=== PATIENT | female | born 1960 | race African-American/Black ===

== ENCOUNTER 2016-11-09 03:21 | Emergency (ER) | payer OTHER ==
--- NOTE | 2016-11-09 03:59 | ED ---
Anahi Monroe Matthew, scribed for Angel James MD on 11/09/16 at 0350 . Lower Extremity - HPI Summary HPI Summary: A 56 y/o female presents to the ED with a swollen right foot since 3 days ago. The patient was diagnosed with peripheral vascular disease on 11/06/16 and has not been able to sleep well, because she does not have to appropriate physician referral. Associated symptoms include mild right foot pain she noticed just [employer]. The pain is rated 2/10 in severity. She has dialysis at 05:00 today. - History of Current Complaint Chief Complaint: EDGeneral Stated Complaint: RIGHT FOOT SWOLLEN Time Seen by Provider: 11/09/16 03:33 Hx Obtained From: Patient Onset of Pain: Hours Onset/Duration: Still Present Severity Initially: Mild Severity Currently: Mild Pain Intensity: 2 Pain Scale Used: 0-10 Numeric Timing: Constant Location: Is Discrete @ - right foot Associated Signs And Symptoms: Positive: Swelling Able to Bear Weight: Yes - Allergies/Home Medications Allergies/Adverse Reactions: Allergies Allergy/AdvReac Type Severity Reaction Status Date / Time Chlorpromazine Allergy Unknown Verified 07/05/16 09:32 [From Thorazine] Reaction Details Codeine Allergy Unknown Verified 07/05/16 09:32 [From Tylenol with Codeine Reaction #3] Details Lorazepam [From Ativan] Allergy Unknown Verified 07/05/16 09:32 Reaction Details Warfarin [From Coumadin] Allergy Unknown Verified 07/05/16 09:32 Reaction Details PMH/Surg Hx/FS Hx/Imm Hx Endocrine/Hematology History: Reports: Hx Diabetes - type 2 Cardiovascular History: Reports: Hx Congestive Heart Failure, Hx Coronary Artery Disease, Hx Hypertension, Hx Myocardial Infarction - 12 years ago, Other Cardiovascular Problems/Disorders - HEART FAILURE Denies: Hx Pacemaker/ICD Respiratory History: Reports: Hx Chronic Obstructive Pulmonary Disease (COPD) History: Reports: Hx Chronic Renal Failure, Hx Dialysis - has been on dialysis for "over a year" per patient, Hx Renal Disease - Cancer History Hx Chemotherapy: No Hx Radiation Therapy: No - Surgical History Surgery Procedure, Year, and Place: TOE AMPUTATION, OVARIAN CYST REMOVED - Immunization History Date of Tetanus Vaccine: Unk Date of Influenza Vaccine: Fall 2014 Infectious Disease History: No Infectious Disease History: Denies: Traveled Outside the [place] in Last 30 Days - Family History Family History: No FHx of breast CA - Social History Alcohol Use: None Hx Substance Use: No Substance Use Type: Reports: None Hx Tobacco Use: Yes Smoking Status (MU): Former Smoker Review of Systems Constitutional: Negative Eyes: Negative ENT: Negative Cardiovascular: Negative Respiratory: Negative Gastrointestinal: Negative Genitourinary: Negative Positive: Myalgia - right foot pain, Edema - right foot Skin: Negative Neurological: Negative Psychological: Normal All Other Systems Reviewed And Are Negative: Yes Physical Exam Triage Information Reviewed: Yes Vital Signs On Initial Exam: Initial Vitals Temp Pulse Resp BP Pulse Ox 98.4 F 84 16 178/56 97 11/09/16 03:28 11/09/16 03:28 11/09/16 03:28 11/09/16 03:28 11/09/16 03:28 Vital Signs Reviewed: Yes Appearance: Positive: Well-Appearing, No Pain Distress Skin: Positive: Warm Eyes: Positive: PAULA ENT: Positive: Hearing grossly normal Neck: Positive: Supple Respiratory/Lung Sounds: Positive: Breath Sounds Present Cardiovascular: Positive: RRR Abdomen Description: Positive: Nontender, Soft Musculoskeletal: Positive: Other - lt foot s/p transmetatarsal amp, rt foot mild swelluing, ARM, GOOD CAP REFILL AND SENSATION, 1+ PULSE Neurological: Positive: Sensory/Motor Intact Diagnostics - Vital Signs Vital Signs Temp Pulse Resp BP Pulse Ox 11/09/16 03:28 98.4 F 84 16 178/56 97 - Laboratory Lab Statement: Any lab studies that have been ordered have been reviewed, and results considered in the medical decision making process. Lower Extremity Course/Dx - Course Assessment/Plan: A 56 y/o female presents to the ED with right foot pain and swelling. The patient was just diagnosed with peripheral vascular disease and was worried about the swelling. She will be discharged home and follow-up with her PCP. - Diagnoses Provider Diagnoses: Foot swelling Discharge - Discharge Plan Condition: Stable Disposition: HOME Patient Education Materials: Leg Edema (ED) Referrals: Fe Atkins MD [Primary Care Provider] - 2 Days Additional Instructions: Please follow-up with your primary care physician in two days. The documentation as recorded by the Anahi echavarria Matthew accurately reflects the service I personally performed and the decisions made by , Angel James MD.
[2016-11-09 05:09] VITALS: BP 174/62
== END 2016-11-09 05:08 | disposition home or self-care (01) ==
LOC: ED 03:21
DX: M79.671 Pain in right foot (principal); R60.0 Localized edema
CPT/HCPCS: 99282

== ENCOUNTER 2016-11-19 10:26 | Emergency (ER) | payer OTHER ==
[2016-11-19 11:17] LABS: Add Diff/Slide Review? Slide Review Added; Comments Flag Yes; Hematocrit 38 % (35-47); Hemoglobin 12.4 g/dl (12.0-16.0); Mean Corpuscular HGB Conc 33 g/dl (31-36); Mean Corpuscular Hemoglobin 32 pg (27-31); Mean Corpuscular Volume 97 fL (80-97); Mean Platelet Volume 7 um3 (7.4-10.4); Red Blood Count 3.88 10^6/ul (4.0-5.4); Red Cell Distribution Width 16 % (10.5-15); White Blood Count 8.4 10^3/ul (3.5-10.8)
[2016-11-19] MEDS ORDERED: Aspirin TAB* 325 MG PO ONE ×2 (11:25→11:42)
[2016-11-19 11:28] LABS: Albumin 3.7 g/dL (3.2-5.2); BUN/Creatinine Ratio 7.9 (8-20); EGFR Non-African American 19.4 (>60); Potassium 3.2 mmol/L (3.5-5.0); Total Bilirubin 0.2 mg/dL (0.2-1.0); Total Protein 7.7 g/dL (6.4-8.9)
--- NOTE | 2016-11-19 12:08 | RAD ---
Indication: Chest pain. Single frontal view of the chest performed at 1140 hours was reviewed. Comparison is made with previous exam dated April 20, 2016. No mediastinal shift is noted. Heart is of normal size and configuration. Lung cedillo appear clear. IMPRESSION: NO ACTIVE CARDIOPULMONARY DISEASE IS NOTED.
--- NOTE | 2016-11-19 15:11 | ED ---
Anahi Monroe Matthew, scribed for Ayaan Richard MD on 11/19/16 at 1125 . HPI Chest Pain - HPI Summary HPI Summary: A 56 y/o female presents to the ED with mid sternal, constant chest pressure since 10:00 this morning. The pain is describe as dull and achy, and currently rated 1/10 in severity. The patient was at dialysis when she began to have the chest pressure. She was given NTG at that time, which partially alleviated the pain. Associated symptoms include generalized weakness and lightheadedness. The patient denies nausea and diaphoresis. Her chest pain is unaffected by palpation of the chest. She has chronic SOB. The patient's had similar pain at dialysis in the past, and was sent to [facility]. - History of Current Complaint Chief Complaint: EDChestPainROMI Time Seen by Provider: 11/19/16 10:59 Hx Obtained From: Patient Onset/Duration: Started Hours Ago, Atraumatic, Still Present Time of Onset: 10:00 Timing: Constant Initial Severity: Moderate Current Severity: Mild Pain Intensity: 1 Pain Scale Used: 0-10 Numeric Chest Pain Location: Mid Sternal Chest Pain Radiates: No Character: Dull/Aching, Pressure/Squeezing Alleviating Factor(s): NTG 123 Associated Signs and Symptoms: Positive: Chest Pain, Shortness of Breath, Lightheadedness. Negative: Diaphoresis, Nausea, Vomiting - Allergy/Home Medications Allergies/Adverse Reactions: Allergies Allergy/AdvReac Type Severity Reaction Status Date / Time Chlorpromazine Allergy Unknown Verified 07/05/16 09:32 [From Thorazine] Reaction Details Codeine Allergy Unknown Verified 07/05/16 09:32 [From Tylenol with Codeine Reaction #3] Details Lorazepam [From Ativan] Allergy Unknown Verified 07/05/16 09:32 Reaction Details Warfarin [From Coumadin] Allergy Unknown Verified 07/05/16 09:32 Reaction Details PMH/Surg Hx/FS Hx/Imm Hx Endocrine/Hematology History: Reports: Hx Diabetes - type 2 Cardiovascular History: Reports: Hx Congestive Heart Failure, Hx Coronary Artery Disease, Hx Hypertension, Hx Myocardial Infarction - 12 years ago, Other Cardiovascular Problems/Disorders - HEART FAILURE Denies: Hx Pacemaker/ICD Respiratory History: Reports: Hx Chronic Obstructive Pulmonary Disease (COPD) History: Reports: Hx Chronic Renal Failure, Hx Dialysis - has been on dialysis for "over a year" per patient, Hx Renal Disease - Cancer History Hx Chemotherapy: No Hx Radiation Therapy: No - Surgical History Surgery Procedure, Year, and Place: TOE AMPUTATION, OVARIAN CYST REMOVED - Immunization History Date of Tetanus Vaccine: Unk Date of Influenza Vaccine: Fall 2014 Infectious Disease History: Yes Infectious Disease History: Denies: Traveled Outside the [place] in Last 30 Days - Family History Known Family History: Positive: None Family History: No FHx of breast CA - Social History Alcohol Use: None Hx Substance Use: No Substance Use Type: Reports: None Hx Tobacco Use: Yes Smoking Status (MU): Former Smoker Review of Systems Constitutional: Negative Negative: Skin Diaphoresis Eyes: Negative ENT: Negative Positive: Chest Pain - mid sternal Respiratory: Negative Gastrointestinal: Negative Negative: Vomiting, Nausea Genitourinary: Negative Musculoskeletal: Negative Skin: Negative Neurological: Other - lightheadedness Positive: Weakness - generalized Psychological: Normal All Other Systems Reviewed And Are Negative: Yes Physical Exam Triage Information Reviewed: Yes Vital Signs On Initial Exam: Initial Vitals Temp Pulse Resp BP Pulse Ox 98.0 F 86 20 122/65 100 11/19/16 10:29 11/19/16 10:29 11/19/16 10:29 11/19/16 10:29 11/19/16 10:29 Vital Signs Reviewed: Yes Appearance: Positive: Well-Appearing, No Pain Distress Skin: Positive: Warm, Skin Color Reflects Adequate Perfusion, Dry Head/Face: Positive: Normal Head/Face Inspection Eyes: Positive: Normal ENT: Positive: Normal ENT inspection Neck: Positive: Supple, Nontender Respiratory/Lung Sounds: Positive: Clear to Auscultation, Breath Sounds Present Cardiovascular: Positive: RRR Abdomen Description: Positive: Nontender, Soft Bowel Sounds: Positive: Present Musculoskeletal: Positive: Normal Neurological: Positive: Normal, Sensory/Motor Intact, Alert, Oriented to Person Place, Time Psychiatric: Positive: Normal, Affect/Mood Appropriate Diagnostics - Vital Signs Vital Signs Temp Pulse Resp BP Pulse Ox 11/19/16 10:29 98.0 F 86 20 122/65 100 - Laboratory Lab Results: Lab Results 11/19/16 11/19/16 11/19/16 Range/Units 10:44 10:51 11:18 WBC 8.4 (3.5-10.8) 10^3/ul RBC 3.88 L (4.0-5.4) 10^6/ul Hgb 12.4 (12.0-16.0) g/dl Hct 38 (35-47) % MCV 97 (80-97) fL MCH 32 H (27-31) pg MCHC 33 (31-36) g/dl RDW 16 H (10.5-15) % Plt Count 304 (150-450) 10^3/ul MPV 7 L (7.4-10.4) um3 Neut % (Auto) 68.7 (38-83) % Lymph % (Auto) 18.8 L (25-47) % [place] % (Auto) 9.9 H (1-9) % Eos % (Auto) 1.2 (0-6) % Baso % (Auto) 1.4 (0-2) % Absolute Neuts (auto) 5.8 (1.5-7.7) 10^3/ul Absolute Lymphs (auto) 1.6 (1.0-4.8) 10^3/ul Absolute Monos (auto) 0.8 (0-0.8) 10^3/ul Absolute Eos (auto) 0.1 (0-0.6) 10^3/ul Absolute Basos (auto) 0.1 (0-0.2) 10^3/ul Absolute Nucleated RBC 0.02 10^3/ul Nucleated RBC % 0.3 Sodium 130 L (133-145) mmol/L Potassium 3.2 L (3.5-5.0) mmol/L Chloride 92 L (101-111) mmol/L Carbon Dioxide 34 H (22-32) mmol/L Anion Gap 4 (2-11) mmol/L BUN 20 (6-24) mg/dL Creatinine 2.54 H (0.51-0.95) mg/dL Est GFR ( Amer) 25.0 (>60) Est GFR (Non-Af Amer) 19.4 (>60) BUN/Creatinine Ratio 7.9 L (8-20) Glucose 101 H (70-100) mg/dL Lactic Acid 0.9 (0.5-2.0) mmol/L Calcium 9.0 (8.6-10.3) mg/dL Total Bilirubin 0.20 (0.2-1.0) mg/dL AST 17 (13-39) U/L ALT 8 (7-52) U/L Alkaline Phosphatase 94 (34-104) U/L Troponin I 0.00 (<0.04) ng/mL Total Protein 7.7 (6.4-8.9) g/dL Albumin 3.7 (3.2-5.2) g/dL Globulin 4.0 (2-4) g/dL Albumin/Globulin Ratio 0.9 L (1-3) 11/19/16 Range/Units 14:00 WBC (3.5-10.8) 10^3/ul RBC (4.0-5.4) 10^6/ul Hgb (12.0-16.0) g/dl Hct (35-47) % MCV (80-97) fL MCH (27-31) pg MCHC (31-36) g/dl RDW (10.5-15) % Plt Count (150-450) 10^3/ul MPV (7.4-10.4) um3 Neut % (Auto) (38-83) % Lymph % (Auto) (25-47) % [place] % (Auto) (1-9) % Eos % (Auto) (0-6) % Baso % (Auto) (0-2) % Absolute Neuts (auto) (1.5-7.7) 10^3/ul Absolute Lymphs (auto) (1.0-4.8) 10^3/ul Absolute Monos (auto) (0-0.8) 10^3/ul Absolute Eos (auto) (0-0.6) 10^3/ul Absolute Basos (auto) (0-0.2) 10^3/ul Absolute Nucleated RBC 10^3/ul Nucleated RBC % Sodium (133-145) mmol/L Potassium (3.5-5.0) mmol/L Chloride (101-111) mmol/L Carbon Dioxide (22-32) mmol/L Anion Gap (2-11) mmol/L BUN (6-24) mg/dL Creatinine (0.51-0.95) mg/dL Est GFR ( Amer) (>60) Est GFR (Non-Af Amer) (>60) BUN/Creatinine Ratio (8-20) Glucose (70-100) mg/dL Lactic Acid (0.5-2.0) mmol/L Calcium (8.6-10.3) mg/dL Total Bilirubin (0.2-1.0) mg/dL AST (13-39) U/L ALT (7-52) U/L Alkaline Phosphatase (34-104) U/L Troponin I 0.01 (<0.04) ng/mL Total Protein (6.4-8.9) g/dL Albumin (3.2-5.2) g/dL Globulin (2-4) g/dL Albumin/Globulin Ratio (1-3) Result Diagrams: 11/19/16 10:51 11/19/16 10:44 Lab Statement: Any lab studies that have been ordered have been reviewed, and results considered in the medical decision making process. - Radiology CXR Xray Interpretation: No Acute Changes - No Active Cardiopulmonary Disease is noted Radiology Interpretation Completed By: Radiologist - EKG 10:27 Cardiac Rate: NL - 78 bpm EKG Rhythm: Sinus Rhythm Ectopy: PVCs Chest Pain Course/Dx - Course Course Of Treatment: Rosa Tomas had an episode of CP after dialysis today. This has happened many times before. It was almost completely resoved by the time she got here and did continue to resolve. She had a normal W/U here including two troponins and went home in stable condition. - Diagnoses Provider Diagnoses: Chest pain Discharge - Discharge Plan Condition: Stable Disposition: HOME Patient Education Materials: Chest Pain (ED) Referrals: Fe Atkins MD [Primary Care Provider] - 2 Days Additional Instructions: Please follow-up with your primary care physician. The documentation as recorded by the Anahi echavarria Matthew accurately reflects the service I personally performed and the decisions made by me, Ayaan Richard MD.
[2016-11-19 15:46] VITALS: BP 115/66
== END 2016-11-19 15:44 | disposition home or self-care (01) ==
LOC: ED 10:26
DX: R07.9 Chest pain, unspecified (principal); R06.2 Wheezing; R42 Dizziness and giddiness; Z99.2 Dependence on renal dialysis; Z87.891 Personal history of nicotine dependence
CPT/HCPCS: 36415; 71010; 80053; 83605; 84484; 85025; 93005; 99283

== ENCOUNTER → 2017-02-26 17:54 | Emergency (ER) | payer OTHER ==
[2017-02-26 19:52] LABS: Hematocrit 33 % (35-47); Hemoglobin 11.1 g/dl (12.0-16.0); Mean Corpuscular HGB Conc 33 g/dl (31-36); Mean Corpuscular Hemoglobin 32 pg (27-31); Mean Corpuscular Volume 97 fL (80-97); Mean Platelet Volume 6 um3 (7.4-10.4); Red Blood Count 3.45 10^6/ul (4.0-5.4); Red Cell Distribution Width 18 % (10.5-15); White Blood Count 7.9 10^3/ul (3.5-10.8)
[2017-02-26 20:01] LABS: Urine Bacteria Absent (Absent); Urine Bilirubin Negative (Negative); Urine Glucose Negative (Negative); Urine Nitrite Negative (Negative)
[2017-02-26 20:06] LABS: ALT 7 U/L (7-52); AST 13 U/L (13-39); Albumin 3.5 g/dL (3.2-5.2); Alkaline Phosphatase 102 U/L (34-104); Anion Gap 6 mmol/L (2-11); BUN/Creatinine Ratio 6.1 (8-20); Blood Urea Nitrogen 18 mg/dL (6-24); CO2 Carbon Dioxide 31 mmol/L (22-32); Calcium 8.4 mg/dL (8.6-10.3); Chloride 92 mmol/L (101-111); EGFR African American 20.9 (>60); EGFR Non-African American 16.2 (>60); Globulin 3.6 g/dL (2-4); Glucose 145 mg/dL (70-100); Potassium 3.3 mmol/L (3.5-5.0); Sodium 129 mmol/L (133-145); Total Protein 7.1 g/dL (6.4-8.9)
[2017-02-26 20:07] LABS: Benzodiazepine Urine Screen None Detected (None Detect)
[2017-02-26 20:34] LABS: Acetaminophen < 15 mcg/mL; Alcohol < 10 mg/dL (<10); Salicylate < 2.50 mg/dL (<30)
[2017-02-26 20:44] LABS: TSH (Thyroid Stimulating Horm) 2.65 mcIU/mL (0.34-5.60)
--- NOTE | 2017-02-26 23:03 | ED ---
Prince Monroe Erika, scribed for Ayaan Richard MD on 02/26/17 at 2051 . Psychiatric Complaint - HPI Summary HPI Summary: Patient is a 56-year-old female presenting to the ED for a MHU evaluation. Patient reports she called her therapist today and told her she was upset and angry, and her therapist called the police. Pt reports she takes depakote and risperidol - therapist states pt has missed 11 doses of medications. Pt denies thoughts of harming herself or others. - History Of Current Complaint Chief Complaint: EDMentalHealth Time Seen by Provider: 02/26/17 18:22 Hx Obtained From: Patient, Other: - Therapist Onset/Duration: Gradual Onset, Lasting Weeks, Still Present Timing: Constant Severity Currently: Moderate Character: Angry Aggravating Factor(s): Medication Non-compliance Alleviating Factor(s): Nothing Has Suicidal: Denies: Thoughts Has Homicidal: Denies: Thoughts - Allergies/Home Medications Allergies/Adverse Reactions: Allergies Allergy/AdvReac Type Severity Reaction Status Date / Time Chlorpromazine Allergy Unknown Verified 07/05/16 09:32 [From Thorazine] Reaction Details Codeine Allergy Unknown Verified 07/05/16 09:32 [From Tylenol with Codeine Reaction #3] Details Lorazepam [From Ativan] Allergy Unknown Verified 07/05/16 09:32 Reaction Details Warfarin [From Coumadin] Allergy Unknown Verified 07/05/16 09:32 Reaction Details Home Medications: Home Medications B-Complex W/ C & Folic Acid [Suad-Fletcher] 1 tab PO DAILY 02/26/17 [History Confirmed 02/26/17] Divalproex DR TAB(*) [Depakote DR(*)] 500 mg PO TID 02/26/17 [History Confirmed 02/26/17] PMH/Surg Hx/FS Hx/Imm Hx Endocrine/Hematology History: Reports: Hx Diabetes - type 2 Cardiovascular History: Reports: Hx Congestive Heart Failure, Hx Coronary Artery Disease, Hx Hypertension, Hx Myocardial Infarction - 12 years ago, Other Cardiovascular Problems/Disorders - HEART FAILURE Denies: Hx Pacemaker/ICD Respiratory History: Reports: Hx Chronic Obstructive Pulmonary Disease (COPD) History: Reports: Hx Chronic Renal Failure, Hx Dialysis - has been on dialysis for "over a year" per patient, Hx Renal Disease - Cancer History Hx Chemotherapy: No Hx Radiation Therapy: No - Surgical History Surgery Procedure, Year, and Place: TOE AMPUTATION, OVARIAN CYST REMOVED - Immunization History Date of Tetanus Vaccine: Unk Date of Influenza Vaccine: Fall 2014 Infectious Disease History: Yes Infectious Disease History: Denies: Traveled Outside the [place] in Last 30 Days - Family History Family History: No FHx of breast CA - Social History Alcohol Use: None Hx Substance Use: No Substance Use Type: Reports: None Hx Tobacco Use: Yes Smoking Status (MU): Former Smoker Review of Systems Negative: Fever Psychological: Other - upset and angry All Other Systems Reviewed And Are Negative: Yes Physical Exam Triage Information Reviewed: Yes Vital Signs On Initial Exam: Initial Vitals Temp Pulse Resp BP Pulse Ox 99.9 F 100 20 181/97 94 02/26/17 18:11 02/26/17 18:11 02/26/17 18:11 02/26/17 18:11 02/26/17 18:11 Vital Signs Reviewed: Yes Appearance: Positive: Well-Appearing, No Pain Distress, Obese Skin: Positive: Warm, Skin Color Reflects Adequate Perfusion, Dry Head/Face: Positive: Normal Head/Face Inspection Eyes: Positive: Normal ENT: Positive: Normal ENT inspection Neck: Positive: Supple, Nontender Respiratory/Lung Sounds: Positive: Clear to Auscultation, Breath Sounds Present Cardiovascular: Positive: Tachycardia - at 100 bpm Abdomen Description: Positive: Nontender, Soft Bowel Sounds: Positive: Present Musculoskeletal: Positive: Normal Neurological: Positive: Normal Psychiatric: Positive: Affect/Mood Appropriate - Manny Coma Scale Coma Scale Total: 15 Diagnostics - Vital Signs Vital Signs Temp Pulse Resp BP Pulse Ox 02/26/17 18:13 99.9 F 100 20 181/97 94 02/26/17 18:11 99.9 F 100 20 181/97 94 - Laboratory Lab Results: Lab Results 02/26/17 02/26/17 02/26/17 Range/Units 19:45 19:45 19:45 WBC 7.9 (3.5-10.8) 10^3/ul RBC 3.45 L (4.0-5.4) 10^6/ul Hgb 11.1 L (12.0-16.0) g/dl Hct 33 L (35-47) % MCV 97 (80-97) fL MCH 32 H (27-31) pg MCHC 33 (31-36) g/dl RDW 18 H (10.5-15) % Plt Count 218 (150-450) 10^3/ul MPV 6 L (7.4-10.4) um3 Neut % (Auto) 68.8 (38-83) % Lymph % (Auto) 17.7 L (25-47) % [place] % (Auto) 11.6 H (1-9) % Eos % (Auto) 0.9 (0-6) % Baso % (Auto) 1.0 (0-2) % Absolute Neuts (auto) 5.4 (1.5-7.7) 10^3/ul Absolute Lymphs (auto) 1.4 (1.0-4.8) 10^3/ul Absolute Monos (auto) 0.9 H (0-0.8) 10^3/ul Absolute Eos (auto) 0.1 (0-0.6) 10^3/ul Absolute Basos (auto) 0.1 (0-0.2) 10^3/ul Absolute Nucleated RBC 0.01 10^3/ul Nucleated RBC % 0.2 Sodium 129 L (133-145) mmol/L Potassium 3.3 L (3.5-5.0) mmol/L Chloride 92 L (101-111) mmol/L Carbon Dioxide 31 (22-32) mmol/L Anion Gap 6 (2-11) mmol/L BUN 18 (6-24) mg/dL Creatinine 2.97 H (0.51-0.95) mg/dL Est GFR ( Amer) 20.9 (>60) Est GFR (Non-Af Amer) 16.2 (>60) BUN/Creatinine Ratio 6.1 L (8-20) Glucose 145 H (70-100) mg/dL Calcium 8.4 L (8.6-10.3) mg/dL Total Bilirubin 0.20 (0.2-1.0) mg/dL AST 13 (13-39) U/L ALT 7 (7-52) U/L Alkaline Phosphatase 102 (34-104) U/L Total Protein 7.1 (6.4-8.9) g/dL Albumin 3.5 (3.2-5.2) g/dL Globulin 3.6 (2-4) g/dL Albumin/Globulin Ratio 1.0 (1-3) TSH 2.65 (0.34-5.60) mcIU/mL Urine Color Yellow Urine Appearance Cloudy Urine pH 6.0 (5-9) Ur Specific [place] 1.014 (1.010-1.030) Urine Protein 3+(>=500 mg/dl) H (Negative) Urine Ketones Negative (Negative) Urine Blood 1+ H (Negative) Urine Nitrate Negative (Negative) Urine Bilirubin Negative (Negative) Urine Urobilinogen Negative (Negative) Ur Leukocyte Esterase 3+ H (Negative) Urine WBC (Auto) 3+(>20/hpf) H (Absent) Urine RBC (Auto) 2+(6-10/hpf) H (Absent) Ur Squamous Epith Cells Present H (Absent) Urine Bacteria Absent (Absent) Hyaline Casts Present H (Absent) Urine Glucose Negative (Negative) Salicylates < 2.50 (<30) mg/dL Urine Opiates Screen (None Detect) Acetaminophen < 15 mcg/mL Ur Barbiturates Screen (None Detect) Ur Phencyclidine Scrn (None Detect) Ur Amphetamines Screen (None Detect) U Benzodiazepines Scrn (None Detect) Urine Cocaine Screen (None Detect) U Cannabinoids Screen (None Detect) Serum Alcohol < 10 (<10) mg/dL 02/26/17 Range/Units 19:45 WBC (3.5-10.8) 10^3/ul RBC (4.0-5.4) 10^6/ul Hgb (12.0-16.0) g/dl Hct (35-47) % MCV (80-97) fL MCH (27-31) pg MCHC (31-36) g/dl RDW (10.5-15) % Plt Count (150-450) 10^3/ul MPV (7.4-10.4) um3 Neut % (Auto) (38-83) % Lymph % (Auto) (25-47) % [place] % (Auto) (1-9) % Eos % (Auto) (0-6) % Baso % (Auto) (0-2) % Absolute Neuts (auto) (1.5-7.7) 10^3/ul Absolute Lymphs (auto) (1.0-4.8) 10^3/ul Absolute Monos (auto) (0-0.8) 10^3/ul Absolute Eos (auto) (0-0.6) 10^3/ul Absolute Basos (auto) (0-0.2) 10^3/ul Absolute Nucleated RBC 10^3/ul Nucleated RBC % Sodium (133-145) mmol/L Potassium (3.5-5.0) mmol/L Chloride (101-111) mmol/L Carbon Dioxide (22-32) mmol/L Anion Gap (2-11) mmol/L BUN (6-24) mg/dL Creatinine (0.51-0.95) mg/dL Est GFR ( Amer) (>60) Est GFR (Non-Af Amer) (>60) BUN/Creatinine Ratio (8-20) Glucose (70-100) mg/dL Calcium (8.6-10.3) mg/dL Total Bilirubin (0.2-1.0) mg/dL AST (13-39) U/L ALT (7-52) U/L Alkaline Phosphatase (34-104) U/L Total Protein (6.4-8.9) g/dL Albumin (3.2-5.2) g/dL Globulin (2-4) g/dL Albumin/Globulin Ratio (1-3) TSH (0.34-5.60) mcIU/mL Urine Color Urine Appearance Urine pH (5-9) Ur Specific [place] (1.010-1.030) Urine Protein (Negative) Urine Ketones (Negative) Urine Blood (Negative) Urine Nitrate (Negative) Urine Bilirubin (Negative) Urine Urobilinogen (Negative) Ur Leukocyte Esterase (Negative) Urine WBC (Auto) (Absent) Urine RBC (Auto) (Absent) Ur Squamous Epith Cells (Absent) Urine Bacteria (Absent) Hyaline Casts (Absent) Urine Glucose (Negative) Salicylates (<30) mg/dL Urine Opiates Screen None detected (None Detect) Acetaminophen mcg/mL Ur Barbiturates Screen None detected (None Detect) Ur Phencyclidine Scrn None detected (None Detect) Ur Amphetamines Screen None detected (None Detect) U Benzodiazepines Scrn None detected (None Detect) Urine Cocaine Screen None detected (None Detect) U Cannabinoids Screen Presumptive positive H (None Detect) Serum Alcohol (<10) mg/dL Result Diagrams: 02/26/17 19:45 02/26/17 19:45 Lab Statement: Any lab studies that have been ordered have been reviewed, and results considered in the medical decision making process. Course/Dx - Course Course Of Treatment: Patient is medically cleared for MHU evaluation at 20:43 - Differential Dx/Clinical Impression Provider Diagnosis: Psychosis Discharge - Discharge Plan Condition: Stable Disposition: OTHER Discharge Disposition Comment: Change of Shift The documentation as recorded by the Prince echavarria Erika accurately reflects the service I personally performed and the decisions made by me, Ayaan Richard MD.
[2017-02-26 23:04] VITALS: BP 188/90
== END ==
LOC: ED 17:54
DX: F29 Unspecified psychosis not due to a substance or known physiological condition (principal); Z87.891 Personal history of nicotine dependence
CPT/HCPCS: 36415; 80053; 80307; 80320; 80329; 81003; 81015; 84443; 85025; 87086; 99282; G0480

== ENCOUNTER 2017-03-03 00:48 | Inpatient (IN) | payer OTHER ==
[2017-03-03] MEDS ORDERED: Levalbuterol 0.63MG/3ML NEB INH ONE (00:53)
[2017-03-03] MEDS ORDERED: methylPREDNISolone 125 MG* 2 ML VIAL IV ONE (00:56)
[2017-03-03 01:09] LABS: Hematocrit 34 % (35-47); Hemoglobin 11.1 g/dl (12.0-16.0); Mean Corpuscular HGB Conc 33 g/dl (31-36); Mean Corpuscular Hemoglobin 32 pg (27-31); Mean Corpuscular Volume 97 fL (80-97); Mean Platelet Volume 7 um3 (7.4-10.4); Red Blood Count 3.49 10^6/ul (4.0-5.4); Red Cell Distribution Width 17 % (10.5-15); White Blood Count 11.2 10^3/ul (3.5-10.8)
[2017-03-03 01:12] LABS: BIPAP 14/6; FIO2 100
[2017-03-03 01:22] LABS: PCO2 Arterial 70 mmHg (35-45)
[2017-03-03 01:25] LABS: Albumin 3.6 g/dL (3.2-5.2); BUN/Creatinine Ratio 8.7 (8-20); Calcium 8.5 mg/dL (8.6-10.3); EGFR African American 14.6 (>60); EGFR Non-African American 11.4 (>60); Globulin 3.7 g/dL (2-4); Potassium 3.2 mmol/L (3.5-5.0); Total Bilirubin 0.3 mg/dL (0.2-1.0); Total Protein 7.3 g/dL (6.4-8.9)
[2017-03-03] MEDS ORDERED: Nitroglycerin 2% OINT* 1 GM PAK TOPICAL ONE (01:29)
[2017-03-03] MEDS ORDERED: Benzonatate CAP* 100 MG PO PRN (02:09)
[2017-03-03] MEDS ORDERED: Ipratropium 0.5MG/2.5ML NEB* 0.5 MG/2.5 ML NEB.SOLN INH PRN (02:09)
[2017-03-03] MEDS ORDERED: Polyethylene Glycol 3350* 17 GM PACKET PO PRN (02:09)
[2017-03-03] MEDS ORDERED: hydrOXYzine HCL TAB* 10 MG PO PRN (02:09)
[2017-03-03] MEDS: Albuterol 2.5 MG/3 ML NEB.SOL* (0.083%) INH SCH ×2 (02:21→07:19)
[2017-03-03 02:22] LABS: BIPAP 14/6; FIO2 50
[2017-03-03 02:24] LABS: PCO2 Arterial 70 mmHg (35-45)
[2017-03-03] MEDS ORDERED: Azithromycin IV(*) 500 MG in NS 0.9% 250 ML* 250 ML IVPB SCH (03:00)
[2017-03-03] MEDS ORDERED: Dextrose 50% Syringe 50 ML* 25 GM/50 ML SYRINGE IV PUSH PRN (04:04)
[2017-03-03 04:49] LABS: Troponin I 0.03 ng/mL (<0.04)
[2017-03-03] MEDS: Heparin VIAL(*) 5000 UNITS/ML VIAL (FIVE THOUSAND) SUBCUT SCH ×3 (05:41→21:08)
[2017-03-03] MEDS: methylPREDNISolone SOD 40 MG* 1 ML VIAL IV SCH ×2 (05:41→18:11)
--- NOTE | 2017-03-03 05:45 | ED ---
I, Oh,Mariaelena, scribed for Perez Mora MD on 03/03/17 at 0058 . Shortness of Breath - HPI Summary HPI Summary: This 56 y/o female is BIBA for acute onset of SOB since 30 minutes ago. Pt was able to speak full sentences at time of initial encounter. The respiratory distress continued to deteriorate in spite of atropine and albuterol, and pt was noted with 70 % at a point en route. She is brought into ED with BiPAP mask on. Pt is a F dialysis pt and had last one 2 days ago. She is due for another one upcoming morning. PMHx does include COPD, HTN, HLD, DM with ERD and hemodialysis, CAD s/p stent, NM, and bipolar. - History of Current Complaint Chief Complaint: EDRespiratoryDistress Hx Obtained From: Patient, EMS Onset/Duration: Sudden Onset Timing: Constant Dyspnea At: Rest Aggrevating Factors: Nothing Alleviating Factors: Nothing Associated Signs & Symptoms: Wheezing, Chest Pain Unrelated to Cough - Allergy/Home Medications Allergies/Adverse Reactions: Allergies Allergy/AdvReac Type Severity Reaction Status Date / Time Chlorpromazine Allergy Unknown Verified 03/03/17 01:00 [From Thorazine] Reaction Details Codeine Allergy Unknown Verified 03/03/17 01:00 [From Tylenol with Codeine Reaction #3] Details Lorazepam [From Ativan] Allergy Unknown Verified 03/03/17 01:00 Reaction Details Warfarin [From Coumadin] Allergy Unknown Verified 03/03/17 01:00 Reaction Details Home Medications: Home Medications Benzonatate CAP* [Tessalon 100 MG CAP*] 100 mg PO TID PRN 03/03/17 [History Confirmed 03/03/17] Clopidogrel TAB* [Plavix TAB*] 75 mg PO DAILY 03/03/17 [History Confirmed ] Ipratropium 0.5MG/2.5ML NEB* [Atrovent 0.5 MG NEB.LUZ*] 0.5 mg INH Q6H PRN 03/03 [History Confirmed 03/03/17] Nitroglycerin TAB 0.4 MG* 0.4 mg SL Q5M PRN 03/03/17 [History Confirmed 03/03/17 ] Polyethylene Glycol 3350 BTL* [Miralax] 1 pow PO DAILY PRN 03/03/17 [History Confirmed 03/03/17] Sodium Polystyrene Sulfonate [Sodium Polystyrene Sulfon] 15 gm PO DAILY PRN [History Confirmed 03/03/17] hydrOXYzine HCL TAB* [Atarax 10 MG TAB*] 10 mg PO TID PRN 03/03/17 [History Confirmed 03/03/17] PMH/Surg Hx/FS Hx/Imm Hx Endocrine/Hematology History: Reports: Hx Diabetes - type 2 Cardiovascular History: Reports: Hx Congestive Heart Failure, Hx Coronary Artery Disease, Hx Hypertension, Hx Myocardial Infarction - 12 years ago, Other Cardiovascular Problems/Disorders - HEART FAILURE Denies: Hx Pacemaker/ICD Respiratory History: Reports: Hx Chronic Obstructive Pulmonary Disease (COPD) History: Reports: Hx Chronic Renal Failure, Hx Dialysis - has been on dialysis for "over a year" per patient, Hx Renal Disease Psychiatric History: Denies: Hx Eating Disorder - Cancer History Hx Chemotherapy: No Hx Radiation Therapy: No - Surgical History Surgery Procedure, Year, and Place: TOE AMPUTATION, OVARIAN CYST REMOVED - Immunization History Date of Tetanus Vaccine: Unk Date of Influenza Vaccine: Fall 2014 Infectious Disease History: Denies: Traveled Outside the [place] in Last 30 Days - Family History Known Family History: Negative: Other Family History: No FHx of breast CA - Social History Alcohol Use: None Hx Substance Use: No Substance Use Type: Reports: None Hx Tobacco Use: Yes Smoking Status (MU): Former Smoker Review of Systems Negative: Fever Negative: Photophobia, Erythema Negative: Sore Throat, Nasal Discharge Positive: Chest Pain Positive: Shortness Of Breath Negative: Abdominal Pain, Vomiting, Nausea Negative: dysuria, hematuria Negative: Myalgia Negative: Rash Neurological: Other - Negative for dizziness Negative: Headache Negative: Anxious, Depressed All Other Systems Reviewed And Are Negative: Yes Physical Exam - Summary Physical Exam Summary: Constitutional: Well-developed, Well-nourished, Alert. (-) Distressed Skin: Warm, Dry HENT: Normocephalic; Atraumatic Eyes: Conjunctiva normal Neck: Musculoskeletal ROM normal neck. (-) JVD, (-) Stridor, (-) Tracheal deviation Cardio: Rhythm regular, rate normal, Heart sounds normal; Intact distal pulses; The pedal pulses are 2+ and symmetric. Radial pulses are 2+ and symmetric. (-) Murmur Pulmonary/Chest wall: Diminished breath sound. BiPAP mask on. Abd: Soft, (-) Tenderness, (-) Distension, (-) Guarding, (-) Rebound Musculoskeletal: (-) Edema Lymph: (-) Cervical adenopathy Neuro: Alert, Oriented x3 Psych: Mood and affect Normal Triage Information Reviewed: Yes Vital Signs Reviewed: Yes Diagnostics - Laboratory Result Diagrams: 03/03/17 00:50 03/03/17 00:50 Lab Statement: Any lab studies that have been ordered have been reviewed, and results considered in the medical decision making process. - Radiology CXR Xray Interpretation: Positive (See Comments) - Cephalization of the vessels. No infiltrates. Radiology Interpretation Completed By: ED Physician - See EMR - EKG 0051 Cardiac Rate: Other Rate - a-flutter with rapid afib EKG Rhythm: Atrial Flutter ST Segment: Normal EKG Interpretation: a-flutter with rapid afib Re-Evaluation - Re-Evaluation First Eval Re-Evaluation Time: 01:27 Change: Improved Comment: Pt confirms that she is full code Course/Dx - Course Assessment/Plan: This 56 y/o female is BIBA to ED with BiPAP machine on for acute respiratory distress. Pt was able to speak full sentences at time of initial encounter, but her breathing worsens in spite of - Diagnoses Provider Diagnoses: CO2 narcosis, Respiratory failure, COPD exacerbation - Physician Notifications Discussed Care of Patient With: Dr. Gandara (Hospitalist) at 0143 AM Time Discussed With Above Provider: 01:43 - Critical Care Time Critical Care Time: 30-74 min - 45 minutes Discharge - Discharge Plan Condition: Stable Disposition: ADMITTED TO [facility] Referrals: Fe Atkins MD [Primary Care Provider] - The documentation as recorded by the Bravo echavarria Soohyun accurately reflects the service I personally performed and the decisions made by me, Perez Mora MD.
[2017-03-03 06:03] LABS: Hematocrit 29 % (35-47); Mean Corpuscular HGB Conc 34 g/dl (31-36); Mean Corpuscular Hemoglobin 33 pg (27-31); Mean Corpuscular Volume 96 fL (80-97); Mean Platelet Volume 6 um3 (7.4-10.4); Red Blood Count 3.06 10^6/ul (4.0-5.4); Red Cell Distribution Width 17 % (10.5-15); White Blood Count 10.4 10^3/ul (3.5-10.8)
[2017-03-03 06:21] LABS: BUN/Creatinine Ratio 9.5 (8-20); Calcium 7.9 mg/dL (8.6-10.3); EGFR African American 15.3 (>60); EGFR Non-African American 11.9 (>60); Potassium 4.3 mmol/L (3.5-5.0)
[2017-03-03] MEDS: Insulin LISPRO* 1 UNITS UNIT SUBCUT SCH ×4 (06:22→21:12)
--- NOTE | 2017-03-03 07:48 | RAD ---
INDICATION: Short of breath COMPARISON: November 19, 2016 TECHNIQUE: An AP portable view obtained at 0117 hours is submitted. FINDINGS: Bones/Soft Tissues: There are no acute bony findings. Cardiomediastinal: The heart is normal in size. The central pulmonary vessels and interstitium are prominent compatible with interstitial congestion. Given these diffuse changes coexistent infiltrate cannot be excluded.. Lungs: No focal consolidative findings. Pleura: There are no pleural effusions. Other: None IMPRESSION: VASCULAR CONGESTIVE FINDINGS.
[2017-03-03] MEDS ORDERED: Perflutren Lipid Microsphere* 3 ML VIAL ONE (07:50)
--- NOTE | 2017-03-03 08:41 | HP ---
HISTORY AND PHYSICAL: DATE OF ADMISSION: 03/03/17 PRIMARY CARE PROVIDER: Dr. Atkins. MAINTENANCE SHOP TECHNICIAN: Dr. Henning. CASE PREPARER AND LINER: Dr. Hodgson. CHIEF COMPLAINT: Shortness of breath. HISTORY OF PRESENT ILLNESS: Ms. Tomas is a 56-year-old female with a history of coronary artery disease, peripheral arterial disease, end-stage renal disease , hypertension, hyperlipidemia, type 2 diabetes, as well as COPD, who presented to the emergency room with complaints of shortness of breath. The patient is currently on BiPAP and somewhat sleepy; therefore, her nephew provides bulk of the history. The patient's nephew states that on the evening of 03/02/17, the patient came to visit her nephew. She was noted to be very jovial and in a good mood. She was not using her oxygen at that period of time. The patient's family drove her home and they noted that her house was in more disarray than usual. The patient, however, was felt to be stable for being home alone at that time. Around midnight, on 02/10/17, the patient called her nephew and stated that she could not breathe. He asked if she wanted an ambulance and she said no, that she just needed him to come over and take her to the ER. When the patient's nephew arrived, he tried using the intercom/buzzer system to get buzzed into her apartment; however, this was nonfunctioning. The patient then had to walk all the way to the door to let her nephew in. Her nephew notes that once she arrived to the door she was incredibly short of breath and asked for an ambulance to be called. The patient states now, after being treated with BiPAP, that her breathing is much improved. The patient is able to tell me that she has been going to her dialysis appointments as usual and taking her medications as prescribed. The patient denies anything out of the ordinary. She denies any recent cough or sputum production. PAST MEDICAL HISTORY: 1. ESRD. 2. CAD. 3. PAD, status post left groin stent. 4. Hypertension. 5. Hyperlipidemia. 6. Type 2 diabetes. 7. Gout. 8. Schizoaffective disorder, bipolar type. 9. COPD. PAST SURGICAL HISTORY: Unobtainable from the patient currently as she falls asleep during my exam. MEDICATIONS: 1. MiraLAX 17 g p.o. daily p.r.n. constipation. 2. Kayexalate 15 g p.o. daily p.r.n. high potassium as directed by Dialysis. 3. Albuterol 2 puffs inhaled q.4 hours p.r.n. shortness of breath. 4. Nitroglycerin 0.4 mg SL q.5 minutes p.r.n. chest pain. 5. Ipratropium nebulizer 0.5 mg inhaled q.6 hours p.r.n. shortness of breath. 6. Hydroxyzine 10 mg p.o. t.i.d. p.r.n. anxiety. 7. Albuterol/ipratropium 1 neb inhaled q.6 hours p.r.n. shortness of breath. 8. Tessalon 100 mg p.o. t.i.d. p.r.n. cough. 9. Symbicort 160/4.5 two puffs inhaled b.i.d. 10. Lantus 25 units subcutaneous q.h.s. 11. Plavix 75 mg p.o. daily. 12. Amlodipine 5 mg p.o. daily. 13. Atenolol 50 mg p.o. b.i.d. 14. Aspirin 81 mg p.o. daily. 15. Allopurinol 100 mg p.o. daily. ALLERGIES: ATIVAN, THORAZINE, COUMADIN, and CODEINE. FAMILY HISTORY: Dad of coronary artery disease. The cause of mom's is unclear. SOCIAL HISTORY: The patient is a former smoker. She lives alone. She indicates that her son Jose Antonio Tomas, phone number [phone], is her healthcare proxy. REVIEW OF SYSTEMS: Review of systems is unobtainable from the patient as communication with a BiPAP in place is difficult and the patient continually falls asleep during my questioning and exam. PHYSICAL EXAMINATION GENERAL: The patient is a well-developed middle-aged female, lying in the bed and sleepy, awakens to light touch and voice, in no acute distress. VITAL SIGNS: Blood pressure 169/93, pulse 80, respirations 12, temp 98.1, O2 sat is 99% on 40% FiO2 with BiPAP. HEENT: Pupils are equal, round, and reactive to light. Extraocular muscles are intact. Oropharynx is not able to be inspected due to the BiPAP being in place. NECK: There is no submandibular, cervical, or supraclavicular adenopathy. Thyroid is not enlarged. No thyroid nodules are noted. PULMONARY: There are bilateral basilar crackles and her breath sounds are diminished in all lung c[place] CARDIAC: Normal S1, S2. Regular rate and rhythm. I do not appreciate any murmurs. There is 1+ bilateral lower extremity pitting edema. ABDOMEN: Bowel sounds are present. Abdomen is soft, nontender, nondistended. MUSCULOSKELETAL: There is no cyanosis or clubbing of the digits. There is full active range of motion of all 4 extremities. SKIN: Warm and dry. There are no rashes. NEURO: Cranial nerves II through XII are grossly intact. Sensation is intact to light touch throughout. Strength is 5/5 and symmetric in both upper and lower extremities bilaterally. PSYCH: The patient is sleepy, but she does awaken to voice and light touch. She is oriented when she is awake. DIAGNOSTIC STUDIES/LAB DATA: WBC 11.2, hemoglobin 11.1, hematocrit 34, platelets 267. ABG 7.28/70/97/28.6. Sodium 128, potassium 3.2, chloride 84, CO2 of 34, BUN 35, creatinine 4.04, glucose 182, lactic acid 1.5, calcium 8.5, bilirubin 0.3, AST 14, ALT 8, alk phos 114. BNP 1955. Albumin 3.6. EKG initially questionable for atrial flutter, though now that her heart rate has slowed, she appears to be in sinus rhythm on telemetry. Chest x-ray appears to have pulmonary vascular congestion. ASSESSMENT AND PLAN: Ms. Tomas is a 56-year-old female with a known history COPD, ESRD, CAD, hypertension, hyperlipidemia, type 2 diabetes, who presents to the emergency room with complaints of shortness of breath and is admitted for acute hypercarbic respiratory failure. 1. Acute hypercarbic respiratory failure. The etiology of this is likely multifactorial. There is likely a component of COPD though she is not wheezing on exam. Her breath sounds are markedly diminished, however. I will go ahead and continue Solu-Medrol 40 mg IV q.12 hours. I am going to hold off on antibiotic therapy at this time despite the patient's white blood cell count being elevated to 11.2. We will continue standing nebs while awake as well as her usual nebulizer/inhaler regimen. I believe that the bigger component of her respiratory failure is the pulmonary edema. It is unclear why the patient developed such significant pulmonary edema. She has been getting her dialysis routinely. She, however, is unable to tell me if she has eaten any salty foods or changed her diet recently. The patient's nephew did state that during her last dialysis appointment they had to take off much more fluid than they usually do. She also has peripheral edema on exam, which is not normal for her. The patient makes very little urine and I do not believe would benefit from Lasix. She has stabilized nicely on the BiPAP, which gives us the luxury of waiting for the morning to alert the dialysis group that she has been admitted and get dialysis performed. The patient will stay on BiPAP for now though could potentially be considered for coming off of this later this morning. 2. End-stage renal disease. The patient is due for dialysis today, Friday. She does have chronic anemia; however, her H and H is stable at baseline. The patient will get her dialysis as scheduled. 3. Coronary artery disease. The patient does not have any complaints of chest pain at this time; however, I will go ahead and check a troponin level. I question if perhaps she may have had a cardiac event leading to the pulmonary edema. Let us see what the troponin shows and make decisions from there. I will go ahead and get a transthoracic echocardiogram to evaluate her ejection fraction. 4. Peripheral arterial disease. The patient has no complaints in her legs at this point. She will be maintained on her usual dose of Plavix. 5. Hypertension. The patient's blood pressure is moderately elevated at this time. We will go ahead and continue her home regimen and monitor her blood pressure for improvement. If it does not improve she will need adjustments in her antihypertensive regimen. 6. Type 2 diabetes. The patient will have fingersticks q.6 hours while n.p.o. , on BiPAP. Once she is eating, we will need to change to a.c. and h.s. She will be continued on her usual dose of Lantus 20 units subcutaneous q.h.s. 7. Chronic obstructive pulmonary disease, as above. There are no signs of exacerbation at this time. She will be maintained on her usual home inhaler regimen. 8. DVT prophylaxis. According to the Adult Thrombosis Prophylaxis Risk Factor Assessment Guide, the patient has a total risk factor score of 3, making her a high risk. She will be on heparin 5000 units subcutaneous q.8 hours. 9. Code status is full and again the patient indicates that her son, Jose Antonio Tomas, is her healthcare proxy. TIME SPENT: Sixty-five minutes were spent admitting this patient. CC: Dr. Atkins; Dr. Henning; Dr. Hodgson* [id number]/[facility] #: [id number] MTDD
--- NOTE | 2017-03-03 08:42 | ECHO ---
Patient: HOMA [facility] Rec#: [id number] : 1960 Date: 03/03/2017 Age: 56y Height: 172.72 cm / 68.0 in Weight: 96.62 kg / 213.0 lbs Sex: F BSA: 2.1 Room#: ICU 1 Admit Date#: 03/03/2017 Type: Inpatient Referring: Raquel Gandara DO Reading: Jevon Patricio MD Group Home Paraprofessional: Soila Trammell,RAMEZCS,RDMS CC: FREDI TAVERA Transthoracic Echocardiogram Indication: Pulmonary edema BP: 156/65 HR: 72 Rhythm: NSR Findings History: CAD, MIs, PCI, DM, ESRD, CHF, HTN, COPD, HTN, HLD Technical Comments: The study quality is fair. Completed 0825 Left Ventricle: The left ventricular chamber size is normal. Mild concentric left ventricular hypertrophy is observed. Global left ventricular wall motion and contractility are within normal limits. There is normal left ventricular systolic function. The estimated ejection fraction is 55-60%. Abnormal left ventricular diastolic function is observed. The patient was unable to perform a Valsalva maneuver. Left Atrium: The left atrium is mildly dilated. Right Ventricle: The right ventricular chamber size and systolic function are within normal limits. The right ventricle wall thickness is mildly increased. Right Atrium: The right atrium is mildly dilated. Aortic Valve: There is no evidence of aortic valve thickening. Systolic excursion of the aortic valve is normal. There is no evidence of aortic regurgitation. There is no evidence of aortic stenosis. Mitral Valve: The mitral valve leaflets appear normal. There is no evidence of mitral regurgitation. There is no evidence of mitral stenosis. Tricuspid Valve: The tricuspid valve leaflets are normal. There is trace tricuspid regurgitation. Unable to estimate the right ventricular systolic pressure. Pulmonic Valve: The pulmonic valve appears normal. There is no evidence of pulmonic regurgitation. Pericardium: There is no significant pericardial effusion. Aorta: The aortic arch is not well visualized. There is no dilation of the aortic root. Pulmonary Artery: The main pulmonary artery appears normal. Venous: The inferior vena cava is dilated. There is less than 50% respiratory change in the inferior vena cava dimension. Contrast: Definity was used to optimize study. A total of 3 ml was used Conclusions Mild concentric left ventricular hypertrophy is observed. The estimated ejection fraction is 55-60%. There is normal left ventricular systolic function. The right ventricular chamber size and systolic function are within normal limits. There is no evidence of aortic regurgitation. There is no evidence of aortic stenosis. There is no evidence of mitral regurgitation. There is trace tricuspid regurgitation. Unable to estimate the right ventricular systolic pressure. There is no significant pericardial effusion. Ill defeiced mass in proximal portion of the ascendin aorta. Measuring 3.2 cm by 1 cm. not clearly attached to aortic valve. CTA of chest or MOSES may be helpful for better visualization Compared to study of 12/08/15, the LV function and valves are the same. The aortic mass is new Measurements Name Value Normal Range RVIDd (AP) 2D 2.3 cm (0.9 - 2.6) RVDdMajor (2D) 3.4 cm (2.2 - 4.4) RAd ISD 4CH 5.4 cm (3.4 - 4.9) RA (A4C)W 4.1 cm (2.9 - 4.6) IVSd (2D) 1.3 cm (0.6 - 1) LVPWd (2D) 1.3 cm (0.6 - 1) LVIDd (2D) 5.3 cm (3.6 - 5.4) LVIDs (2D) 4.4 cm - LV FS (2D) 17 % (25 - 45) Aortic Annulus 2.1 cm (1.4 - 2.6) Ao root diameter (2D) 2.8 cm (2.1 - 3.5) Ascending Ao 2.9 cm (2.1 - 3.4) LA dimension (AP) 2D 3.6 cm (2.3 - 3.8) LAd ISD 4CH 6.2 cm (2.9 - 5.3) LA ISD 4CH W 4.4 cm (2.5 - 4.5) Name Value Normal Range LA ESV SP 4CH (A/L) 69.57 ml - LA ESV SP 2CH (A/L) 87.12 ml - LA ESV BP (A/L) 77.91 ml - LA ESV BP (A/L) index 37 ml/m2 - LA ESV SP 4CH (MOD) 66.46 ml - LA ESV SP 2CH (MOD) 81.79 ml - Name Value Normal Range MV E-wave Vmax 0.8 m/sec - MV deceleration time 160 msec - MV A-wave Vmax 0.6 m/sec - MV E:A ratio 1.3 ratio - LV septal e' Vmax 0.05 m/sec - LV lateral e' Vmax 0.06 m/sec - LV E:e' septal ratio 16 ratio - LV E:e' lateral ratio 13.4 ratio - Name Value Normal Range AV Vmax 1.69 m/sec - AV VTI 36.5 cm - AV peak gradient 10 mmHg - AV mean gradient 4.9 mmHg - LVOT Vmax 0.8 m/sec - LVOT VTI 18 cm - LVOT peak gradient 2.6 mmHg - LVOT mean gradient 1.1 mmHg - Name Value Normal Range RAP 8 mmHg - IVC diameter 2.7 cm - Name Value Normal Range PV Vmax 1 m/sec - PV peak gradient 4 mmHg -
[2017-03-03] MEDS: Mometasone/Formoter 200/5 MDI INH SCH ×2 (09:33→19:26)
[2017-03-03] MEDS: Aspirin EC Low Dose* 81 MG TAB.EC PO SCH (09:43)
[2017-03-03] MEDS: Allopurinol TAB* 100 MG PO SCH (09:43)
[2017-03-03] MEDS: amLODIPine TAB* 5 MG PO SCH (09:43)
[2017-03-03] MEDS ORDERED: Albuterol 2.5 MG/3 ML NEB.SOL* (0.083%) INH PRN (09:43)
[2017-03-03] MEDS: Clopidogrel TAB* 75 MG PO SCH (09:43)
[2017-03-03] MEDS: Atenolol TAB* 50 MG PO SCH ×2 (09:43→21:08)
[2017-03-03] MEDS ORDERED: methylPREDNISolone SOD 40 MG* 1 ML VIAL IV SCH (10:00)
[2017-03-03] MEDS ORDERED: Iodixanol* (CONTRAST) 320 MG/ML 100 ML SDV IV ONE (10:37)
--- NOTE | 2017-03-03 11:42 | RAD ---
INDICATION: Ascending aortic mass on echo. COMPARISON: April 20, 2016 CT pulmonary angiogram. TECHNIQUE: Multidetector CT images were obtained from the lung apices to the upper abdomen with 100 mL Visipaque 320 IV contrast. Pulmonary angiogram protocol. Multiplanar reformation including with maximum intensity projection. REPORT: Small bilateral dependent pleural effusions with associated compressive atelectasis. Mild prominence of the basilar interstitial markings with thickened interlobular septa. Advanced emphysema most marked at the mid to upper lung zones. RIGHT apical bulla measuring up to 4 cm. Normal variant accessory azygos fissure in the medial RIGHT upper lung zone. No suspicious focal pulmonary lesion. Small LEFT pneumothorax visualized posterior medial reference axial images centered at 44 with small air-fluid level. Negative for thoracic lymphadenopathy or mediastinal mass. 0.7 cm short axis diameter RIGHT retrocrural lymph node noted. Mild cardiomegaly and thickened appearing latif of the LEFT ventricle. Minimal pericardial effusion. Normal diameter thoracic aorta with minimal atherosclerotic plaque. The thoracic aorta measures up to 2.8 cm diameter at the sinotubular junction, 3.3 cm diameter at the ascending segment at the level of the main pulmonary artery, 2.6 cm at the proximal arch, 2.9 cm at the distal arch, and 2.1 cm at the distal descending segment. Negative for dissection of the thoracic aorta. Unremarkable pulmonary arteries through the segmental and subsegmental levels. Limited images through the upper abdomen are remarkable for prior cholecystectomy and a few low suspicion well-circumscribed hypodense lesions of the normal sized spleen likely representing cysts or hemangiomas. No suspicious thoracic osseous lesions evident. Small Schmorl node endplate herniations with secondary calcification/ossification noted. IMPRESSION: 1. Small pleural effusions are likely secondary to mild interstitial pulmonary edema. 2. Normal diameter thoracic aorta with only minimal atherosclerotic plaque. No evidence for dissection or mass within or impressing upon the thoracic aorta. 3. Coronary artery calcifications. 4. Mild cardiomegaly with suggestion of LEFT ventricular hypertrophy. 5. Minimal pericardial effusion.
[2017-03-03] MEDS ORDERED: Albuterol HFA INHALER* 8 gm MDI INH PRN (11:55)
[2017-03-03] MEDS: Sevelamer TAB* 800 MG PO SCH ×2 (13:45→18:11)
[2017-03-03] MEDS: Divalproex ER TAB(*) 500 MG PO SCH ×3 (13:45→21:07)
[2017-03-03] MEDS: Isosorbide Mononitrate ER TAB* 30 MG PO SCH (13:45)
[2017-03-03] MEDS: Vitamin B Complex TAB PO SCH ×2 (13:45→13:50)
[2017-03-03] MEDS ORDERED: Docusate CAP* 100 MG ONE (14:48)
[2017-03-03] MEDS: Docusate CAP* 100 MG PO SCH (14:50)
--- NOTE | 2017-03-03 16:36 | PN ---
Hospitalist Progress Note HOSPITALIST ADDENDUM Patient seen and examined at bedside. Feeling better, with less dyspnea. Released from BiPAP with no issues, tolerating nasal canula well. Denies CP or palpitations. Echo reviewed - showed possible ascending aorta mass. CTA chest was negative for intraaortic mass. D/w Cardiology (Dr. Patricio) - thinks CTA more sensitive than echo, and does not recommend transesophageal echocardiogram. Will dialyze today and monitor fluid status. Although she describes compliance with medications and diet, chemical dependency therapist (Angel Narayan) has noted progressive decline on her condition over the past month and suspects possible non- compliance as playing a role. CTA also showed incidental finding of small pneumothorax. Patient is asymptomatic at this time. D/w Surgery - plan to repeat CxR in AM and they'll consult.
[2017-03-03] MEDS ORDERED: Insulin GLARGINE(*) 1 UNITS UNIT SUBCUT SCH (21:00)
[2017-03-04] MEDS: methylPREDNISolone SOD 40 MG* 1 ML VIAL IV SCH (05:27)
[2017-03-04] MEDS: Heparin VIAL(*) 5000 UNITS/ML VIAL (FIVE THOUSAND) SUBCUT SCH ×2 (05:32→13:56)
[2017-03-04 06:11] LABS: Hematocrit 32 % (35-47); Hemoglobin 10.9 g/dl (12.0-16.0); Mean Corpuscular HGB Conc 34 g/dl (31-36); Mean Corpuscular Hemoglobin 33 pg (27-31); Mean Corpuscular Volume 96 fL (80-97); Mean Platelet Volume 7 um3 (7.4-10.4); Red Blood Count 3.36 10^6/ul (4.0-5.4); Red Cell Distribution Width 17 % (10.5-15); White Blood Count 9.1 10^3/ul (3.5-10.8)
[2017-03-04 06:23] LABS: BUN/Creatinine Ratio 7.8 (8-20); Calcium 8.2 mg/dL (8.6-10.3); EGFR African American 17.6 (>60); EGFR Non-African American 13.7 (>60); Potassium 3.9 mmol/L (3.5-5.0)
[2017-03-04] MEDS: Insulin LISPRO* 1 UNITS UNIT SUBCUT SCH ×4 (09:11→21:15)
[2017-03-04] MEDS: Sevelamer TAB* 800 MG PO SCH ×3 (09:11→16:42)
[2017-03-04] MEDS: Allopurinol TAB* 100 MG PO SCH (09:12)
[2017-03-04] MEDS: amLODIPine TAB* 5 MG PO SCH (09:12)
[2017-03-04] MEDS: Mometasone/Formoter 200/5 MDI INH SCH ×2 (09:12→20:45)
[2017-03-04] MEDS: Doxazosin TAB* 2 MG PO SCH (09:12)
[2017-03-04] MEDS: Clopidogrel TAB* 75 MG PO SCH (09:12)
[2017-03-04] MEDS: Atenolol TAB* 50 MG PO SCH ×2 (09:12→21:17)
[2017-03-04] MEDS: Aspirin EC Low Dose* 81 MG TAB.EC PO SCH (09:12)
[2017-03-04] MEDS: Vitamin B Complex TAB PO SCH (09:13)
[2017-03-04] MEDS: Isosorbide Mononitrate ER TAB* 30 MG PO SCH (09:13)
[2017-03-04] MEDS: risperiDONE TAB* 2 MG PO SCH (09:13)
[2017-03-04] MEDS: Divalproex ER TAB(*) 500 MG PO SCH ×3 (09:13→21:17)
[2017-03-04] MEDS: Docusate CAP* 100 MG PO SCH (09:13)
[2017-03-04] MEDS: Insulin GLARGINE(*) 1 UNITS UNIT SUBCUT SCH (09:13)
--- NOTE | 2017-03-04 10:37 | RAD ---
INDICATION: Xniatzqcgxrb-[id number] COMPARISON: Chest x-ray March 03, 2017 TECHNIQUE: PA and lateral dual-energy views were obtained. FINDINGS: Bones/Soft Tissues: There are no acute bony findings. Cardiomediastinal: The cardiomediastinal silhouette is normal. Lungs: There are no infiltrates. There is no plain radiographic evidence of pneumothorax Pleura: There are no significant pleural effusions. Other: None IMPRESSION: NO PLAIN RADIOGRAPHIC EVIDENCE OF PNEUMOTHORAX.
--- NOTE | 2017-03-04 14:22 | PN ---
Subjective Date of Service: 03/04/17 Interval History: HOSPITALIST PROGRESS NOTE Patient seen and examined at bedside. She feels better today. Had a good night of sleep, breathing is easy, denies CP or palpitations. Family History: Unchanged from Admission Social History: Unchanged from Admission Past Medical History: Unchanged from Admission Objective Active Medications: Albuterol (Ventolin 2.5 Mg/3 Ml Neb.May*) 2.5 mg INH Q6H PRN PRN Reason: new order Albuterol (Ventolin Hfa Inhaler*) 2 puff INH Q4HR PRN PRN Reason: SOB/WHEEZING Allopurinol (Zyloprim Tab*) 100 mg PO DAILY [facility] Last Admin: 03/04/17 09:12 Dose: 100 mg Amlodipine Besylate (Norvasc Tab*) 5 mg PO DAILY [facility] Last Admin: 03/04/17 09:12 Dose: 5 mg Aspirin (Aspirin Ec Low Dose*) 81 mg PO DAILY [facility] Last Admin: 03/04/17 09:12 Dose: 81 mg Atenolol (Tenormin Tab*) 50 mg PO BID [facility] Last Admin: 03/04/17 09:12 Dose: 50 mg Benzonatate (Tessalon Cap*) 100 mg PO TID PRN PRN Reason: COUGH Clopidogrel Bisulfate (Plavix Tab*) 75 mg PO DAILY [facility] Last Admin: 03/04/17 09:12 Dose: 75 mg Dextrose (D50w Syringe 50 Ml*) 12.5 gm IV PUSH .FOR FS < 60 - SS PRN PRN Reason: FS < 60 Divalproex Sodium (Depakote Er Tab(*)) 500 mg PO TID [facility] Last Admin: 03/04/17 13:56 Dose: 500 mg Docusate Sodium (Colace Cap*) 100 mg PO DAILY [facility] Last Admin: 03/04/17 09:13 Dose: 100 mg Doxazosin Mesylate (Cardura Tab*) 4 mg PO DAILY [facility] Last Admin: 03/04/17 09:12 Dose: 4 mg Heparin Sodium (Porcine) (Heparin Vial(*)) 5,000 units SUBCUT Q8HR [facility] Last Admin: 03/04/17 13:56 Dose: 5,000 units Hydroxyzine HCl (Atarax Tab*) 10 mg PO TID PRN PRN Reason: ANXIETY Insulin Glargine (Lantus(*)) 10 units SUBCUT QAM [facility] Last Admin: 03/04/17 09:13 Dose: 10 units Insulin Human Lispro (Humalog*) 0 units SUBCUT ACHS [facility] PRN Reason: Protocol Last Admin: 03/04/17 11:51 Dose: 3 units Ipratropium [place] (Atrovent 0.5 Mg Neb.May*) 0.5 mg INH Q6H PRN PRN Reason: SOB/WHEEZING Isosorbide Mononitrate (Imdur Er Tab*) 30 mg PO DAILY [facility] Last Admin: 03/04/17 09:13 Dose: 30 mg Methylprednisolone Sodium Succinate (Solu-Medrol 40 Mg) 40 mg IV Q12H [facility] Last Admin: 03/04/17 05:27 Dose: 40 mg Mometasone Furoate/Formoterol Fumar (Dulera 200/5 Mdi*) 2 puff INH BID [facility] PRN Reason: Protocol Last Admin: 03/04/17 09:12 Dose: 2 inh Polyethylene Glycol/Electrolytes (Miralax*) 17 gm PO DAILY PRN PRN Reason: CONSTIPATION Last Admin: 03/04/17 13:56 Dose: 17 gm Risperidone (Risperdal*) 4 mg PO DAILY [facility] Last Admin: 03/04/17 09:13 Dose: 4 mg Sevelamer Carbonate (Renvela Tab*) 800 mg PO TID WITH MEALS [facility] Last Admin: 03/04/17 11:52 Dose: 800 mg Vitamin B Complex/Vitamin E (Complex B-100*) 1 tab PO DAILY [facility] Last Admin: 03/04/17 09:13 Dose: 1 tab Vital Signs 03/04/17 03/04/17 03/04/17 07:01 08:00 10:58 Temperature 97.3 F 97.6 F Pulse Rate 65 67 74 Respiratory 18 16 16 Rate Blood Pressure 146/67 153/72 150/70 (mmHg) O2 Sat by Pulse 99 95 97 Oximetry Oxygen Devices in Use Now: Nasal Cannula Appearance: Pleasant lady lying in bed in NAD. Eyes: No Scleral Icterus Ears/Nose/Mouth/Throat: Mucous Membranes Moist Neck: Trachea Midline Respiratory: Symmetrical Chest Expansion and Respiratory Effort, Clear to Auscultation Cardiovascular: - - Normal S1 and S2, irregularly irregular Abdominal: NL Sounds; No Tenderness; No Distention Extremities: - - Mild bilateral LE edema Skin: No Rash or Ulcers Neurological: Alert and Oriented x 3, NL Muscle Strength and Tone Lines/Tubes/Other Access: Clean, Dry and Intact Peripheral IV Nutrition: Taking PO's Result Diagrams: 03/04/17 05:55 03/04/17 05:55 Assess/Plan/Problems-Billing Assessment: Mrs. Tomas is a 56yo F with PMH of ESRD on HD, CAD s/p stents, PAD, s/p left femoral stent, HTN, HLD, type 2 DM, gout, schizoaffective disorder, COPD, who presented to ED in acute respiratory failure secondary to pulmonary edema. - Patient Problems (1) Atrial fibrillation Comment: - Patient now in rate controlled Afib. - She is asymptomatic and denies prior h/o Afib. - Rate is controlled as she's on Atenolol for HTN. - D/w Cardiology - recommended anticoagulation, rate control, and f/u Dr. Hodgson as outpatient. - Allergic to Warfarin, but doesn't recall reaction. [id number] is 5 - will start heparin drip until we find an anticoagulation option. (2) Acute pulmonary edema Comment: - Suspect secondary to non-compliance. - Although patient states she's compliant with diet and fluid restrictions, her family gives different information. As per niece, patient drinks a lot of regular soda and when questioned, patient confirms she drinks a lot of Yesenia Eufemia. - As per SW, VNS also reported sometimes she's not compliant with her med box. - Responding well to HD. (3) Acute hypercapnic respiratory failure Comment: - Improved, MS at baseline. - D/c BiPAP and continue supplemental O2. (4) COPD (chronic obstructive pulmonary disease) Comment: - Appear to be stable. - I believe her respiratory failure was secondary to pulmonary edema. - Taper steroids, continue bronchodilators. (5) ESRD (end stage renal disease) Comment: - Continue HD on MWF. (6) CAD (coronary artery disease) Comment: - Stable. - Continue Aspirin, Plavix, Imdur, (7) HTN (hypertension) Comment: - Controlled. - Continue Atenolol, Doxazosin, Amlodipine. (8) Type 2 diabetes mellitus Comment: - Check A1c. - Continue Lantus and Lispro SS. (9) Pneumothorax Comment: - CT showed a small pneumothorax. - Patient is asymptomatic. - F/u CxR negative for pneumo. (10) Schizoaffective disorder Comment: - Continue Divalproex and Risperidone. (11) DVT prophylaxis Comment: - Heparin drip. (12) Full code status Status and Disposition: Inpatient. Niece (Rosemary) called and left a msg asking her to call me back. 45 minutes patient care, > half face to face with patient and coordination of care.
[2017-03-04 14:40] LABS: Magnesium 1.9 mg/dL (1.9-2.7)
[2017-03-04] MEDS: Heparin VIAL(*) 5000 UNITS/ML VIAL (FIVE THOUSAND) IV SCH (15:48)
[2017-03-04] MEDS: Heparin DRIP 25,000 UNITS(*) 25,000 UNITS/500 ML BAG IVPB SCH (15:49)
[2017-03-04] MEDS ORDERED: Acetaminophen TAB* 325 MG PO PRN (21:14)
[2017-03-04] MEDS ORDERED: CMCS - Melatonin (NF) 3 MG TAB PO PRN (21:14)
[2017-03-05 02:19] LABS: BUN/Creatinine Ratio 12.3 (8-20); Calcium 8.2 mg/dL (8.6-10.3); EGFR African American 16.3 (>60); EGFR Non-African American 12.7 (>60); Potassium 3.6 mmol/L (3.5-5.0)
[2017-03-05] MEDS: Mometasone/Formoter 200/5 MDI INH SCH ×2 (07:57→19:55)
[2017-03-05] MEDS ORDERED: predniSONE TAB* 20 MG PO SCH (08:30)
[2017-03-05] MEDS: Insulin LISPRO* 1 UNITS UNIT SUBCUT SCH ×4 (08:30→22:18)
[2017-03-05] MEDS: Divalproex ER TAB(*) 500 MG PO SCH ×3 (08:44→22:18)
[2017-03-05] MEDS: Atenolol TAB* 50 MG PO SCH ×2 (08:44→18:37)
[2017-03-05] MEDS: Doxazosin TAB* 2 MG PO SCH (08:45)
[2017-03-05] MEDS: Sevelamer TAB* 800 MG PO SCH ×3 (08:45→18:35)
[2017-03-05] MEDS: Clopidogrel TAB* 75 MG PO SCH (08:45)
[2017-03-05] MEDS: Isosorbide Mononitrate ER TAB* 30 MG PO SCH (08:45)
[2017-03-05] MEDS: Aspirin EC Low Dose* 81 MG TAB.EC PO SCH (08:46)
[2017-03-05] MEDS: Allopurinol TAB* 100 MG PO SCH (08:46)
[2017-03-05] MEDS: risperiDONE TAB* 2 MG PO SCH (08:46)
[2017-03-05] MEDS: amLODIPine TAB* 5 MG PO SCH (08:46)
[2017-03-05] MEDS: Vitamin B Complex TAB PO SCH (08:46)
[2017-03-05] MEDS: Insulin GLARGINE(*) 1 UNITS UNIT SUBCUT SCH (08:50)
[2017-03-05] MEDS: Docusate CAP* 100 MG PO SCH (08:51)
--- NOTE | 2017-03-05 15:00 | PN ---
Subjective Date of Service: 03/05/17 Interval History: HOSPITALIST PROGRESS NOTE Patient seen and examined at bedside. She feels a little better today. Still has dyspnea with exertion, but feels well at rest. Denies chest pain or palpitations. Family History: Unchanged from Admission Social History: Unchanged from Admission Past Medical History: Unchanged from Admission Objective Active Medications: Acetaminophen (Tylenol Tab*) 650 mg PO Q6H PRN PRN Reason: FEVER/PAIN Last Admin: 03/05/17 00:49 Dose: 650 mg Albuterol (Ventolin 2.5 Mg/3 Ml Neb.May*) 2.5 mg INH Q6H PRN PRN Reason: new order Albuterol (Ventolin Hfa Inhaler*) 2 puff INH Q4HR PRN PRN Reason: SOB/WHEEZING Allopurinol (Zyloprim Tab*) 100 mg PO DAILY [facility] Last Admin: 03/05/17 08:46 Dose: 100 mg Amlodipine Besylate (Norvasc Tab*) 5 mg PO DAILY [facility] Last Admin: 03/05/17 08:46 Dose: 5 mg Aspirin (Aspirin Ec Low Dose*) 81 mg PO DAILY [facility] Last Admin: 03/05/17 08:46 Dose: 81 mg Atenolol (Tenormin Tab*) 100 mg PO QAM [facility] Atenolol (Tenormin Tab*) 50 mg PO QPM [facility] Benzonatate (Tessalon Cap*) 100 mg PO TID PRN PRN Reason: COUGH Clopidogrel Bisulfate (Plavix Tab*) 75 mg PO DAILY [facility] Last Admin: 03/05/17 08:45 Dose: 75 mg Dextrose (D50w Syringe 50 Ml*) 12.5 gm IV PUSH .FOR FS < 60 - SS PRN PRN Reason: FS < 60 Divalproex Sodium (Depakote Er Tab(*)) 500 mg PO TID [facility] Last Admin: 03/05/17 08:44 Dose: 500 mg Docusate Sodium (Colace Cap*) 100 mg PO DAILY [facility] Last Admin: 03/05/17 08:51 Dose: 100 mg Doxazosin Mesylate (Cardura Tab*) 4 mg PO DAILY [facility] Last Admin: 03/05/17 08:45 Dose: 4 mg Heparin Sodium (Porcine) (Heparin Vial(*)) 0 units IV .PER PROTOCOL [facility] PRN Reason: Protocol Last Admin: 03/04/17 15:48 Dose: 5,400 units Hydroxyzine HCl (Atarax Tab*) 10 mg PO TID PRN PRN Reason: ANXIETY Last Admin: 03/04/17 21:17 Dose: 10 mg Heparin Sodium/Dextrose (Heparin Drip 25,000 Units(*)) 25,000 units in 500 mls @ 0 mls/hr IVPB .PER RATE NISA; Per Protocol PRN Reason: Protocol Last Admin: 03/04/17 15:49 Dose: 20 mls/hr Insulin Glargine (Lantus(*)) 10 units SUBCUT QAM [facility] Last Admin: 03/05/17 08:50 Dose: 10 units Insulin Human Lispro (Humalog*) 0 units SUBCUT ACHS [facility] PRN Reason: Protocol Last Admin: 03/05/17 12:08 Dose: 3 units Ipratropium [place] (Atrovent 0.5 Mg Neb.May*) 0.5 mg INH Q6H PRN PRN Reason: SOB/WHEEZING Isosorbide Mononitrate (Imdur Er Tab*) 30 mg PO DAILY [facility] Last Admin: 03/05/17 08:45 Dose: 30 mg Melatonin (Melatonin (Nf)) 3 mg PO BEDTIME PRN; Protocol PRN Reason: Sleep Last Admin: 03/05/17 00:49 Dose: 3 mg Mometasone Furoate/Formoterol Fumar (Dulera 200/5 Mdi*) 2 puff INH BID [facility] PRN Reason: Protocol Last Admin: 03/05/17 07:57 Dose: 2 puff Polyethylene Glycol/Electrolytes (Miralax*) 17 gm PO DAILY PRN PRN Reason: CONSTIPATION Last Admin: 03/04/17 13:56 Dose: 17 gm Prednisone (Deltasone Tab*) 30 mg PO DAILY WITH MEAL [facility] Risperidone (Risperdal*) 4 mg PO DAILY [facility] Last Admin: 03/05/17 08:46 Dose: 4 mg Sevelamer Carbonate (Renvela Tab*) 800 mg PO TID WITH MEALS [facility] Last Admin: 03/05/17 12:08 Dose: 800 mg Vitamin B Complex/Vitamin E (Complex B-100*) 1 tab PO DAILY [facility] Last Admin: 03/05/17 08:46 Dose: 1 tab Vital Signs 03/05/17 03/05/17 03/05/17 07:24 07:55 07:59 Temperature 97.8 F Pulse Rate 64 67 Respiratory 12 16 12 Rate Blood Pressure 135/53 (mmHg) O2 Sat by Pulse 99 98 Oximetry Oxygen Devices in Use Now: Nasal Cannula Appearance: Pleasant lady lying in bed in NAD. Eyes: No Scleral Icterus Ears/Nose/Mouth/Throat: Mucous Membranes Moist Neck: Trachea Midline Respiratory: Symmetrical Chest Expansion and Respiratory Effort, Clear to Auscultation Cardiovascular: RRR - Normal S1 and S2 Abdominal: NL Sounds; No Tenderness; No Distention Extremities: - - Mild bilateral LE edema Neurological: Alert and Oriented x 3, NL Muscle Strength and Tone Lines/Tubes/Other Access: Clean, Dry and Intact Peripheral IV Nutrition: Taking PO's Result Diagrams: 03/04/17 05:55 03/05/17 01:54 Assess/Plan/Problems-Billing Assessment: Mrs. Tomas is a 56yo F with PMH of ESRD on HD, CAD s/p stents, PAD, s/p left femoral stent, HTN, HLD, type 2 DM, gout, schizoaffective disorder, COPD, who presented to ED in acute respiratory failure secondary to pulmonary edema. - Patient Problems (1) Atrial fibrillation Comment: - Converted to NSR. - She is asymptomatic and denies prior h/o Afib. - Cardiology input appreciated - will increase Atenolol to 100mg AM and 50mg PM. - Allergic to Warfarin, but doesn't recall reaction and this was >20 years ago. [id number] is 5 - continue heparin drip for now. Will discuss risks and benefits of Eliquis with patient and family, but if she doesn't go to a supervised setting, the risk of non-compliance is too high. (2) Acute pulmonary edema Comment: - Suspect secondary to non-compliance. - Although patient states she's compliant with diet and fluid restrictions, her family gives different information. As per niece, patient drinks a lot of regular soda and when questioned, patient confirms she drinks a lot of Yesenia Eufemia. - As per SW, VNS also reported sometimes she's not compliant with her med box. - Responding well to HD. (3) Acute hypercapnic respiratory failure Comment: - Improved, MS at baseline. - D/c BiPAP and continue supplemental O2. (4) COPD (chronic obstructive pulmonary disease) Comment: - Appear to be stable. - I believe her respiratory failure was secondary to pulmonary edema. - Taper steroids, continue bronchodilators. (5) ESRD (end stage renal disease) Comment: - Continue HD on MWF. (6) CAD (coronary artery disease) Comment: - Stable. - Continue Aspirin, Plavix, Imdur, (7) HTN (hypertension) Comment: - Controlled. - Continue Atenolol, Doxazosin, Amlodipine. (8) Type 2 diabetes mellitus Comment: - A1c is 6. - Continue Lantus and Lispro SS. (9) Pneumothorax Comment: - CT showed a small pneumothorax. - Patient is asymptomatic. - F/u CxR negative for pneumo. (10) Schizoaffective disorder Comment: - Continue Divalproex and Risperidone. (11) MELITON (obstructive sleep apnea) Comment: - Not compliant with CPAP at home. - Will request Pulmonary consult to try and optimize CPAP. (12) DVT prophylaxis Comment: - Heparin drip. (13) Full code status Status and Disposition: Inpatient.
[2017-03-05] MEDS ORDERED: Atenolol TAB* 50 MG PO SCH (18:00)
--- NOTE | 2017-03-05 22:08 | CONS ---
CARDIOLOGY CONSULTATION: DATE OF CONSULT: 03/05/2017 REASON FOR THE CONSULT: The patient presents with rapid atrial fibrillation and significant shortness of breath, assess cardiac status. HISTORY OF PRESENT ILLNESS: The patient is a pleasant 56-year-old female known to me for her underlying coronary artery disease for which I had watched her as an outpatient. She now states that she was at home and was not using her oxygen and found the patient becoming progressively short of breath on . She was brought to the emergency room by the ambulance and had BiPAP therapy and was feeling much better and breathing much better. Initial BNP was found to be 1957 and a chest x-ray reportedly commented on the presence of prominent central pulmonary vessels in interstitium that was felt to be perhaps compatible with congestive heart failure. Of note, given her morbid obesity, it is very difficult to say whether or not this was just under-penetrated in general when I look at the film. Repeat chest x-ray done 2 days later showed no infiltrates and no evidence of pneumothorax and no significant pleural effusion. Of note, she had had a CTA of the chest performed, but when an echocardiogram raised the question of a mass in the ascending aorta that was found to be negative with no such mass. It commented on small pleural effusions and some associated compressive atelectasis and a question of mild prominence of the basilar interstitial markings with thickened interlobular septae. Advanced emphysema was marked in the mid to upper lung cedillo. A right apical bullae was noted as well. There was question of a small left pneumothorax. The subsequent chest x-ray did not find that present. Her initial EKG was found to be atrial fibrillation with a rapid ventricular response in the 140s. The troponin level was found not to be elevated. She had a transthoracic echocardiogram performed and interpreted by Dr. Patricio, which was found to have mild concentric left ventricular hypertrophy with normal contractility. Abnormal diastolic function was quoted, although we do not what grade. There was mild left atrial enlargement seen. There was no significant valvular disease. The comment was about the question of a ill- defined mass in the proximal portion of the ascending aorta which the CT scan did not find. Now, when I see the patient, she is back in sinus rhythm with PACs noted on her rhythm strips. His past cardiac history includes placement of a bare metal stent for an 80% ulcerated proximal circumflex lesion in 2014 at [facility] by Dr. Louis. There was no other significant disease elsewhere and her ejection fraction was 55% at that time. Her cardiac risk factors include a history of end-stage renal insufficiency, hyperlipidemia, a reported history of hypertension, type 2 diabetes insulin- dependent, and she is a former smoker, but currently denies smoking. PAST MEDICAL HISTORY: Hyperlipidemia, obesity, obstructive sleep apnea, gout, end- stage renal disease, schizoaffective disorder, chronic obstructive lung disease, type 2 diabetes, and coronary artery disease. CURRENT MEDICATIONS: Include: 1. MiraLAX 17 g daily p.r.n. for constipation. 2. Kayexalate 15 g p.o. daily p.r.n. for high potassium. 3. Albuterol 2 puffs inhaled q.4 hours p.r.n. for shortness of breath. 4. Nitroglycerin p.r.n. for chest discomfort. 5. Ipratropium nebulizer 0.5 mg inhaled every 6 hours for shortness of breath. 6. Hydroxyzine 10 mg t.i.d. p.r.n. for anxiety. 7. Albuterol/ipratropium 1 inhaler q.6 hours p.r.n. for shortness of breath. 8. Tessalon for cough. 9. Symbicort 160/4.5 two puffs inhaled b.i.d. 10. Lantus 25 units subcu q.h.s. 11. Clopidogrel 75 mg daily. 12. Amlodipine 5 mg daily. 13. Atenolol 50 mg b.i.d. according to the Hospitalist form, although she is not necessarily convinced that she was taking that way at home. 14. Aspirin 81 mg a day. 15. Allopurinol 100 mg daily. ALLERGIES: To ATIVAN, THORAZINE, COUMADIN and CODEINE. FAMILY HISTORY: Father has a history of significant coronary artery disease. SOCIAL HISTORY: She is a former smoker. She lives alone at home. She does not abuse illicit drugs. REVIEW OF SYSTEMS: As per the Hospitalist H and P with no additional findings. PHYSICAL EXAMINATION: When I see her, reveals an obese female in no acute distress. Vital signs reveal a blood pressure 135/53 with a pulse in the 70s with extrasystoles appreciated, respirations are 13, O2 saturation 99% on 2 L. Neck is supple. It is impossible to assess for increased JVP as she has a very thick neck. I do not appreciate any bruits. Carotid upstroke is normal. Conjunctivae are pink. Sclerae clear. Lungs reveal no accessory muscle usage. There is marked virtually absent breath sounds. There were no active rales, rhonchi, or wheezes appreciated. Heart reveals no visible heaves. No palpable heaves or thrills. Heart sounds are distant in nature. Extrasystoles are appreciated. No significant systolic or diastolic murmur. Abdomen is morbidly obese. Extremities are heavy in nature bilaterally, but there is no alyssa pitting edema noted. Neuro: The patient alert, oriented with normal mentation. Musculoskeletal: The patient moves all extremities appropriate. Psychological: The patient with fairly normal affect. LABORATORY DATA: Laboratory [place] [address] with hemoglobin and hematocrit 11.1/34, platelet count of 267,000. The admitting blood work showed a sodium of 128, potassium 3.2, chloride 84, bicarb 34, BUN and creatinine of 35 and 4.04. Troponin was 0.03. Alk phos was 114, SGOT 14, SGPT 8, lactic acid was 1.5. Repeat BUN and creatinine on today is 45 and 3.67. Potassium is 3.6, sodium is 124. Electrocardiogram from admission revealed probable atrial flutter with 2 to 1 block at a rate of 142. Followup EKG on 03/04/17, time 1338, revealed probable atrial fibrillation with controlled rate at 73. There were no acute ST-T wave changes seen. Echocardiogram is as described above. ASSESSMENT: Ms. Tomas presents now with probable atrial flutter with rapid ventricular response that by now has converted back to sinus rhythm with PACs. Ideally, aggressive beta-nicholas therapy should be pursued and currently she is on 50 mg b.i.d. I will consider increasing her to 100 mg in the morning and 50 mg in the evening tomorrow if she remains stable from a blood pressure standpoint. More important than of this is her underlying risk factors for this atrial arrhythmia, which are sleep apnea for which she currently does not take any therapy at night because she states that no device works. Also, her morbid obesity set her up with Pickwickian syndrome and CO2 retention. Unless these factors are addressed, she will continue to have this problem with atrial arrhythmias. I see no evidence of an acute coronary syndrome from underlying coronary artery disease. Reportedly, it was stated that she had a stent placed in her left groin area. I need to find exactly where that information came from as I do not have that available. We will have to see whether or not that was present in some other report. For now, I would try to utilize beta-nicholas therapy advancing as tolerates in order to control the atrial arrhythmias. Obviously, a stronger agent could be attempted although with renal insufficiency our choices are very limited at best. Amiodarone may be the only option if we cannot control this. With regard to anticoagulation, Coumadin would be the the safest drug given her renal status (Eliquis also has been used reportedly in hemodialysis patients at 5 mg BID or 2.5 mg BID if also wt. <60kg or 80 yo or greater). Unfortunately, she had some ill effect to Coumadin, which has not been well defined. For now, if we can avoid it, we may need to proceed with that. Thank you very much for having asked me to see the patient and I will follow her with you. CC: Fe Atkins MD; Emir Henning MD* [id number]/[facility] #: [id number] MTDD
--- NOTE | 2017-03-06 00:15 | CONS ---
PULMONARY CONSULTATION REPORT: DATE OF CONSULT: 03/05/17 CONSULTATION REQUESTED BY: Dr. Velazquez. REASON FOR CONSULTATION: Evaluation of shortness of breath and sleep apnea. HISTORY OF PRESENT ILLNESS: The patient is a 56-year-old -Cym[place] female known to me from prior inpatient and outpatient evaluations. The patient with multiple comorbidities and recurrent hospitalizations. The patient 's history includes but not limited to coronary artery disease; peripheral vascular disease; end-stage renal disease, on hemodialysis; hypertension; hyperlipidemia; type 2 diabetes; emphysema. The patient has chronic dyspnea on exertion with exertion. The patient was brought in to the emergency room for evaluation of worsening shortness of breath. The patient reports gradually worsening dyspnea on exertion with exertion which became worse to the point that she could not catch her breath. The patient with possible noncompliance with diet and medications. The patient noncompliant with her BiPAP usage. The patient uses nebulizers at home. The patient could not be comfortable with BiPAP as prescribed at night and has not been using it regularly. The patient denies fevers, chills, cough, or sputum production. The patient denies chest pain, palpitations, or dizziness. Further evaluation in the emergency room included a CT scan of the chest, which was suggestive of bilateral small pleural effusion, interstitial thickening likely secondary to fluid overload. The patient with no significant mediastinal or hilar adenopathy. I personally reviewed CT scan of the chest results. The patient also with evidence of small left-sided pneumothorax with possible air-fluid levels. The patient also with significant emphysematous changes and bullae. The patient reports slight improvement in her breathing since admission. The patient also reports that she has difficulty keeping her oxygen cannula on and she uses oxygen with exertion. She has been requesting an OxyMask to be used with her portable oxygen. The patient reports difficulty tolerating her BiPAP at night. She has not been compliant with the BiPAP usage. PAST MEDICAL HISTORY: 1. ESRD. 2. CAD. 3. Peripheral artery disease. 4. Hypertension. 5. Hyperlipidemia. 6. Type 2 diabetes. 7. Gout. 8. Schizoaffective disorder, bipolar type. 9. Significant emphysema, on O2. PAST SURGICAL HISTORY: Dialysis catheter placement. MEDICATIONS: 1. MiraLAX. 2. Kayexalate. 3. Albuterol. 4. Nitroglycerin. 5. Ipratropium. 6. Hydroxyzine. 7. DuoNeb. 8. Tessalon. 9. Symbicort . 10. Lantus. 11. Plavix. 12. Amlodipine. 13. Atenolol. 14. Aspirin. 15. Allopurinol. ALLERGIES: ATIVAN, THORAZINE, COUMADIN, CODEINE. FAMILY HISTORY: Coronary artery disease in father. SOCIAL HISTORY: Former smoker, denied drug abuse. She lives alone at home. REVIEW OF SYSTEMS: All 14 systems are reviewed and as per HPI. PHYSICAL EXAM: The patient in bed, in no apparent distress, responds to questions appropriately, not using accessory muscles of respiration. Vital Signs: Temperature 97.6, heart rate 64 beats per minute, respiratory rate 14 per minute, O2 sat 98% on 2 L, blood pressure 135/53. HEENT: Pupils equal, reactive to light. Mucous membranes moist. Neck: No JVD nor accessory muscle usage. Respiratory: Good air entry bilaterally. No wheezing on auscultation. Decreased breath sounds at bases bilaterally. Cardiovascular: S1, S2 present. Regular. Musculoskeletal: Lower extremity edema bilaterally, 1+. Normal range of motion. No cyanosis or clubbing. Skin: Warm and dry. No rashes. Neuro: No focal deficits. DIAGNOSTIC STUDIES/LABORATORY WORKUP: WBC count 9.1, hemoglobin 10.9, hematocrit 32, platelet count 213. Blood gas analysis showed pH of 7.28, PCO2 of 70, PO2 of 97, bicarb of 28.6 on 50% FiO2, and BiPAP of 14.6. Sodium 124, potassium 3.6, chloride 89, bicarb 29, BUN 45, creatinine 3.67, calcium 8.2. CT scan of chest as described above in HPI. IMPRESSION AND RECOMMENDATIONS: 56-year-old female with multiple comorbidities ; end-stage renal disease, on hemodialysis; cardiomegaly; significant emphysema ; and chronic obstructive pulmonary disease admitted with worsening shortness of breath secondary to fluid overload, improved with diuresis and dialysis likely secondary to noncompliance with diet and medications. The patient also with significant emphysema and hypoxemia, not compliant with her inhalers and oxygen as prescribed. The patient also not compliant with BiPAP therapy as prescribed for her sleep apnea. She reports discomfort with mask. She is edentulous and would only fit with a full face mask. The patient reports difficulty tolerating the pressure. Will schedule the patient for repeat BiPAP titration to evaluate her concerns with tolerance. This will be done as an outpatient basis. She will need an OxyMask to use with her portable oxygen which she is not using. Pt had small apical PTX on left side as seen on CT chest, no intervention as per surgery. Will rpt CXR today for f/u Pt to c/w BiPAP in the hospital. Rest of management as per primary team. Thank you for allowing me to participate in the care of your patient. Will follow up with you. [id number]/[facility] #: [id number] SHERIE
[2017-03-06] MEDS: Heparin DRIP 25,000 UNITS(*) 25,000 UNITS/500 ML BAG IVPB SCH (04:15)
[2017-03-06] MEDS: Heparin VIAL(*) 5000 UNITS/ML VIAL (FIVE THOUSAND) IV SCH (06:24)
[2017-03-06] MEDS: Mometasone/Formoter 200/5 MDI INH SCH ×2 (07:56→20:33)
[2017-03-06] MEDS: Insulin LISPRO* 1 UNITS UNIT SUBCUT SCH ×4 (08:36→21:49)
[2017-03-06] MEDS: Insulin GLARGINE(*) 1 UNITS UNIT SUBCUT SCH (08:36)
[2017-03-06] MEDS: Isosorbide Mononitrate ER TAB* 30 MG PO SCH (08:37)
[2017-03-06] MEDS: Aspirin EC Low Dose* 81 MG TAB.EC PO SCH (08:37)
[2017-03-06] MEDS: risperiDONE TAB* 2 MG PO SCH (08:37)
[2017-03-06] MEDS: amLODIPine TAB* 5 MG PO SCH (08:37)
[2017-03-06] MEDS: Vitamin B Complex TAB PO SCH (08:37)
[2017-03-06] MEDS: predniSONE TAB* 10 MG PO SCH (08:37)
[2017-03-06] MEDS: Sevelamer TAB* 800 MG PO SCH ×4 (08:37→17:06)
[2017-03-06] MEDS: Clopidogrel TAB* 75 MG PO SCH (08:37)
[2017-03-06] MEDS: Docusate CAP* 100 MG PO SCH (08:37)
[2017-03-06] MEDS: Divalproex ER TAB(*) 500 MG PO SCH ×4 (08:37→21:51)
[2017-03-06] MEDS: Doxazosin TAB* 2 MG PO SCH (08:38)
[2017-03-06] MEDS: Allopurinol TAB* 100 MG PO SCH (08:38)
[2017-03-06] MEDS: Atenolol TAB* 50 MG PO SCH ×2 (08:38→18:02)
[2017-03-06] MEDS ORDERED: Atenolol TAB* 50 MG PO SCH (09:00)
--- NOTE | 2017-03-06 10:53 | RAD ---
INDICATION: Fluid overload COMPARISON: March 04, 2017 TECHNIQUE: PA and lateral dual-energy views were obtained. FINDINGS: Bones/Soft Tissues: There are no acute bony findings. Cardiomediastinal: The heart is normal in size. The central pulmonary vessels and interstitium are mildly prominent.. Lungs: No focal consolidative changes.. There is no pneumothorax. Pleura: Small left-sided effusion. Other: None IMPRESSION: MINOR INTERSTITIAL CONGESTION WITH SMALL LEFT-SIDED PLEURAL EFFUSION
--- NOTE | 2017-03-06 13:38 | PN ---
Subjective Date of Service: 03/06/17 Interval History: HOSPITALIST PROGRESS NOTE Patient seen and examined at bedside. She denies CP, palpitations, dyspnea is improved, but still present with exertion. Her major complaint is about her diet - she doesn't like the food options, the amount given, and I tried to explain this is the way she should have been eating at home but she disagrees. Family History: Unchanged from Admission Social History: Unchanged from Admission Past Medical History: Unchanged from Admission Objective Active Medications: Acetaminophen (Tylenol Tab*) 650 mg PO Q6H PRN PRN Reason: FEVER/PAIN Last Admin: 03/05/17 00:49 Dose: 650 mg Albuterol (Ventolin 2.5 Mg/3 Ml Neb.May*) 2.5 mg INH Q6H PRN PRN Reason: new order Albuterol (Ventolin Hfa Inhaler*) 2 puff INH Q4HR PRN PRN Reason: SOB/WHEEZING Allopurinol (Zyloprim Tab*) 100 mg PO DAILY [facility] Last Admin: 03/06/17 08:38 Dose: 100 mg Amlodipine Besylate (Norvasc Tab*) 5 mg PO DAILY [facility] Last Admin: 03/06/17 08:37 Dose: 5 mg Aspirin (Aspirin Ec Low Dose*) 81 mg PO DAILY [facility] Last Admin: 03/06/17 08:37 Dose: 81 mg Atenolol (Tenormin Tab*) 100 mg PO QAM [facility] Last Admin: 03/06/17 08:38 Dose: 100 mg Atenolol (Tenormin Tab*) 50 mg PO QPM [facility] Last Admin: 03/05/17 18:37 Dose: 50 mg Benzonatate (Tessalon Cap*) 100 mg PO TID PRN PRN Reason: COUGH Dextrose (D50w Syringe 50 Ml*) 12.5 gm IV PUSH .FOR FS < 60 - SS PRN PRN Reason: FS < 60 Divalproex Sodium (Depakote Er Tab(*)) 500 mg PO TID [facility] Last Admin: 03/06/17 13:24 Dose: 500 mg Docusate Sodium (Colace Cap*) 100 mg PO DAILY [facility] Last Admin: 03/06/17 08:37 Dose: 100 mg Doxazosin Mesylate (Cardura Tab*) 4 mg PO DAILY [facility] Last Admin: 03/06/17 08:38 Dose: 4 mg Heparin Sodium (Porcine) (Heparin Vial(*)) 0 units IV .PER PROTOCOL NISA PRN Reason: Protocol Last Admin: 03/06/17 06:24 Dose: 2,900 units Hydroxyzine HCl (Atarax Tab*) 10 mg PO TID PRN PRN Reason: ANXIETY Last Admin: 03/04/17 21:17 Dose: 10 mg Heparin Sodium/Dextrose (Heparin Drip 25,000 Units(*)) 25,000 units in 500 mls @ 0 mls/hr IVPB .PER RATE NISA; Per Protocol PRN Reason: Protocol Last Admin: 03/06/17 04:15 Dose: 13 mls/hr Insulin Glargine (Lantus(*)) 10 units SUBCUT QAM [facility] Last Admin: 03/06/17 08:36 Dose: 10 units Insulin Human Lispro (Humalog*) 0 units SUBCUT ACHS [facility] PRN Reason: Protocol Last Admin: 03/06/17 11:49 Dose: Not Given Ipratropium [place] (Atrovent 0.5 Mg Neb.May*) 0.5 mg INH Q6H PRN PRN Reason: SOB/WHEEZING Isosorbide Mononitrate (Imdur Er Tab*) 30 mg PO DAILY [facility] Last Admin: 03/06/17 08:37 Dose: 30 mg Melatonin (Melatonin (Nf)) 3 mg PO BEDTIME PRN; Protocol PRN Reason: Sleep Last Admin: 03/05/17 00:49 Dose: 3 mg Mometasone Furoate/Formoterol Fumar (Dulera 200/5 Mdi*) 2 puff INH BID [facility] PRN Reason: Protocol Last Admin: 03/06/17 07:56 Dose: 2 puff Polyethylene Glycol/Electrolytes (Miralax*) 17 gm PO DAILY PRN PRN Reason: CONSTIPATION Last Admin: 03/04/17 13:56 Dose: 17 gm Prednisone (Deltasone Tab*) 30 mg PO DAILY WITH MEAL [facility] Last Admin: 03/06/17 08:37 Dose: 30 mg Risperidone (Risperdal*) 4 mg PO DAILY [facility] Last Admin: 03/06/17 08:37 Dose: 4 mg Sevelamer Carbonate (Renvela Tab*) 800 mg PO TID WITH MEALS [facility] Last Admin: 03/06/17 13:27 Dose: Not Given Vitamin B Complex/Vitamin E (Complex B-100*) 1 tab PO DAILY NISA Last Admin: 03/06/17 08:37 Dose: 1 tab Vital Signs 03/05/17 03/05/17 03/05/17 18:30 20:00 20:16 Temperature 98.8 F 97.8 F Pulse Rate 82 81 Respiratory 18 18 16 Rate Blood Pressure 134/74 149/70 (mmHg) O2 Sat by Pulse 100 99 Oximetry 03/05/17 03/06/17 03/06/17 23:33 03:59 07:22 Temperature 98.4 F 97.8 F 98.6 F Pulse Rate 66 70 70 Respiratory 16 16 16 Rate Blood Pressure 150/63 181/82 125/42 (mmHg) O2 Sat by Pulse 98 100 100 Oximetry Oxygen Devices in Use Now: Nasal Cannula Appearance: Middle aged ladyl sitting up in a couch in NAD. Eyes: No Scleral Icterus Ears/Nose/Mouth/Throat: Mucous Membranes Moist Neck: Trachea Midline Respiratory: Symmetrical Chest Expansion and Respiratory Effort, Clear to Auscultation Cardiovascular: RRR - Normal S1 and S2 Abdominal: NL Sounds; No Tenderness; No Distention Extremities: - - Mild LE edema Neurological: Alert and Oriented x 3, NL Muscle Strength and Tone Lines/Tubes/Other Access: Clean, Dry and Intact Peripheral IV Nutrition: Taking PO's Result Diagrams: 03/04/17 05:55 03/05/17 01:54 Assess/Plan/Problems-Billing Assessment: Mrs. Tomas is a 56yo F with PMH of ESRD on HD, CAD s/p stents, PAD, s/p left femoral stent, HTN, HLD, type 2 DM, gout, schizoaffective disorder, COPD, who presented to ED in acute respiratory failure secondary to pulmonary edema. - Patient Problems (1) Atrial fibrillation Comment: - Converted to NSR. - She is asymptomatic and denies prior h/o Afib. - Cardiology input appreciated - will increase Atenolol to 100mg AM and 50mg PM. - Allergic to Warfarin, but doesn't recall reaction and this was >20 years ago, but was told she should never take it again. [id number] is 5 - continue heparin drip for now. Both Cardiology and Nephrology recommend low dose Eliquis for stroke prevention. Lengthy conversation with patient and family about risks and benefits, especially risk of bleeding. Patient verbalizes understanding. If she' s truly going to a supervised setting, will start Eliquis prior to discharge. (2) Acute pulmonary edema Comment: - Suspect secondary to non-compliance. - Although patient states she's compliant with diet and fluid restrictions, her family gives different information. As per niece, patient drinks a lot of regular soda and when questioned, patient confirms she drinks a lot of Yesenia Eufemia. - As per SW, VNS also reported sometimes she's not compliant with her med box. - Responding well to HD. (3) Acute hypercapnic respiratory failure Comment: - Improved, MS at baseline. - D/c BiPAP and continue supplemental O2. (4) COPD (chronic obstructive pulmonary disease) Comment: - Appear to be stable. - I believe her respiratory failure was secondary to pulmonary edema. - Taper steroids, continue bronchodilators. (5) ESRD (end stage renal disease) Comment: - Continue HD on MWF. (6) CAD (coronary artery disease) Comment: - Stable. - Continue Aspirin, Plavix, Imdur, (7) HTN (hypertension) Comment: - Controlled. - Continue Atenolol, Doxazosin, Amlodipine. (8) Type 2 diabetes mellitus Comment: - A1c is 6. - Continue Lantus and Lispro SS. (9) Pneumothorax Comment: - CT showed a small pneumothorax. - Patient is asymptomatic. - F/u CxR negative for pneumo. (10) Schizoaffective disorder Comment: - Continue Divalproex and Risperidone. (11) MELITON (obstructive sleep apnea) Comment: - Not compliant with CPAP at home. - Pulmonary consult aprreciated - continue CPAP as tolerated. Will need titration study as outpatient. (12) DVT prophylaxis Comment: - Heparin drip. (13) Full code status Status and Disposition: Inpatient.
[2017-03-07] MEDS: Divalproex ER TAB(*) 500 MG PO SCH ×3 (08:27→21:48)
[2017-03-07] MEDS: Vitamin B Complex TAB PO SCH (08:27)
[2017-03-07] MEDS: predniSONE TAB* 10 MG PO SCH (08:28)
[2017-03-07] MEDS: Doxazosin TAB* 2 MG PO SCH (08:28)
[2017-03-07] MEDS: Atenolol TAB* 50 MG PO SCH ×2 (08:29→17:22)
[2017-03-07] MEDS: Isosorbide Mononitrate ER TAB* 30 MG PO SCH (08:29)
[2017-03-07] MEDS: Sevelamer TAB* 800 MG PO SCH ×3 (08:30→17:22)
[2017-03-07] MEDS: risperiDONE TAB* 2 MG PO SCH (08:30)
[2017-03-07] MEDS: Allopurinol TAB* 100 MG PO SCH (08:30)
[2017-03-07] MEDS: Docusate CAP* 100 MG PO SCH (08:31)
[2017-03-07] MEDS: amLODIPine TAB* 5 MG PO SCH (08:31)
[2017-03-07] MEDS: Mometasone/Formoter 200/5 MDI INH SCH ×2 (08:32→19:47)
[2017-03-07] MEDS: Aspirin EC Low Dose* 81 MG TAB.EC PO SCH (08:32)
[2017-03-07] MEDS: Insulin GLARGINE(*) 1 UNITS UNIT SUBCUT SCH (08:33)
[2017-03-07] MEDS: Insulin LISPRO* 1 UNITS UNIT SUBCUT SCH ×4 (08:35→21:44)
[2017-03-07] MEDS ORDERED: Heparin DIALYSIS ONLY(*) 1,000 UNITS/ML VIAL DIALYSIS ONE (11:00)
--- NOTE | 2017-03-07 11:40 | PN ---
Subjective Date of Service: 03/07/17 Interval History: Patient seen and examined at bedside at dialysis. Denies acute complaints or concerns. Patient is in agreement with discharge plan. Time spent in education regarding importance of taking meds as prescribed. VNS to help patient organize med box. Patient was denied for assisted living and [facility]; plan for return to home with VNS and family help. Family History: Unchanged from Admission Social History: Unchanged from Admission Past Medical History: Unchanged from Admission Objective Active Medications: Acetaminophen (Tylenol Tab*) 650 mg PO Q6H PRN PRN Reason: FEVER/PAIN Last Admin: 03/05/17 00:49 Dose: 650 mg Albuterol (Ventolin 2.5 Mg/3 Ml Neb.May*) 2.5 mg INH Q6H PRN PRN Reason: new order Albuterol (Ventolin Hfa Inhaler*) 2 puff INH Q4HR PRN PRN Reason: SOB/WHEEZING Allopurinol (Zyloprim Tab*) 100 mg PO DAILY [facility] Last Admin: 03/07/17 08:30 Dose: 100 mg Amlodipine Besylate (Norvasc Tab*) 5 mg PO DAILY [facility] Last Admin: 03/07/17 08:31 Dose: 5 mg Aspirin (Aspirin Ec Low Dose*) 81 mg PO DAILY [facility] Last Admin: 03/07/17 08:32 Dose: 81 mg Atenolol (Tenormin Tab*) 100 mg PO QAM [facility] Last Admin: 03/07/17 08:29 Dose: 100 mg Atenolol (Tenormin Tab*) 50 mg PO QPM [facility] Last Admin: 03/06/17 18:02 Dose: 50 mg Benzonatate (Tessalon Cap*) 100 mg PO TID PRN PRN Reason: COUGH Dextrose (D50w Syringe 50 Ml*) 12.5 gm IV PUSH .FOR FS < 60 - SS PRN PRN Reason: FS < 60 Divalproex Sodium (Depakote Er Tab(*)) 500 mg PO TID [facility] Last Admin: 03/07/17 08:27 Dose: 500 mg Docusate Sodium (Colace Cap*) 100 mg PO DAILY [facility] Last Admin: 03/07/17 08:31 Dose: 100 mg Doxazosin Mesylate (Cardura Tab*) 4 mg PO DAILY [facility] Last Admin: 03/07/17 08:28 Dose: 4 mg Heparin Sodium (Porcine) (Heparin Vial(*)) 0 units IV .PER PROTOCOL NISA PRN Reason: Protocol Last Admin: 03/06/17 06:24 Dose: 2,900 units Hydroxyzine HCl (Atarax Tab*) 10 mg PO TID PRN PRN Reason: ANXIETY Last Admin: 03/04/17 21:17 Dose: 10 mg Heparin Sodium/Dextrose (Heparin Drip 25,000 Units(*)) 25,000 units in 500 mls @ 0 mls/hr IVPB .PER RATE NISA; Per Protocol PRN Reason: Protocol Last Admin: 03/06/17 04:15 Dose: 13 mls/hr Insulin Glargine (Lantus(*)) 10 units SUBCUT QAM [facility] Last Admin: 03/07/17 08:33 Dose: 10 units Insulin Human Lispro (Humalog*) 0 units SUBCUT ACHS [facility] PRN Reason: Protocol Last Admin: 03/07/17 08:35 Dose: 3 units Ipratropium [place] (Atrovent 0.5 Mg Neb.May*) 0.5 mg INH Q6H PRN PRN Reason: SOB/WHEEZING Isosorbide Mononitrate (Imdur Er Tab*) 30 mg PO DAILY [facility] Last Admin: 03/07/17 08:29 Dose: 30 mg Melatonin (Melatonin (Nf)) 3 mg PO BEDTIME PRN; Protocol PRN Reason: Sleep Last Admin: 03/05/17 00:49 Dose: 3 mg Mometasone Furoate/Formoterol Fumar (Dulera 200/5 Mdi*) 2 puff INH BID [facility] PRN Reason: Protocol Last Admin: 03/07/17 08:32 Dose: 2 puff Polyethylene Glycol/Electrolytes (Miralax*) 17 gm PO DAILY PRN PRN Reason: CONSTIPATION Last Admin: 03/04/17 13:56 Dose: 17 gm Prednisone (Deltasone Tab*) 30 mg PO DAILY WITH MEAL [facility] Last Admin: 03/07/17 08:28 Dose: 30 mg Risperidone (Risperdal*) 4 mg PO DAILY [facility] Last Admin: 03/07/17 08:30 Dose: 4 mg Sevelamer Carbonate (Renvela Tab*) 800 mg PO TID WITH MEALS [facility] Last Admin: 03/07/17 08:30 Dose: 800 mg Vitamin B Complex/Vitamin E (Complex B-100*) 1 tab PO DAILY [facility] Last Admin: 03/07/17 08:27 Dose: 1 tab Vital Signs 03/06/17 03/06/17 03/06/17 15:20 19:45 20:00 Temperature 98.5 F 98.1 F Pulse Rate 76 72 Respiratory 20 16 18 Rate Blood Pressure 147/76 169/81 (mmHg) O2 Sat by Pulse 100 93 Oximetry 03/06/17 03/06/17 03/07/17 20:35 23:41 04:21 Temperature 97.7 F 98.1 F Pulse Rate 83 72 Respiratory 16 16 Rate Blood Pressure 137/61 152/69 (mmHg) O2 Sat by Pulse 95 100 100 Oximetry 03/07/17 03/07/17 03/07/17 07:16 08:00 08:37 Temperature 98.2 F Pulse Rate 74 59 Respiratory 16 18 12 Rate Blood Pressure 150/72 (mmHg) O2 Sat by Pulse 99 99 Oximetry Oxygen Devices in Use Now: Nasal Cannula Appearance: Middle aged female, lying in dialysis chair, NAD Eyes: No Scleral Icterus Ears/Nose/Mouth/Throat: Mucous Membranes Moist Neck: NL Appearance and Movements; NL JVP Respiratory: Symmetrical Chest Expansion and Respiratory Effort, Clear to Auscultation Cardiovascular: NL Sounds; No Murmurs; No JVD, RRR Abdominal: NL Sounds; No Tenderness; No Distention Extremities: - - BLE edema, mild Neurological: Alert and Oriented x 3, NL Muscle Strength and Tone Lines/Tubes/Other Access: Clean, Dry and Intact Peripheral IV Nutrition: Taking PO's Result Diagrams: 03/04/17 05:55 03/05/17 01:54 Microbiology and Other Data: Microbiology 03/03/17 16:45 Aerobic Blood Culture - Preliminary Blood Venous No Growth Day 1 Anaerobic Blood Culture - Preliminary No Growth Day 1 03/03/17 16:45 Aerobic Blood Culture - Preliminary Blood Venous No Growth Day 1 Anaerobic Blood Culture - Preliminary No Growth Day 1 03/03/17 03:00 Nasal Screen MRSA (PCR)(BRANDY) - Final Nasal Mrsa Negative Assess/Plan/Problems-Billing Assessment: Mrs. Tomas is a 56yo F with PMH of ESRD on HD, CAD s/p stents, PAD, s/p left femoral stent, HTN, HLD, type 2 DM, gout, schizoaffective disorder, COPD, who presented to ED in acute respiratory failure secondary to pulmonary edema. - Patient Problems (1) Atrial fibrillation Current Visit: Yes Status: Acute Code(s): I48.91 - UNSPECIFIED ATRIAL FIBRILLATION SNOMED Code(s): 88830691 Comment: - Converted to NSR, had short burst of afib this AM - She is asymptomatic and denies prior h/o Afib. - Cardiology input appreciated - continue Atenolol 100mg AM and 50mg PM. - Allergic to Warfarin, but doesn't recall reaction and this was >20 years ago, but was told she should never take it again. [id number] is 5. Both Cardiology and Nephrology recommend low dose Eliquis for stroke prevention. Lengthy conversation with patient and family about risks and benefits, especially risk of bleeding. Patient verbalizes understanding. - There is a risk of increased clots with abrupt cessation of Eliquis. This has been conveyed to patient and family. Given that the patient also has risk for stroke, we have opted to try the Eliquis with increased family involvement and VNS monitoring. - Start Eliquis this evening. (2) Acute pulmonary edema Code(s): J81.0 - ACUTE PULMONARY EDEMA Comment: - Suspect secondary to non-compliance. - Although patient states she's compliant with diet and fluid restrictions, her family gives different information. As per niece, patient drinks a lot of regular soda and when questioned, patient confirms she drinks a lot of Yesenia Eufemia. - As per SW, VNS also reported sometimes she's not compliant with her med box. - Responding well to HD. (3) Acute hypercapnic respiratory failure Code(s): J96.02 - ACUTE RESPIRATORY FAILURE WITH HYPERCAPNIA Comment: - Improved, MS at baseline. - D/c BiPAP and continue supplemental O2. (4) COPD (chronic obstructive pulmonary disease) Code(s): J44.9 - CHRONIC OBSTRUCTIVE PULMONARY DISEASE, UNSPECIFIED Comment: - Appears to be stable. - I believe her respiratory failure was secondary to pulmonary edema. - Taper steroids, continue bronchodilators. (5) ESRD (end stage renal disease) Code(s): N18.6 - END STAGE RENAL DISEASE Comment: - Continue HD on MWF. (6) CAD (coronary artery disease) Code(s): I25.10 - ATHSCL HEART DISEASE OF [place] CORONARY ARTERY W/O ANG PCTRS Comment: - Stable. - Continue Aspirin, Imdur (7) HTN (hypertension) Code(s): I10 - ESSENTIAL (PRIMARY) HYPERTENSION Comment: - Controlled. - Continue Atenolol, Doxazosin, Amlodipine. (8) Type 2 diabetes mellitus Comment: - A1c is 6. - Continue Lantus and Lispro SS. (9) Pneumothorax Code(s): J93.9 - PNEUMOTHORAX, UNSPECIFIED Comment: - CT showed a small pneumothorax. - Patient is asymptomatic. - F/u CxR negative for pneumo. (10) Schizoaffective disorder Code(s): F25.9 - SCHIZOAFFECTIVE DISORDER, UNSPECIFIED Comment: - Continue Divalproex and Risperidone. (11) MELITON (obstructive sleep apnea) Code(s): G47.33 - OBSTRUCTIVE SLEEP APNEA (ADULT) (PEDIATRIC) Comment: - Not compliant with CPAP at home. - Pulmonary consult appreciated - continue CPAP as tolerated. Will need titration study as outpatient. (12) DVT prophylaxis Code(s): VIX8503 - Comment: Start Anel cisneros. (13) Full code status Code(s): Z78.9 - OTHER SPECIFIED HEALTH STATUS Status and Disposition: Inpatient. Plan for d/c tomorrow with VNS sign-on/follow up upon d/c.
--- NOTE | 2017-03-07 18:02 | PN ---
Hospitalist Progress Note 30 minutes spent in discussion and education re: atrial fibrillation, risk factors, and medication teaching with patient and family member, Rosemary. Patient states, "I understand that I'm at risk for stroke and dying either way. I'd rather not take a medicine that could kill me faster." She does not feel she will be able to succeed in remembering to take the Eliquis medication with only her medication box and the VNS support (who apparently come 1-2 times a week). Patient's family states that they are not in a place to stop in every day to check her medications. Rosa feels that daily phone calls won't work either. She wants to go home. Family is in support of this. She does not want to go to a correction. She has been denied at [facility] assisted living. Other assisted living locally currently not an option, per CM/SW. Patient was denied [facility]. She is open to all these options, as it would give her more help and "it would be nice for someone to help take care of me." However, she is not ready to leave her home. Family willing to try to be more active in helping her with medications and compliance. Will meet with patient and family tomorrow morning for discharge planning and discussion.
[2017-03-07] MEDS ORDERED: Apixaban* 2.5 MG TAB PO SCH (21:00)
[2017-03-07] MEDS ORDERED: Apixaban* 5 MG TAB PO SCH (21:00)
[2017-03-07] MEDS: Heparin VIAL(*) 5000 UNITS/ML VIAL (FIVE THOUSAND) SUBCUT SCH (21:49)
[2017-03-08] MEDS: Heparin VIAL(*) 5000 UNITS/ML VIAL (FIVE THOUSAND) SUBCUT SCH (06:22)
[2017-03-08 07:48] VITALS: BP 146/69
[2017-03-08] MEDS: Mometasone/Formoter 200/5 MDI INH SCH (07:56)
[2017-03-08] MEDS ORDERED: predniSONE TAB* 10 MG PO SCH (08:30)
[2017-03-08] MEDS: Insulin LISPRO* 1 UNITS UNIT SUBCUT SCH (08:49)
[2017-03-08] MEDS: Doxazosin TAB* 2 MG PO SCH (08:58)
[2017-03-08] MEDS: Isosorbide Mononitrate ER TAB* 30 MG PO SCH (08:58)
[2017-03-08] MEDS: Vitamin B Complex TAB PO SCH (08:58)
[2017-03-08] MEDS: Docusate CAP* 100 MG PO SCH (08:59)
[2017-03-08] MEDS: amLODIPine TAB* 5 MG PO SCH (08:59)
[2017-03-08] MEDS: Sevelamer TAB* 800 MG PO SCH (08:59)
[2017-03-08] MEDS: Atenolol TAB* 50 MG PO SCH (09:00)
[2017-03-08] MEDS: Divalproex ER TAB(*) 500 MG PO SCH (09:00)
[2017-03-08] MEDS: risperiDONE TAB* 2 MG PO SCH (09:00)
[2017-03-08] MEDS: Aspirin EC Low Dose* 81 MG TAB.EC PO SCH (09:00)
[2017-03-08] MEDS: Insulin GLARGINE(*) 1 UNITS UNIT SUBCUT SCH (09:01)
[2017-03-08] MEDS: Allopurinol TAB* 100 MG PO SCH (09:01)
--- NOTE | 2017-03-08 09:56 | DCNOTE ---
Subjective Date of Service: 03/08/17 Interval History: Patient seen and examined at bedside. Lengthy conversation had with Rosa and patient's niece, Rosemary Tomas, both yesterday and this morning, regarding discharge to home. Rosemary expressed frustration that there was a push to get the patient into Assisted Living and that it fell through. She did speak with CM/SW yesterday. She understands that the patient was unable to go to [facility] and that no other assisted living facilities are available at this time. Patient was denied [facility]. She is adamantly refusing to go to a SNF, stating, "I need my freedom. If I go somewhere else, I'll just ." Rosemary does state that they support Rosa's freedom and that she has ability to understand the situation and make her own choices. She is concerned about sending her home. We discussed that our current options are to discharge Rosa home and try to support her with VNS and home health aide services and family or to pursue a senior care, as there are currently no assisted living beds available. Rosa wants to go back to her own home and states, "I want to visit my family. I want to be able to go to [place]." When I asked her what would be different this time as opposed to last time, she states, "I need to take my meds or I'll ." She does admit to forgetting from time to time but states that "I always take my insulin." When asked about her diet, she states, "At every meal, I eat a meat, a vegetable, and a starch." Rosa still refuses to take Eliquis and wishes to continue ASA and Plavix. Patient denies any acute complaints, including chest pain, SOB, abd pain, n/v. Family History: Unchanged from Admission Social History: Unchanged from Admission Past Medical History: Unchanged from Admission Objective Active Medications: Acetaminophen (Tylenol Tab*) 650 mg PO Q6H PRN PRN Reason: FEVER/PAIN Last Admin: 03/05/17 00:49 Dose: 650 mg Albuterol (Ventolin 2.5 Mg/3 Ml Neb.May*) 2.5 mg INH Q6H PRN PRN Reason: new order Albuterol (Ventolin Hfa Inhaler*) 2 puff INH Q4HR PRN PRN Reason: SOB/WHEEZING Allopurinol (Zyloprim Tab*) 100 mg PO DAILY [facility] Last Admin: 03/08/17 09:01 Dose: 100 mg Amlodipine Besylate (Norvasc Tab*) 5 mg PO DAILY [facility] Last Admin: 03/08/17 08:59 Dose: 5 mg Aspirin (Aspirin Ec Low Dose*) 81 mg PO DAILY [facility] Last Admin: 03/08/17 09:00 Dose: 81 mg Atenolol (Tenormin Tab*) 100 mg PO QAM [facility] Last Admin: 03/08/17 09:00 Dose: 100 mg Atenolol (Tenormin Tab*) 50 mg PO QPM [facility] Last Admin: 03/07/17 17:22 Dose: 50 mg Benzonatate (Tessalon Cap*) 100 mg PO TID PRN PRN Reason: COUGH Dextrose (D50w Syringe 50 Ml*) 12.5 gm IV PUSH .FOR FS < 60 - SS PRN PRN Reason: FS < 60 Divalproex Sodium (Depakote Er Tab(*)) 500 mg PO TID [facility] Last Admin: 03/08/17 09:00 Dose: 500 mg Docusate Sodium (Colace Cap*) 100 mg PO DAILY [facility] Last Admin: 03/08/17 08:59 Dose: 100 mg Doxazosin Mesylate (Cardura Tab*) 4 mg PO DAILY [facility] Last Admin: 03/08/17 08:58 Dose: 4 mg Heparin Sodium (Porcine) (Heparin Vial(*)) 5,000 units SUBCUT Q8HR [facility] Last Admin: 03/08/17 06:22 Dose: 5,000 units Hydroxyzine HCl (Atarax Tab*) 10 mg PO TID PRN PRN Reason: ANXIETY Last Admin: 03/04/17 21:17 Dose: 10 mg Insulin Glargine (Lantus(*)) 10 units SUBCUT QAM [facility] Last Admin: 03/08/17 09:01 Dose: 10 units Insulin Human Lispro (Humalog*) 0 units SUBCUT ACHS [facility] PRN Reason: Protocol Last Admin: 03/08/17 08:49 Dose: Not Given Ipratropium [place] (Atrovent 0.5 Mg Neb.May*) 0.5 mg INH Q6H PRN PRN Reason: SOB/WHEEZING Isosorbide Mononitrate (Imdur Er Tab*) 30 mg PO DAILY [facility] Last Admin: 03/08/17 08:58 Dose: 30 mg Melatonin (Melatonin (Nf)) 3 mg PO BEDTIME PRN; Protocol PRN Reason: Sleep Last Admin: 03/05/17 00:49 Dose: 3 mg Mometasone Furoate/Formoterol Fumar (Dulera 200/5 Mdi*) 2 puff INH BID NISA PRN Reason: Protocol Last Admin: 03/08/17 07:56 Dose: 2 puff Polyethylene Glycol/Electrolytes (Miralax*) 17 gm PO DAILY PRN PRN Reason: CONSTIPATION Last Admin: 03/04/17 13:56 Dose: 17 gm Prednisone (Deltasone Tab*) 20 mg PO DAILY WITH MEAL [facility] Last Admin: 03/08/17 08:58 Dose: 20 mg Risperidone (Risperdal*) 4 mg PO DAILY [facility] Last Admin: 03/08/17 09:00 Dose: 4 mg Sevelamer Carbonate (Renvela Tab*) 800 mg PO TID WITH MEALS [facility] Last Admin: 03/08/17 08:59 Dose: 800 mg Vitamin B Complex/Vitamin E (Complex B-100*) 1 tab PO DAILY [facility] Last Admin: 03/08/17 08:58 Dose: 1 tab Vital Signs 03/07/17 03/07/17 03/07/17 16:09 19:13 20:00 Temperature 97.5 F 98.8 F Pulse Rate 68 65 Respiratory 20 20 20 Rate Blood Pressure 154/84 155/71 (mmHg) O2 Sat by Pulse 100 100 Oximetry 03/08/17 03/08/17 03/08/17 00:24 04:53 07:24 Temperature 98.1 F 98.2 F 98.2 F Pulse Rate 65 70 65 Respiratory 20 20 18 Rate Blood Pressure 142/54 147/63 146/69 (mmHg) O2 Sat by Pulse 92 100 100 Oximetry Oxygen Devices in Use Now: Nasal Cannula Appearance: Female patient, ambulating in halls, [facility] Eyes: No Scleral Icterus Ears/Nose/Mouth/Throat: Mucous Membranes Moist Respiratory: Symmetrical Chest Expansion and Respiratory Effort, Clear to Auscultation Cardiovascular: NL Sounds; No Murmurs; No JVD, RRR Abdominal: NL Sounds; No Tenderness; No Distention Neurological: Alert and Oriented x 3 Lines/Tubes/Other Access: Clean, Dry and Intact Peripheral IV Nutrition: Taking PO's Result Diagrams: 03/04/17 05:55 03/05/17 01:54 Microbiology and Other Data: Microbiology 03/03/17 16:45 Aerobic Blood Culture - Preliminary Blood Venous No Growth Day 1 Anaerobic Blood Culture - Preliminary No Growth Day 1 03/03/17 16:45 Aerobic Blood Culture - Preliminary Blood Venous No Growth Day 1 Anaerobic Blood Culture - Preliminary No Growth Day 1 03/03/17 03:00 Nasal Screen MRSA (PCR)(BRANDY) - Final Nasal Mrsa Negative Assess/Plan/Problems-Billing Assessment: Mrs. Tomas is a 56yo F with PMH of ESRD on HD, CAD s/p stents, PAD, s/p left femoral stent, HTN, HLD, type 2 DM, gout, schizoaffective disorder, COPD, who presented to ED in acute respiratory failure secondary to pulmonary edema. - Patient Problems (1) Atrial fibrillation Code(s): I48.91 - UNSPECIFIED ATRIAL FIBRILLATION Comment: - Converted to NSR - She is asymptomatic and denies prior h/o Afib. - Cardiology input appreciated - continue Atenolol 100mg AM and 50mg PM. - Allergic to Warfarin, but doesn't recall reaction and this was >20 years ago, but was told she should never take it again. [id number] is 5. Both Cardiology and Nephrology recommend low dose Eliquis for stroke prevention. - Lengthy conversation with patient and family about risks and benefits, especially risk of bleeding. Patient is choosing not to use Eliquis at this time. She would rather stay on ASA and Plavix because she feels that she is at risk either way and does not want the risk of bleeding or having more clots if she does forget to take her medication. (2) Acute pulmonary edema Code(s): J81.0 - ACUTE PULMONARY EDEMA Comment: - Suspect secondary to non-compliance. - Although patient states she's compliant with diet and fluid restrictions, her family gives different information. As per niece, patient drinks a lot of regular soda and when questioned, patient confirms she drinks a lot of Yesenia Eufemia. - As per SW, VNS also reported sometimes she's not compliant with her med box. - Responding well to HD. (3) Acute hypercapnic respiratory failure Code(s): J96.02 - ACUTE RESPIRATORY FAILURE WITH HYPERCAPNIA Comment: - Improved, MS at baseline. - D/c BiPAP and continue supplemental O2. (4) COPD (chronic obstructive pulmonary disease) Code(s): J44.9 - CHRONIC OBSTRUCTIVE PULMONARY DISEASE, UNSPECIFIED Comment: - Appears to be stable. - I believe her respiratory failure was secondary to pulmonary edema. - Taper steroids, continue bronchodilators. (5) ESRD (end stage renal disease) Code(s): N18.6 - END STAGE RENAL DISEASE Comment: - Continue HD on MWF. (6) CAD (coronary artery disease) Code(s): I25.10 - ATHSCL HEART DISEASE OF [place] CORONARY ARTERY W/O ANG PCTRS Comment: - Stable. - Continue Aspirin, Imdur (7) HTN (hypertension) Code(s): I10 - ESSENTIAL (PRIMARY) HYPERTENSION Comment: - Controlled. - Continue Atenolol, Doxazosin, Amlodipine. (8) Type 2 diabetes mellitus Comment: - A1c is 6. - Continue Lantus and Lispro SS. (9) Pneumothorax Code(s): J93.9 - PNEUMOTHORAX, UNSPECIFIED Comment: - CT showed a small pneumothorax. - Patient is asymptomatic. - F/u CxR negative for pneumo. (10) Schizoaffective disorder Code(s): F25.9 - SCHIZOAFFECTIVE DISORDER, UNSPECIFIED Comment: - Continue Divalproex and Risperidone. (11) MELITON (obstructive sleep apnea) Code(s): G47.33 - OBSTRUCTIVE SLEEP APNEA (ADULT) (PEDIATRIC) Comment: - Not compliant with CPAP at home. - Pulmonary consult appreciated - continue CPAP as tolerated. Will need titration study as outpatient. (12) DVT prophylaxis Code(s): [id number] - Comment: Start Eliquis tonight. (13) Full code status Code(s): Z78.9 - OTHER SPECIFIED HEALTH STATUS Status and Disposition: Inpatient. D/c to home. Outpatient VNS follow-up. Family present for instructions and teaching.
--- NOTE | 2017-03-09 04:02 | DS ---
MEDICINE DISCHARGE SUMMARY: DATE OF ADMISSION: 03/03/17 DATE OF DISCHARGE: 03/08/17 PROVIDER: Heather Gaston NP ATTENDING PHYSICIAN: Joann Corea MD* (as dictated by Heather Gaston NP). PRIMARY CARE PHYSICIAN: Fe Atkins MD PRIMARY WINDOWS APPLICATION PACKAGER: Emir Henning MD PRIMARY PATIENT ATTENDANT: Carlo Hodgson MD CONSULTING PROVIDERS: Malini Montez MD, Pulmonology. PRIMARY DISCHARGE DIAGNOSES: 1. Atrial fibrillation. 2. Pulmonary edema. 3. Acute hypercapnic respiratory failure. SECONDARY DISCHARGE DIAGNOSES: 1. Chronic obstructive pulmonary disease. 2. End-stage renal disease. 3. Peripheral arterial disease, status post left groin stent. 4. Hypertension. 5. Hyperlipidemia. 6. Type 2 diabetes. 7. History of gout. 8. Schizoaffective disorder, bipolar type. MEDICATIONS AT DISCHARGE: 1. Loratadine 10 mg daily. 2. Sevelamer 800 mg t.i.d. with meals. 3. Docusate 100 mg daily. 4. Risperidone 4 mg daily. 5. Renal vitamin one tab daily. 6. Imdur 30 mg daily. 7. Doxazosin 4 mg daily. 8. Acetaminophen 500 mg q.8 hours p.r.n. 9. Depakote ER 500 mg t.i.d. 10. MiraLax 17 g daily. 11. Kayexalate 15 g daily p.r.n. 12. Albuterol two puffs inhale q.4 hours p.r.n. 13. Nitroglycerin 0.4 mg sublingual q.5 minutes p.r.n. 14. Atrovent 0.5 mg inhaled q.6 hours p.r.n. 15. Hydroxyzine 10 mg t.i.d. p.r.n. 16. DuoNeb one nebulizer treatment inhaled q.6 hours p.r.n. 17. Benzonatate 100 mg t.i.d. p.r.n. 18. Symbicort 160/4.5 mg two puffs inhaled b.i.d. 19. Lantus 25 mg units at bedtime. 20. Plavix 75 mg daily. 21. Amlodipine 5 mg daily. 22. Aspirin 81 mg daily. 23. Allopurinol 100 mg daily. 24. Atenolol 100 mg q.a.m. and 50 mg q.p.m. This is a change in dosing. HOSPITAL TESTING THIS ADMISSION: Transthoracic echocardiogram, conclusion: Mild concentric left ventricular hypertrophy is observed. The estimated ejection fraction is 55% to 60%. There is normal left ventricular systolic function. The right ventricular chamber size and systolic function are within normal limits. There is no evidence of aortic regurgitation. There is no evidence of aortic stenosis. There is no evidence of mitral regurgitation. There is trace tricuspid regurgitation. Unable to estimate the right ventricular systolic pressure. There is no significant pericardial effusion. Ill-defined mass in the proximal portion of the ascending aorta. Measuring 3.2 cm x 1 cm. Not clearly attached to the aortic valve. CT of the chest or MOSES may be helpful for better visualization. Compared to study of 12/08/15, the LV function and valves are the same. The aortic mass is new. CT of the chest and thorax, impression: 1. Small pleural effusions are likely secondary to mild interstitial pulmonary edema. 2. Normal diameter thoracic aorta with only minimal atherosclerotic plaque. No evidence for dissection or mass within or impressing upon the thoracic aorta. 3. Coronary artery calcifications. 4. Mild cardiomegaly with suggestion of left ventricular hypertrophy. 5. Minimal pericardial effusion. HOSPITAL COURSE OF STAY: For full details, please refer to the H and P provided by Dr. Gandara on 03/03/17 and the medical record. In summary, Ms. Tomas is a 56- year-old female with the past medical history as previously stated, who presented to the emergency room with complaints of shortness of breath. On the evening of 03/02/17, the patient went to visit her nephew. She was not on her oxygen at that time. The patient's family then drove her back home and notes that her house was in more disarray than usual. Later that evening the patient called her nephew and reported that she could not breathe. She was brought in by EMS services and was started on BiPAP and her breathing did improve. Ms. Tomas was admitted with acute hypercarbic respiratory failure and acute pulmonary edema. Further investigation that the patient has been noncompliant with her medications and diet. We did appreciate consultations from the patient's modeling analyst, Dr. Hodgson, who did adjust her atenolol dosing. The patient did convert into an atrial flutter with rapid ventricular response and coupled with her shortness of breath , this was concerning. Dr. Hodgson communicated concern for the patient's underlying risk for atrial flutter and atrial fibrillation which includes sleep apnea, for which the patient is not currently being maintained on a CPAP. The patient reports that her device does not work and her mask does not fit properly. Additionally, he also stated the patient has obesity and CO2 retention. The atenolol was adjusted per recommendation. The patient was also recommended to start on an anticoagulant. The patient has WARFARIN listed as an allergy, but this occurred approximately 20 years ago and the patient is unable to identify what the allergy actually was and the reaction. She is refusing to take any further WARFARIN. We did discuss the use of Eliquis and the patient was open to this, but it was felt that given the patient's noncompliance with medication, that this medication should only be started if the patient was in a supervised setting such as an assisted living or a usp. The patient is at risk for stroke with her atrial fibrillation; however, with the newer anticoagulant, the patient is also at risk for increased blood clots if she misses doses or takes it infrequently. This was communicated to the patient and her family. In regards to the patient's pulmonary edema, again this was thought to be secondary to noncompliance. She did respond well to hemodialysis. Teaching was provided regarding diet and fluid restriction. The patient states that she does follow a 1500 mL fluid restriction, although her niece is not sure how true this is. In regards to acute hypercapnic respiratory failure, the patient improved and she was maintained on her chronic O2 at the same settings. In regards to her diabetes, her A1c is 6. Patient states that she does follow a diabetic diet. We did discuss making better choices instead of things like soda. The patient's family will continue to work with the patient on this and her food choices. The patient have a CT that showed a small pneumothorax. We did appreciate a pulmonology consult. Patient was asymptomatic and a followup chest x-ray was negative for the pneumothorax. Pulmonology also advised this on her obstructive sleep apnea. The patient has not been compliant with her CPAP at home. Per Dr. Montez, the patient will require an outpatient BiPAP titration in order to further evaluate her . This has been conveyed to the patient and her niece and family will help her help set up this appointment in the outpatient setting. Dr. Montez also recommended that the patient use an OxyMask with her portable oxygen. The patient was given an OxyMask in the hospital and was instructed with this. She did try the mask on and is aware of how to use it. It was felt by the members of the patient's medical team and family members that the patient would benefit greatly from placement in an assisted living facility. The patient was screened for [facility], but they could not guarantee that the patient can make it to her dialysis appointments 3 days a week. It was communicated by the [facility] nursing staff as well as the family that the patient has appeared to have declined. We did attempt to refer the patient to a subacute rehab and she was offered a bed at [facility]. However, the patient's insurance declined the request deeming it "not medically necessary." No other assisted living facilities are available at this time for the patient, although she would benefit from further outpatient screening and applications. In discussion with the patient and her niece, Rosemary, it was determined that the patient would most likely have to return home. Rosemary did express quite a bit of frustration stating that she felt like the assisted living was the only viable option for her aunt, but understood the situation present at this time. Rosemary did state explicitly that they feel Rosa has the capacity to understand and make her own decisions still at this time. She specifically asked that Rosa be involved in all these conservations and to not talk about her social situation without her. I did openly express my concerns for the patient's safety and asked if she will be open to perhaps a placement at a custodial facility given the concerns of the medical team and her family. The patient was adamant that she does not want this at this time and states that she needs her freedom. I asked what would be different at this time when she went home as we have not added much in the way of services. She states that she knows that medication compliance is important and that she is going to take her medications. The family also states that they will try to help with this and be more vigilant in reminding her and checking in on her. They do admit this is difficult given their own personal life situations. Patient has been reestablished with the visiting nurses as well as her home health aides. We did review all the medications together and the importance of taking these medications. In regards to the Eliquis that was previously discussed, the patient adamantly refused to take this medication. In the presence of both the patient and Rosemary, we did discuss the risks of asymptomatic atrial fibrillation and her increased stroke risk. We also discussed the risks and benefits of Eliquis. Rosa states that she does not want to take this medication because she is afraid that it could kill her either way. She understands that with her asymptomatic atrial fibrillation that she is still at risk for stroke, but feels that she is at risk either way, would prefer not to be on Eliquis. The family is in agreement and understanding of Rosa's decision. I did encourage Rosemary to continue to pursue other outpatient options and screening for assisted living even after Rosa's discharge. She verbalized understanding. There is an option perhaps in the future for Rosa to live with her family. However, Rosa is refusing to do this at this time and states that she wants to live at her own home. CONCERNS AT DISCHARGE: Rosa Tomas will be discharged home on 03/08/17. Her family is to help her follow up with Dr. Montez and her PCP, Dr. Atkins next week. Visiting nurse services should be seeing the patient today upon discharge to home and has been made aware of her discharge. OUTPATIENT FOLLOWUP NEEDS: The patient needs BiPAP titration per Dr. Montez. She will follow up with Dr. Montez within 1 week. Again, this was communicated to Rosa and her family members. She should continue her hemodialysis as previously scheduled. DIET: Renal diet, low sodium, no concentrated sweets. ACTIVITY: As tolerated. CONDITION: Improved, stable. DISPOSITION: To home with visiting nurse services. TIME SPENT: Time spent on this discharge was approximately 60 minutes. Again, this is only a brief summary of the patient's hospital course of stay. This was an extended course of stay. If you have any further questions or need further information, please feel free to contact me at [phone]. Please also consult the medical record for further details and consultations. HEATHER GASTON NP CC: Fe Atkins MD; Emir Henning MD; Carlo Hodgson MD* [id number]/[facility] #: [id number] [facility]
== END 2017-03-08 11:55 | disposition home or self-care (01) | DRG 133 ==
LOC: ED 00:48 → ICU 02:35 → MEDTELE 03-04 11:12
PROVIDERS: ADMIT Hospitalist; ATTEND Internal Medicine
PROC: 5A09457 Assistance with Respiratory Ventilation, 24-96 Consecutive Hours, Continuous Positive Airway Pressure (ICD-10-PCS; principal; 2017-03-03)
DX: J96.02 Acute respiratory failure with hypercapnia (principal); N18.6 End stage renal disease; J81.1 Chronic pulmonary edema; I48.91 Unspecified atrial fibrillation; I13.11 Hypertensive heart and chronic kidney disease without heart failure, with stage 5 chronic kidney disease, or end stage renal disease; J93.9 Pneumothorax, unspecified; E66.2 Morbid (severe) obesity with alveolar hypoventilation; J98.11 Atelectasis; I25.10 Atherosclerotic heart disease of native coronary artery without angina pectoris; J44.9 Chronic obstructive pulmonary disease, unspecified; E11.51 Type 2 diabetes mellitus with diabetic peripheral angiopathy without gangrene; E78.5 Hyperlipidemia, unspecified; F25.0 Schizoaffective disorder, bipolar type; Z79.1 Long term (current) use of non-steroidal anti-inflammatories (NSAID); Z79.02 Long term (current) use of antithrombotics/antiplatelets; Z79.82 Long term (current) use of aspirin; Z79.899 Other long term (current) drug therapy; Z91.14 Patient's other noncompliance with medication regimen; Z91.11 Patient's noncompliance with dietary regimen; Z99.2 Dependence on renal dialysis; M10.9 Gout, unspecified; Z79.4 Long term (current) use of insulin; Z87.891 Personal history of nicotine dependence; Z88.5 Allergy status to narcotic agent; Z88.8 Allergy status to other drugs, medicaments and biological substances; Z82.49 Family history of ischemic heart disease and other diseases of the circulatory system; Z68.34 Body mass index [BMI] 34.0-34.9, adult; Z95.5 Presence of coronary angioplasty implant and graft
CPT/HCPCS: 36415; 36600; 71010; 71020; 71275; 80048; 80053; 82803; 83036; 83605; 83735; 83880; 84484; 85025; 85027; 85730; 87040; 87641; 90935; 93005; 93306; 94640; 94660; 94760; A9270-GY; C8929; G0257; J1644; J2920; J2930; J7512; J7644; Q9967

== ENCOUNTER 2017-04-26 06:41 | Emergency (ER) | payer OTHER ==
[2017-04-26] MEDS ORDERED: Albuterol/Ipratropium NEB.SOL* Albuterol 2.5 MG/Ipratropium 0.5 MG 3 ML INH ONE (06:45)
[2017-04-26] MEDS ORDERED: methylPREDNISolone 125 MG* 2 ML VIAL IV ONE (06:45)
[2017-04-26 07:12] LABS: Hematocrit 36 % (35-47); Hemoglobin 11.4 g/dl (12.0-16.0); Mean Corpuscular HGB Conc 32 g/dl (31-36); Mean Corpuscular Hemoglobin 33 pg (27-31); Mean Corpuscular Volume 103 fL (80-97); Mean Platelet Volume 7 um3 (7.4-10.4); Red Blood Count 3.48 10^6/ul (4.0-5.4); Red Cell Distribution Width 17 % (10.5-15); White Blood Count 6.4 10^3/ul (3.5-10.8)
[2017-04-26 07:24] LABS: Albumin 3.2 g/dL (3.2-5.2); BUN/Creatinine Ratio 4.2 (8-20); Calcium 8.8 mg/dL (8.6-10.3); EGFR African American 14.7 (>60); EGFR Non-African American 11.4 (>60); Globulin 3.1 g/dL (2-4); Potassium 3.9 mmol/L (3.5-5.0); Total Bilirubin 0.3 mg/dL (0.2-1.0); Total Protein 6.3 g/dL (6.4-8.9)
[2017-04-26 07:25] VITALS: BP 155/78
[2017-04-26 07:25] LABS: Troponin I 0.01 ng/mL (<0.04)
[2017-04-26 07:42] LABS: FIO2 2
[2017-04-26 07:46] LABS: PCO2 Arterial 61 mmHg (35-45)
[2017-04-26] MEDS ORDERED: Furosemide IV* 10 MG/ML VIAL (40 MG) IV SLOW PU ONE (08:53)
--- NOTE | 2017-04-26 10:00 | RAD ---
Indication: Shortness of breath. 2 views of the chest are reviewed and compared to previous exam dated March 06, 2017. No mediastinal shift is noted. Heart is mildly enlarged. Lung cedillo appear hyperinflated. No definite pleural fluid, pneumonia or pneumothorax is noted. IMPRESSION: No active cardiopulmonary disease is noted.
--- NOTE | 2017-04-26 18:47 | ED ---
Charli Monroe Auryana, scribed for Marcos Sims MD on 04/26/17 at 0707 . Respiratory - HPI Summary HPI Summary: 56 year old female BIBA with dyspnea starting this morning at 06:00. On ED arrival, patient received Duoneb which greatly improved symptoms. PMHx is significant for COPD, CAD, CRF with hemodialysis, PNA, and DM. - History of Current Complaint Chief Complaint: EDRespiratoryDistress Stated Complaint: RESPRIATORY DISTRESS Time Seen by Provider: 04/26/17 07:30 Hx Obtained From: Patient Onset/Duration: Sudden Onset - at 06:00 AM today, Still Present - but much improved Timing: Constant Initial Severity: Mild Current Severity: Mild Pain Intensity: 0 Alleviating Factor(s): Neb. Bronchodilators (Frequency Of Use) - On arrival Associated Signs and Symptoms: SOB - dyspnea Related History: Similar Episode/Dx as - history of COPD, and PNA - Allergy/Home Medications Allergies/Adverse Reactions: Allergies Allergy/AdvReac Type Severity Reaction Status Date / Time Chlorpromazine Allergy Unknown Verified 04/26/17 06:50 [From Thorazine] Reaction Details Codeine Allergy Unknown Verified 04/26/17 06:50 [From Tylenol with Codeine Reaction #3] Details Lorazepam [From Ativan] Allergy Unknown Verified 04/26/17 06:50 Reaction Details Warfarin [From Coumadin] Allergy Unknown Verified 04/26/17 06:50 Reaction Details PMH/Surg Hx/FS Hx/Imm Hx Endocrine/Hematology History: Reports: Hx Diabetes Cardiovascular History: Reports: Hx Congestive Heart Failure, Hx Coronary Artery Disease, Hx Hypercholesterolemia, Hx Hypertension, Hx Myocardial Infarction - 12 years ago, Hx Peripheral Vascular Disease, Other Cardiovascular Problems/Disorders - HEART FAILURE Denies: Hx Pacemaker/ICD Respiratory History: Reports: Hx Chronic Obstructive Pulmonary Disease (COPD) - on 2L O2 at home (pt reports not always using due to difficulty w/ O2 tank), Hx Seasonal Allergies, Hx Sleep Apnea History: Reports: Hx Chronic Renal Failure, Hx Dialysis - has been on dialysis for "over a year" per patient, Hx Renal Disease Musculoskeletal History: Reports: Hx Gout, Other Musculoskeletal History - using cane Sensory History: Reports: Hx Contacts or Glasses - reading Denies: Hx Cataracts, Hx Eye Injury, Hx Eye Prosthesis, Hx Glaucoma, Hx Legally Blind, Hx Macular Degeneration, Hx Vision Problem, Hx Deafness, Hx Hearing Aid, Hx Hearing Problem, Other Sensory Impairments Opthamlomology History: Reports: Hx Contacts or Glasses - reading Denies: Hx Cataracts, Hx Eye Injury, Hx Eye Prosthesis, Hx Glaucoma, Hx Legally Blind, Hx Macular Degeneration, Hx Vision Problem, Other Sensory Impairments Psychiatric History: Reports: Hx Schizophrenia, Hx Bipolar Disorder Denies: Hx Eating Disorder - Cancer History Hx Chemotherapy: No Hx Radiation Therapy: No - Surgical History Surgery Procedure, Year, and Place: TOE AMPUTATION, OVARIAN CYST REMOVED Hx Anesthesia Reactions: No - Immunization History Date of Tetanus Vaccine: Unk Date of Influenza Vaccine: Fall 2014 Infectious Disease History: No Infectious Disease History: Denies: Hx Clostridium Difficile, Hx Hepatitis, Hx Human Immunodeficiency Virus (HIV), Hx of Known/Suspected MRSA, Hx Shingles, Hx Tuberculosis, History Other Infectious Disease, Traveled Outside the [place] in Last 30 Days - Family History Known Family History: Negative: Other Family History: No FHx of breast CA - Social History Alcohol Use: None Hx Substance Use: No Substance Use Type: Reports: None Hx Tobacco Use: Yes Smoking Status (MU): Former Smoker Type: Cigarettes Have You Smoked in the Last Year: Yes Review of Systems Constitutional: Negative Negative: Fever Eyes: Negative ENT: Negative Cardiovascular: Negative Positive: Other - dyspnea Gastrointestinal: Negative Genitourinary: Negative Musculoskeletal: Negative Skin: Negative Neurological: Negative Psychological: Normal All Other Systems Reviewed And Are Negative: Yes Physical Exam - Summary Physical Exam Summary: VITAL SIGNS: Reviewed. GENERAL: Patient is a well-developed and nourished female who is lying comfortable in the stretcher. Patient is not in any acute respiratory distress. HEAD AND FACE: No signs of trauma. No ecchymosis, hematomas or skull depressions. No sinus tenderness. EYES: PERRLA, EOMI x 2, No injected conjunctiva, no nystagmus. EARS: Hearing grossly intact. Ear canals and tympanic membranes are within normal limits. MOUTH: Oropharynx within normal limits. NECK: Supple, trachea is midline, no adenopathy, no JVD, no carotid bruit, no c- spine tenderness, neck with full ROM. CHEST: Symmetric, no tenderness at palpation LUNGS: Clear to auscultation bilaterally. No wheezing or crackles. CVS: Regular rate and rhythm, S1 and S2 present, no murmurs or gallops appreciated. ABDOMEN: Soft, non-tender. No signs of distention. No rebound no guarding, and no masses palpated. Bowel sounds are normal. EXTREMITIES: FROM in all major joints, no edema, no cyanosis or clubbing. NEURO: Alert and oriented x 3. No acute neurological deficits. Speech is normal and follows commands. SKIN: Dry and warm. Triage Information Reviewed: Yes Vital Signs On Initial Exam: Initial Vitals Temp Pulse Resp BP Pulse Ox 97.8 F 80 12 133/83 99 04/26/17 06:43 04/26/17 06:43 04/26/17 06:43 04/26/17 06:43 04/26/17 06:43 Vital Signs Reviewed: Yes - [place] Coma Scale Coma Scale Total: 15 Diagnostics - Vital Signs Vital Signs Temp Pulse Resp BP Pulse Ox 04/26/17 06:46 97.8 F 77 17 133/83 98 04/26/17 06:43 97.8 F 80 12 133/83 99 - Laboratory Lab Results: Lab Results 04/26/17 04/26/17 04/26/17 Range/Units 06:55 06:55 06:55 WBC 6.4 (3.5-10.8) 10^3/ul RBC 3.48 L (4.0-5.4) 10^6/ul Hgb 11.4 L (12.0-16.0) g/dl Hct 36 (35-47) % MCV 103 H (80-97) fL MCH 33 H (27-31) pg MCHC 32 (31-36) g/dl RDW 17 H (10.5-15) % Plt Count 201 (150-450) 10^3/ul MPV 7 L (7.4-10.4) um3 Neut % (Auto) 55.7 (38-83) % Lymph % (Auto) 30.8 (25-47) % [place] % (Auto) 9.7 H (1-9) % Eos % (Auto) 3.1 (0-6) % Baso % (Auto) 0.7 (0-2) % Absolute Neuts (auto) 3.6 (1.5-7.7) 10^3/ul Absolute Lymphs (auto) 2.0 (1.0-4.8) 10^3/ul Absolute Monos (auto) 0.6 (0-0.8) 10^3/ul Absolute Eos (auto) 0.2 (0-0.6) 10^3/ul Absolute Basos (auto) 0 (0-0.2) 10^3/ul Absolute Nucleated RBC 0.01 10^3/ul Nucleated RBC % 0.1 Patient Temperature ABG pH (7.35-7.45) ABG pCO2 (35-45) mmHg ABG pO2 (80-100) mmHg ABG HCO3 (19-31) mmol/L ABG O2 Saturation (95-98) % ABG Base Excess (-2.0-2.0) Respiration Rate Ventilator Type Vent Mode FiO2 Inspiratory Time PEEP Pressure Support Pressure Control EPAP IPAP BiPAP Sodium 137 (133-145) mmol/L Potassium 3.9 (3.5-5.0) mmol/L Chloride 99 L (101-111) mmol/L Carbon Dioxide 34 H (22-32) mmol/L Anion Gap 4 (2-11) mmol/L BUN 17 (6-24) mg/dL Creatinine 4.03 H (0.51-0.95) mg/dL Est GFR ( Amer) 14.7 (>60) Est GFR (Non-Af Amer) 11.4 (>60) BUN/Creatinine Ratio 4.2 L (8-20) Glucose 109 H (70-100) mg/dL Lactic Acid 1.2 (0.5-2.0) mmol/L Calcium 8.8 (8.6-10.3) mg/dL Total Bilirubin 0.30 (0.2-1.0) mg/dL AST 10 L (13-39) U/L ALT 8 (7-52) U/L Alkaline Phosphatase 66 (34-104) U/L Troponin I 0.01 (<0.04) ng/mL B-Natriuretic Peptide ( - 100) pg/mL Total Protein 6.3 L (6.4-8.9) g/dL Albumin 3.2 (3.2-5.2) g/dL Globulin 3.1 (2-4) g/dL Albumin/Globulin Ratio 1.0 (1-3) 04/26/17 04/26/17 Range/Units 06:55 07:36 WBC (3.5-10.8) 10^3/ul RBC (4.0-5.4) 10^6/ul Hgb (12.0-16.0) g/dl Hct (35-47) % MCV (80-97) fL MCH (27-31) pg MCHC (31-36) g/dl RDW (10.5-15) % Plt Count (150-450) 10^3/ul MPV (7.4-10.4) um3 Neut % (Auto) (38-83) % Lymph % (Auto) (25-47) % [place] % (Auto) (1-9) % Eos % (Auto) (0-6) % Baso % (Auto) (0-2) % Absolute Neuts (auto) (1.5-7.7) 10^3/ul Absolute Lymphs (auto) (1.0-4.8) 10^3/ul Absolute Monos (auto) (0-0.8) 10^3/ul Absolute Eos (auto) (0-0.6) 10^3/ul Absolute Basos (auto) (0-0.2) 10^3/ul Absolute Nucleated RBC 10^3/ul Nucleated RBC % Patient Temperature Not Reportable ABG pH 7.38 (7.35-7.45) ABG pCO2 61 H (35-45) mmHg ABG pO2 62 L (80-100) mmHg ABG HCO3 32.0 H (19-31) mmol/L ABG O2 Saturation 94.9 L (95-98) % ABG Base Excess 9.2 H (-2.0-2.0) Respiration Rate Not Reportable Ventilator Type Not Reportable Vent Mode Not Reportable FiO2 2 Inspiratory Time Not Reportable PEEP Not Reportable Pressure Support Not Reportable Pressure Control Not Reportable EPAP Not Reportable IPAP Not Reportable BiPAP Not Reportable Sodium (133-145) mmol/L Potassium (3.5-5.0) mmol/L Chloride (101-111) mmol/L Carbon Dioxide (22-32) mmol/L Anion Gap (2-11) mmol/L BUN (6-24) mg/dL Creatinine (0.51-0.95) mg/dL Est GFR ( Amer) (>60) Est GFR (Non-Af Amer) (>60) BUN/Creatinine Ratio (8-20) Glucose (70-100) mg/dL Lactic Acid (0.5-2.0) mmol/L Calcium (8.6-10.3) mg/dL Total Bilirubin (0.2-1.0) mg/dL AST (13-39) U/L ALT (7-52) U/L Alkaline Phosphatase (34-104) U/L Troponin I (<0.04) ng/mL B-Natriuretic Peptide 906 H ( - 100) pg/mL Total Protein (6.4-8.9) g/dL Albumin (3.2-5.2) g/dL Globulin (2-4) g/dL Albumin/Globulin Ratio (1-3) Result Diagrams: 04/26/17 06:55 04/26/17 06:55 Lab Statement: Any lab studies that have been ordered have been reviewed, and results considered in the medical decision making process. - Radiology CXR Xray Interpretation: No Acute Changes Radiology Interpretation Completed By: Radiologist - EKG 06:53 EKG Interpretation: Sinus rhythm @ 74 bpm, with PVCs. Disposition - Course Assessment/Plan: 56 year old female BIBA with dyspnea starting this morning at 06:00. On ED arrival, patient received Duoneb which greatly improved symptoms. PMHx is significant for COPD, CAD, CRF with hemodialysis, PNA, and DM. Test results without significant abnormalities and are at her baseline. CXR- NAD. EKG-Sinus rhythm @ 74 bpm, with PVCs. In ED course, patient was given Lasix due to increase BNP wich is mildly elvated for her. She usually has a higher BNP. The patient is ambulating, she does not have any SOB, or CP after medications. Since all of the blood work is at baseline, and she feels better I will discharge home with PCP follow up. She is scheduled for dialysis on Friday. She was asked to keep her appointment. Patient is hemodynamically stable and A&Ox3. I discussed all the findings and test results with the patient. Patient was instructed to return to the emergency room immediately if any of the symptoms return or worsens. Plan of care was discussed with the patient and understands and agrees. All questions were answered at patient satisfaction. There were no further complaints or concerns. Lung exam before discharge: CTA B/L. Good air exchange. No wheezing or crackles heard. CVS: S1 and S2 present. No murmurs appreciated. Patient is alert and oriented x 3. Patient is hemodynamically stable. Patient will be discharged home with follow up PCP in the next 2-3 days - Differential Dx - Cardiopulmonary Differential Diagnoses - Cardiopulmonary: CHF, Exacerbation Of COPD - Diagnoses Provider Diagnoses: COPD (chronic obstructive pulmonary disease), CHF (congestive heart failure) Discharge - Discharge Plan Condition: Stable Disposition: HOME Patient Education Materials: Heart Failure (ED), COPD (Chronic Obstructive Pulmonary Disease) (ED) Referrals: Fe Atkins MD [Primary Care Provider] - 2 Days The documentation as recorded by the Charli echavarria Auryana accurately reflects the service I personally performed and the decisions made by Levi estes Walter, MD.
== END 2017-04-26 09:49 | disposition home or self-care (01) ==
LOC: ED 06:41
DX: J44.9 Chronic obstructive pulmonary disease, unspecified (principal); I50.9 Heart failure, unspecified
CPT/HCPCS: 36415; 36600; 71020; 80053; 82803; 83605; 83880; 84484; 85025; 93005; 94640; 96374; 96375; 99282; A9270-GY; J1940; J2930

== ENCOUNTER 2017-05-07 23:17 | Observation (INO) | payer OTHER ==
[2017-05-07] MEDS ORDERED: Albuterol/Ipratropium NEB.SOL* Albuterol 2.5 MG/Ipratropium 0.5 MG 3 ML ONE (23:21)
[2017-05-07] MEDS ORDERED: Albuterol/Ipratropium NEB.SOL* Albuterol 2.5 MG/Ipratropium 0.5 MG 3 ML INH ONE (23:26)
[2017-05-08] MEDS ORDERED: Albuterol/Ipratropium NEB.SOL* Albuterol 2.5 MG/Ipratropium 0.5 MG 3 ML INH ONE (00:10)
[2017-05-08] MEDS ORDERED: Levofloxacin 750 MG IVPREMIX(* 750 MG/150 ML BAG IVPB ONE (01:03)
[2017-05-08 01:56] LABS: Albumin 3.3 g/dL (3.2-5.2); BUN/Creatinine Ratio 7.8 (8-20); Calcium 8.2 mg/dL (8.6-10.3); EGFR African American 13.8 (>60); EGFR Non-African American 10.8 (>60); Globulin 3.2 g/dL (2-4); Total Bilirubin 0.3 mg/dL (0.2-1.0); Total Protein 6.5 g/dL (6.4-8.9)
[2017-05-08 01:58] LABS: Troponin I 0.02 ng/mL (<0.04)
[2017-05-08 02:05] LABS: Hematocrit 36 % (35-47); Hemoglobin 11.4 g/dl (12.0-16.0); Mean Corpuscular HGB Conc 32 g/dl (31-36); Mean Corpuscular Hemoglobin 32 pg (27-31); Mean Corpuscular Volume 100 fL (80-97); Mean Platelet Volume 7 um3 (7.4-10.4); Potassium 5.6 mmol/L (3.5-5.0); Red Blood Count 3.54 10^6/ul (4.0-5.4); Red Cell Distribution Width 17 % (10.5-15); White Blood Count 6.2 10^3/ul (3.5-10.8)
[2017-05-08 02:38] LABS: Urine Bacteria 1+ (Absent); Urine Bilirubin Negative (Negative); Urine Glucose Negative (Negative); Urine Nitrite Negative (Negative)
[2017-05-08] MEDS ORDERED: Dextrose 50% Syringe 50 ML* 25 GM/50 ML SYRINGE IV PUSH PRN (03:13)
[2017-05-08] MEDS ORDERED: cefTRIAXone VIAL(*) 1,000 MG in NS 0.9% 50 ML* 50 ML IVPB SCH ×2 (04:00→05:00)
[2017-05-08] MEDS ORDERED: Azithromycin IV(*) 500 MG in NS 0.9% 250 ML* 250 ML IVPB SCH ×2 (05:00→06:00)
--- NOTE | 2017-05-08 05:07 | ED ---
Avelino Monroe Alok, scribed for Owen Hunter MD on 05/08/17 at 0025 . Shortness of Breath - HPI Summary HPI Summary: 56F presents to the ED BIBA with SOB since last night and worsening this evening. Pt states her SOB worsens when laying down. Pt denies wheezing, cough, CP, fever, nausea, or diaphoresis. PMHx includes h/o renal failure currently dialysis and CHF. Pt states she is able to urinate in small amounts. Pt is currently on 4L O2. - History of Current Complaint Chief Complaint: EDRespiratoryDistress Time Seen by Provider: 05/07/17 23:39 Hx Obtained From: Patient Onset/Duration: Lasting Days, Still Present, Worse Since - This evening Timing: Constant Current Severity: Moderate Dyspnea At: Rest Aggrevating Factors: Nothing Alleviating Factors: Nothing - Allergy/Home Medications Allergies/Adverse Reactions: Allergies Allergy/AdvReac Type Severity Reaction Status Date / Time Chlorpromazine Allergy Unknown Verified 04/26/17 06:50 [From Thorazine] Reaction Details Codeine Allergy Unknown Verified 04/26/17 06:50 [From Tylenol with Codeine Reaction #3] Details Lorazepam [From Ativan] Allergy Unknown Verified 04/26/17 06:50 Reaction Details Warfarin [From Coumadin] Allergy Unknown Verified 04/26/17 06:50 Reaction Details PMH/Surg Hx/FS Hx/Imm Hx Endocrine/Hematology History: Reports: Hx Diabetes Cardiovascular History: Reports: Hx Congestive Heart Failure, Hx Coronary Artery Disease, Hx Hypercholesterolemia, Hx Hypertension, Hx Myocardial Infarction - 12 years ago, Hx Peripheral Vascular Disease, Other Cardiovascular Problems/Disorders - HEART FAILURE Denies: Hx Pacemaker/ICD Respiratory History: Reports: Hx Chronic Obstructive Pulmonary Disease (COPD) - on 2L O2 at home (pt reports not always using due to difficulty w/ O2 tank), Hx Seasonal Allergies, Hx Sleep Apnea Denies: Hx Asthma History: Reports: Hx Chronic Renal Failure, Hx Dialysis - has been on dialysis for "over a year" per patient, Hx Renal Disease Musculoskeletal History: Reports: Hx Gout, Other Musculoskeletal History - using cane Sensory History: Reports: Hx Contacts or Glasses - reading Denies: Hx Cataracts, Hx Eye Injury, Hx Eye Prosthesis, Hx Glaucoma, Hx Legally Blind, Hx Macular Degeneration, Hx Vision Problem, Hx Deafness, Hx Hearing Aid, Hx Hearing Problem, Other Sensory Impairments Opthamlomology History: Reports: Hx Contacts or Glasses - reading Denies: Hx Cataracts, Hx Eye Injury, Hx Eye Prosthesis, Hx Glaucoma, Hx Legally Blind, Hx Macular Degeneration, Hx Vision Problem, Other Sensory Impairments Psychiatric History: Reports: Hx Schizophrenia, Hx Bipolar Disorder Denies: Hx Eating Disorder - Cancer History Hx Chemotherapy: No Hx Radiation Therapy: No - Surgical History Surgery Procedure, Year, and Place: TOE AMPUTATION, OVARIAN CYST REMOVED Hx Anesthesia Reactions: No - Immunization History Date of Tetanus Vaccine: Unk Date of Influenza Vaccine: Fall 2014 Infectious Disease History: Denies: Hx Clostridium Difficile, Hx Hepatitis, Hx Human Immunodeficiency Virus (HIV), Hx of Known/Suspected MRSA, Hx Shingles, Hx Tuberculosis, History Other Infectious Disease, Traveled Outside the [place] in Last 30 Days - Family History Known Family History: Negative: Cardiac Disease, Hypertension, Diabetes, Other Family History: No FHx of breast CA - Social History Occupation: Unemployed Alcohol Use: None Hx Substance Use: No Substance Use Type: Reports: None Hx Tobacco Use: Yes Smoking Status (MU): Former Smoker Type: Cigarettes Have You Smoked in the Last Year: Yes Review of Systems Negative: Fever, Skin Diaphoresis Negative: Chest Pain Positive: Shortness Of Breath Negative: Nausea All Other Systems Reviewed And Are Negative: Yes Physical Exam - Summary Physical Exam Summary: The patient is obese in mild distress. The skin is warm and dry and skin color reflects adequate perfusion. HEENT: The head is normocephalic and atraumatic. The pupils are equal and reactive. The conjunctivae are clear and without drainage. Nares are patent and without drainage. Mouth reveals moist mucous membranes and the throat is without erythema and exudate. The external ears are intact. The ear canals are patent and without drainage. The tympanic membranes are intact. Neck is supple with full range of motion and non-tender. There are no carotid bruits. There is positive neck vein distension. Respiratory: Chest is non-tender. Positive rales diffusely throughout lung [place]. Cardiovascular: Hear is regular rate and rhythm. There is no murmur or rub auscultated. There is a positive pitting edema and pulses are symmetrical and equal. Abdomen: The abdomen is soft and non-tender. There are normal bowel sounds heard in all four quadrants and there is no organomegaly palpated. Musculoskeletal: There is no back pain noted. Extremities are non-tender with full range of motion. There is good capillary refill. There is positive pitting edema. Neurological: Patient is alert and oriented to person, place and time. The patient has symmetrical motor strength in all four extremities. Cranial nerves are grossly intact. Deep tendon reflexes are symmetrical and equal in all four extremities. Psychiatric: The patient has an appropriate affect and does not exhibit any anxiety or depression. Triage Information Reviewed: Yes Vital Signs On Initial Exam: Initial Vitals Pulse Resp Pulse Ox 73 18 100 05/07/17 23:26 05/07/17 23:26 05/07/17 23:26 Vital Signs Reviewed: Yes Diagnostics - Vital Signs Vital Signs Pulse Resp Pulse Ox 05/07/17 23:26 73 18 100 - Laboratory Lab Results: Lab Results 05/08/17 05/08/17 05/08/17 Range/Units 01:10 01:10 01:10 WBC 6.2 (3.5-10.8) 10^3/ul RBC 3.54 L (4.0-5.4) 10^6/ul Hgb 11.4 L (12.0-16.0) g/dl Hct 36 (35-47) % MCV 100 H (80-97) fL MCH 32 H (27-31) pg MCHC 32 (31-36) g/dl RDW 17 H (10.5-15) % Plt Count 192 (150-450) 10^3/ul MPV 7 L (7.4-10.4) um3 Neut % (Auto) 61.6 (38-83) % Lymph % (Auto) 25.9 (25-47) % [place] % (Auto) 9.8 H (1-9) % Eos % (Auto) 2.2 (0-6) % Baso % (Auto) 0.5 (0-2) % Absolute Neuts (auto) 3.8 (1.5-7.7) 10^3/ul Absolute Lymphs (auto) 1.6 (1.0-4.8) 10^3/ul Absolute Monos (auto) 0.6 (0-0.8) 10^3/ul Absolute Eos (auto) 0.1 (0-0.6) 10^3/ul Absolute Basos (auto) 0 (0-0.2) 10^3/ul Absolute Nucleated RBC 0 10^3/ul Nucleated RBC % 0 Sodium 124 L (133-145) mmol/L Potassium 5.6 H (3.5-5.0) mmol/L Chloride 90 L (101-111) mmol/L Carbon Dioxide 28 (22-32) mmol/L Anion Gap 6 (2-11) mmol/L BUN 33 H (6-24) mg/dL Creatinine 4.24 H (0.51-0.95) mg/dL Est GFR ( Amer) 13.8 (>60) Est GFR (Non-Af Amer) 10.8 (>60) BUN/Creatinine Ratio 7.8 L (8-20) Glucose 92 (70-100) mg/dL Calcium 8.2 L (8.6-10.3) mg/dL Total Bilirubin 0.30 (0.2-1.0) mg/dL AST 17 (13-39) U/L ALT 9 (7-52) U/L Alkaline Phosphatase 62 (34-104) U/L Troponin I 0.02 (<0.04) ng/mL B-Natriuretic Peptide 1042 H ( - 100) pg/mL Total Protein 6.5 (6.4-8.9) g/dL Albumin 3.3 (3.2-5.2) g/dL Globulin 3.2 (2-4) g/dL Albumin/Globulin Ratio 1.0 (1-3) Urine Color Urine Appearance Urine pH (5-9) Ur Specific [place] (1.010-1.030) Urine Protein (Negative) Urine Ketones (Negative) Urine Blood (Negative) Urine Nitrate (Negative) Urine Bilirubin (Negative) Urine Urobilinogen (Negative) Ur Leukocyte Esterase (Negative) Urine WBC (Auto) (Absent) Urine RBC (Auto) (Absent) Ur Squamous Epith Cells (Absent) Urine Bacteria (Absent) Urine Glucose (Negative) 05/08/17 Range/Units 02:15 WBC (3.5-10.8) 10^3/ul RBC (4.0-5.4) 10^6/ul Hgb (12.0-16.0) g/dl Hct (35-47) % MCV (80-97) fL MCH (27-31) pg MCHC (31-36) g/dl RDW (10.5-15) % Plt Count (150-450) 10^3/ul MPV (7.4-10.4) um3 Neut % (Auto) (38-83) % Lymph % (Auto) (25-47) % [place] % (Auto) (1-9) % Eos % (Auto) (0-6) % Baso % (Auto) (0-2) % Absolute Neuts (auto) (1.5-7.7) 10^3/ul Absolute Lymphs (auto) (1.0-4.8) 10^3/ul Absolute Monos (auto) (0-0.8) 10^3/ul Absolute Eos (auto) (0-0.6) 10^3/ul Absolute Basos (auto) (0-0.2) 10^3/ul Absolute Nucleated RBC 10^3/ul Nucleated RBC % Sodium (133-145) mmol/L Potassium (3.5-5.0) mmol/L Chloride (101-111) mmol/L Carbon Dioxide (22-32) mmol/L Anion Gap (2-11) mmol/L BUN (6-24) mg/dL Creatinine (0.51-0.95) mg/dL Est GFR ( Amer) (>60) Est GFR (Non-Af Amer) (>60) BUN/Creatinine Ratio (8-20) Glucose (70-100) mg/dL Calcium (8.6-10.3) mg/dL Total Bilirubin (0.2-1.0) mg/dL AST (13-39) U/L ALT (7-52) U/L Alkaline Phosphatase (34-104) U/L Troponin I (<0.04) ng/mL B-Natriuretic Peptide ( - 100) pg/mL Total Protein (6.4-8.9) g/dL Albumin (3.2-5.2) g/dL Globulin (2-4) g/dL Albumin/Globulin Ratio (1-3) Urine Color Yellow Urine Appearance Clear Urine pH 7.0 (5-9) Ur Specific [place] 1.009 L (1.010-1.030) Urine Protein 3+(>=500 mg/dl) H (Negative) Urine Ketones Negative (Negative) Urine Blood Negative (Negative) Urine Nitrate Negative (Negative) Urine Bilirubin Negative (Negative) Urine Urobilinogen Negative (Negative) Ur Leukocyte Esterase Trace H (Negative) Urine WBC (Auto) Trace(0-5/hpf) (Absent) Urine RBC (Auto) Trace(0-2/hpf) (Absent) Ur Squamous Epith Cells Present H (Absent) Urine Bacteria 1+ H (Absent) Urine Glucose Negative (Negative) Result Diagrams: 05/08/17 01:10 05/08/17 01:10 Lab Statement: Any lab studies that have been ordered have been reviewed, and results considered in the medical decision making process. - Radiology CXR Xray Interpretation: Positive (See Comments) - Probable right lower lobe infiltrate Radiology Interpretation Completed By: ED Physician - Dr. Hunter - EKG 0040 Cardiac Rate: NL - 68 bpm EKG Rhythm: Sinus Rhythm EKG Interpretation: Normal [place]. No ST elevation Course/Dx - Course Course Of Treatment: 56 y/o female BIBA presents with SOB currently on 4L O2. PT was given 2 breathing treatments and had blood work, EKG and CXR done. CXR shows probable right lower lobe infiltrate. Did not give IV fluids due to h/o renal failure and CHF. Spoke with Dr. Tee who will admit pt for PNA treatment. - Diagnoses Differential Diagnosis/HQI/PQRI: Positive: CHF, COPD Exacerbation, [place], Pneumonia , Other Provider Diagnoses: PNA (pneumonia) - Physician Notifications Discussed Care of Patient With: Asaf Tee - Will admit to [facility] [place] Time Discussed With Above Provider: 02:31 Discharge - Discharge Plan Condition: Stable Disposition: ADMITTED TO [facility] The documentation as recorded by the Avelino echavarria Alok accurately reflects the service I personally performed and the decisions made by Elsa estes Drew, MD.
[2017-05-08] MEDS ORDERED: Heparin VIAL(*) 5000 UNITS/ML VIAL (FIVE THOUSAND) SUBCUT SCH (06:00)
[2017-05-08] MEDS ORDERED: Insulin LISPRO* 1 UNITS UNIT SUBCUT SCH (07:30)
--- NOTE | 2017-05-08 07:40 | RAD ---
INDICATION: Shortness of breath. COMPARISON: Chest x-ray dated April 26, 2017 TECHNIQUE: PA and lateral views of the chest were obtained. FINDINGS: The heart and mediastinum are normal in size and contour. The lungs are grossly clear. There is obscuration of the left hemidiaphragm and left costophrenic angle more pronounced on the lateral view image. Visualized bones are normal for the patient's age. There is no radiographic evidence of free air beneath the diaphragm IMPRESSION: SMALL LEFT LUNG PLEURAL EFFUSION.
[2017-05-08 07:53] VITALS: BP 125/67
[2017-05-08 08:13] LABS: C Reactive Protein 6.86 mg/L (< 5.00)
--- NOTE | 2017-05-08 10:12 | HP ---
CC: Dr. Henning; Dr. Atkins * HISTORY AND PHYSICAL: DATE OF ADMISSION: 05/08/17 CHIEF COMPLAINT: Shortness of breath. HISTORY OF PRESENT ILLNESS: The patient is a 56-year-old woman who says last night about 9:20 p.m. when she was lying in bed and all of a sudden got short of breath. She denied any chest pain. She denied any cough or wheezing. She denied any fever or chills. She sat up immediately and called the ambulance. She feels much better now. She said the shortness of breath is increased when she lays back down. She denies any recent weight gain. She does have some swelling in her legs. She is due for dialysis today. In the ER, the patient was evaluated and there is concern about a possible right lower lobe pneumonia. PAST MEDICAL HISTORY: The patient has a past medical history significant for end- stage renal disease, coronary artery disease, peripheral arterial disease, hypertension, hyperlipidemia, type 2 diabetes, gout, schizoaffective disorder bipolar type, COPD. CURRENT MEDICATIONS: Her current medication list is being updated. She does not know it and we will have to call the pharmacy today. ALLERGIES: She has allergy/adverse reaction to ATIVAN, THORAZINE, COUMADIN, and CODEINE. FAMILY HISTORY: Father of coronary artery disease. SOCIAL HISTORY: Ex-tobacco. She lives alone. She says her healthcare proxy is , her sister, Aliyah Clement. REVIEW OF SYSTEMS: A 14-point review of systems was completed with the patient. All pertinent positives and negative are in the history of present illness, otherwise it is negative. PHYSICAL EXAMINATION GENERAL: Pleasant woman lying in bed, in no acute distress. VITAL SIGNS: Temperature 97.5 degrees, heart rate 66 beats per minute, respiratory rate 19 breaths per minute, pulse oximetry 98%, blood pressure 150/ 76. HEENT: Normocephalic and atraumatic. Pupils are equal, round and reactive to light. Moist mucous membranes. NECK: Supple. No JVD, bruits, palpable thyroid or lymphadenopathy. CHEST: Clear to auscultation and percussion bilaterally. CARDIOVASCULAR: S1, S2 appreciated. Regular rate and rhythm. No murmurs, gallops, or rubs. ABDOMEN: Positive bowel sounds in all 4 quadrants. Soft, nontender, and nondistended. No hepatosplenomegaly. EXTREMITIES: No cyanosis, clubbing, or edema. +2 pulses bilaterally. NEUROLOGIC: Alert and oriented x3. Moves all extremities. SKIN: No rashes or abnormalities. LABORATORY DATA: White count 6.2, hemoglobin 11.4, hematocrit 36, and platelets 192. Sodium 124, potassium 5.6, chloride 90, CO2 of 28, BUN 33, creatinine 4.24, glucose 92. BNP 1042. UA is unremarkable. Chest x-ray shows questionable possible right lower lobe infiltrate. EKG shows normal sinus rhythm at 68 beats per minute, normal axis, no acute ST- T wave changes. ASSESSMENT AND PLAN: 1. Shortness of breath. I think it might be from volume overload, and she is due for dialysis today. Her BNP, although elevated, is not elevated as it has been in the past. She is already feeling better. I think she will improve with simple dialysis. She got no signs or symptoms consistent with pneumonia. The x-ray is of some concern. I will put her on Rocephin and Zithromax for now. Check sputum culture and sensitivity, urine for legionella and pneumococcal antigen. However, if she feels much better after dialysis today, she might be able to even go home. 2. Peripheral artery disease. Continue Plavix, which I think she is likely on , but await confirmation. 3. End-stage renal disease. Continue dialysis; she is due today. 4. Type [address] finger[address]icks, sliding scale insulin. 5. Chronic obstructive pulmonary disease. Stable. Monitor. Await the patient 's medications to give approximate dosing. 6. DVT prophylaxis. Heparin subcu. 7. The patient is a full code. TIME SPENT: Over 75 minutes were spent on this H and P, more than 40 minutes of which were spent in direct [id number] contact with the patient in evaluation, physical exam, counseling, and coordination of care. [id number]/[facility] #: [id number] A.[facility]. [facility]IAL HOSPITALSusie
--- NOTE | 2017-05-08 17:20 | DS ---
CC: Dr. Fe Atkins; Dr. Henning; Dr. Montez, Dr. Hodgson * DISCHARGE SUMMARY: DATE OF ADMISSION: 05/08/17 DATE OF DISCHARGE: 05/08/17 PRIMARY CARE PHYSICIAN: Dr. Fe Atikns. DISCHARGE DIAGNOSIS: Shortness of breath due to fluid overload in a patient who needs dialysis. SECONDARY DIAGNOSES: 1. History of atrial fibrillation, currently in sinus rhythm. 2. Endstage renal disease, on dialysis Mondays, Wednesdays and Fridays. Somehow, patient stated that her dialysis was rescheduled from Friday to this week and she missed it and did not receive it on the day that she usually gets it, which is Friday. 3. History of peripheral vascular disease. 4. History of chronic obstructive pulmonary disease, on oxygen at home at 2 L. 5. Hypertension. 6. Diabetes, type 2. 7. Hyperlipidemia. 8. History of gout. 9. History of schizoaffective disorder, bipolar type. MEDICATIONS ON DISCHARGE: Unchanged from admission. Her home medications include, 1. Insulin Lispro sliding scale. 2. Albuterol inhaler 2 puffs every 4 hours p.r.n. 3. DuoNeb on a p.r.n. basis. 4. Allopurinol 100 mg daily. 5. Aspirin 81 mg daily. 6. Atenolol 100 mg daily in a.m. and 50 mg q. p.m. 7. Vitamin B complex one capsule daily. 8. Tessalon Perles 100 mg t.i.d. p.r.n. 9. Symbicort 150/12.5 two puffs b.i.d. 10. Plavix 75 mg once daily. 11. Depakote ER 500 mg 2 times a day. 12. Colace 100 mg daily. 13. Doxazosin 4 mg daily. 14. Insulin Lantus 25 units daily. 15. Imdur 30 mg daily. 16. Loratadine 10 mg daily. 17. Nitroglycerin on a p.r.n. pain. 18. MiraLAX 1 packet daily p.r.n. 19. Risperdal 4 mg daily. 20. Renvela 800 mg 2 times a day with meals. 21. Sodium polystyrene 15 g daily p.r.n. 22. Norvasc 5 mg daily. 23. Atarax 10 mg t.i.d. p.r.n. LABORATORY DATA: For laboratory data please see history and physical. The patient did not have any new labs prior to discharge. HOSPITALIZATION COURSE: Laura Tomas is a 56-year-old female with history of schizoaffective disorder who lives alone and her normal dialysis days are Mondays, Wednesdays and Fridays. The patient stated that on her dialysis on Friday, she was told that due to scheduling reasons she needs to have dialysis on not on Friday. On Friday night, she started developing shortness of breath and she came into the ED for evaluation. Here she was noted to be hyponatremic with mild hyperkalemia. Her chest x-ray showed small left lung pleural effusion. Her C-reactive protein was 6.8. Her brain natriuretic peptide was 1042. She was noted to be in fluid overload due to need of dialysis in this endstage renal dialysis patient. It appears that due to her dialysis being postponed by 24 hours. She became symptomatic. I discussed the case with Dr. Henning. At this point, the best option is for the patient to be discharged to outpatient dialysis unit. The patient is to be dialyzed at 11 a.m. today right after discharge. Then most likely she is going to be transported home. PHYSICAL EXAM AT THE TIME OF DISCHARGE: Blood pressure 125/67, heart rate of 73 and regular, respiratory rate 15, oxygen saturation 99% on 2 L of oxygen via nasal cannula, temperature 97.3. General: This is a very pleasant 56-year-old female who is in no acute distress. The patient is a rather poor historian but she is oriented x3. She has a slightly dysarthric speech, which is chronic. HEENT: Head is atraumatic, normocephalic. Eyes: Pupils equal and reactive to light and accommodation. Oropharynx clear. Mucosa moist. Neck: Supple. No JVD. No bruits bilaterally. Cardiovascular: Regular rate and rhythm. No murmurs. Respiratory: Distant breath sounds at bilateral bases with crackles in the bilateral bases. Abdomen: Distended, soft, nontender. Bowel sounds present in all 4 quadrants. Extremities: There is trace bilateral pedal edema. +2 pulses bilaterally. No clubbing or cyanosis. The patient has dialysis fistula in the left forearm with a positive thrill. Neuro: Slightly dysarthric speech. Cranial nerves II through XII grossly intact. Motor strength is 5/5 bilaterally. RECOMMENDATIONS: At discharge, the patient is recommended, 1. To followup with Dr. Atkins in approximately 4 to 7 days. 2. To have an outpatient dialysis right after discharge today. The patient is going to be transported from the inpatient unit to outpatient dialysis today after discharge. Please note this is a short summary of the patient's hospitalization stay. Please refer to further medical records for details. [id number]/[facility] #: [id number] MTDD
== END 2017-05-08 10:40 | disposition home or self-care (01) ==
LOC: ED 23:17 → MED 05-08 03:13
PROVIDERS: ADMIT Internal Medicine; ATTEND Internal Medicine
DX: R06.02 Shortness of breath (principal); E87.79 Other fluid overload; I12.0 Hypertensive chronic kidney disease with stage 5 chronic kidney disease or end stage renal disease; E11.22 Type 2 diabetes mellitus with diabetic chronic kidney disease; N18.6 End stage renal disease; Z99.2 Dependence on renal dialysis; I48.91 Unspecified atrial fibrillation; Z79.01 Long term (current) use of anticoagulants; I73.9 Peripheral vascular disease, unspecified; J44.9 Chronic obstructive pulmonary disease, unspecified; E78.5 Hyperlipidemia, unspecified; M10.9 Gout, unspecified; F25.0 Schizoaffective disorder, bipolar type; Z79.899 Other long term (current) drug therapy; Z79.4 Long term (current) use of insulin; Z88.8 Allergy status to other drugs, medicaments and biological substances; Z88.1 Allergy status to other antibiotic agents; Z87.891 Personal history of nicotine dependence
CPT/HCPCS: 36415; 71020; 80053; 81003; 81015; 83880; 84484; 85025; 86140; 87040; 87086; 87899; 93005; 94640; 94760; 96365; 96367; 99285; A9270-GY; G0378; J0456; J0696; J1644

== ENCOUNTER 2017-05-11 11:38 | Emergency (ER) | payer OTHER ==
[2017-05-11] MEDS ORDERED: Albuterol/Ipratropium NEB.SOL* Albuterol 2.5 MG/Ipratropium 0.5 MG 3 ML INH ONE (12:57)
--- NOTE | 2017-05-11 13:33 | RAD ---
INDICATION: 2 weeks of shortness of breath COMPARISON: Most recent comparison chest x-rays dated May 08, 2017 TECHNIQUE: PA and lateral views of the chest were obtained. FINDINGS: The heart and mediastinum are normal in size and contour. The degree of faint bibasilar reticulonodular densities is not significantly changed in the previous chest x-ray with the exception of a linear density identified at the left lung base. Otherwise the lungs are grossly clear. There is no evidence of large pleural effusion. Visualized bones are normal for the patient's age. There is no radiographic evidence of free air beneath the diaphragm IMPRESSION: IN THE CORRECT CLINICAL SETTING THIS CHEST X-RAY FINDINGS COULD REPRESENT MILD CARDIOGENIC PULMONARY EDEMA POTENTIALLY WITH ATELECTASIS AT THE LEFT LUNG BASE.
[2017-05-11 14:10] LABS: Hematocrit 36 % (35-47); Hemoglobin 11.6 g/dl (12.0-16.0); Mean Corpuscular HGB Conc 32 g/dl (31-36); Mean Corpuscular Hemoglobin 33 pg (27-31); Mean Corpuscular Volume 100 fL (80-97); Mean Platelet Volume 7 um3 (7.4-10.4); Red Blood Count 3.57 10^6/ul (4.0-5.4); Red Cell Distribution Width 16 % (10.5-15); White Blood Count 6.6 10^3/ul (3.5-10.8)
[2017-05-11 14:24] LABS: ALT 9 U/L (7-52); Albumin 3.2 g/dL (3.2-5.2); Alkaline Phosphatase 61 U/L (34-104); Blood Urea Nitrogen 20 mg/dL (6-24); CO2 Carbon Dioxide 31 mmol/L (22-32); Calcium 8.1 mg/dL (8.6-10.3); Chloride 94 mmol/L (101-111); EGFR African American 18.1 (>60); EGFR Non-African American 14.1 (>60); Globulin 3.1 g/dL (2-4); Glucose 135 mg/dL (70-100); Sodium 130 mmol/L (133-145); Total Protein 6.3 g/dL (6.4-8.9)
[2017-05-11 14:25] LABS: Troponin I 0.01 ng/mL (<0.04)
[2017-05-11 14:34] LABS: Anion Gap 5 mmol/L (2-11)
[2017-05-11 15:06] VITALS: BP 108/56
--- NOTE | 2017-05-11 18:39 | ED ---
Celi Monroe Thomas, scribed for Marcos Sims MD on 05/11/17 at 1309 . Shortness of Breath - HPI Summary HPI Summary: The pt is a 56 y/o F BIBA c/o SOB that began today at 09:30 when she woke up. She also had hemodialysis yesterday. The SOB is constant. She did not use her inhalers or nebulizer at home (she states that I forgot). Nothing alleviates or aggravates her SOB. Pt additionally c/o CP (tightness) and chest congestion. PMHx: DM, CHF, HTN, CAD, UT (12 years ago), COPD, CRF, on hemodialysis. PSHx: toe amputation, ovarian cyst removed. SHx: former smoker, no alcohol, no drugs. - History of Current Complaint Chief Complaint: EDShortnessOfBreath Time Seen by Provider: 05/11/17 13:06 Hx Obtained From: Patient Onset/Duration: Sudden Onset - when she woke up, Lasting Hours - 09:30 today, Still Present Timing: Constant Current Severity: Moderate Aggrevating Factors: Nothing Alleviating Factors: Nothing Associated Signs & Symptoms: Chest Pain Unrelated to Cough - Allergy/Home Medications Allergies/Adverse Reactions: Allergies Allergy/AdvReac Type Severity Reaction Status Date / Time Chlorpromazine Allergy Unknown Verified 05/11/17 12:02 [From Thorazine] Reaction Details Codeine Allergy Unknown Verified 05/11/17 12:02 [From Tylenol with Codeine Reaction #3] Details Lorazepam [From Ativan] Allergy Unknown Verified 05/11/17 12:02 Reaction Details Warfarin [From Coumadin] Allergy Unknown Verified 05/11/17 12:02 Reaction Details PMH/Surg Hx/FS Hx/Imm Hx Previously Healthy: No Endocrine/Hematology History: Reports: Hx Diabetes Cardiovascular History: Reports: Hx Congestive Heart Failure, Hx Coronary Artery Disease, Hx Hypercholesterolemia, Hx Hypertension, Hx Myocardial Infarction - 12 years ago, Hx Peripheral Vascular Disease, Other Cardiovascular Problems/Disorders - HEART FAILURE Denies: Hx Pacemaker/ICD Respiratory History: Reports: Hx Chronic Obstructive Pulmonary Disease (COPD) - on 2L O2 at home (pt reports not always using due to difficulty w/ O2 tank), Hx Seasonal Allergies, Hx Sleep Apnea Denies: Hx Asthma History: Reports: Hx Chronic Renal Failure, Hx Dialysis - has been on dialysis for "over a year" per patient, Hx Renal Disease Musculoskeletal History: Reports: Hx Gout, Other Musculoskeletal History - using cane Sensory History: Reports: Hx Contacts or Glasses - reading Denies: Hx Cataracts, Hx Eye Injury, Hx Eye Prosthesis, Hx Glaucoma, Hx Legally Blind, Hx Macular Degeneration, Hx Vision Problem, Hx Deafness, Hx Hearing Aid, Hx Hearing Problem, Other Sensory Impairments Opthamlomology History: Reports: Hx Contacts or Glasses - reading Denies: Hx Cataracts, Hx Eye Injury, Hx Eye Prosthesis, Hx Glaucoma, Hx Legally Blind, Hx Macular Degeneration, Hx Vision Problem, Other Sensory Impairments Psychiatric History: Reports: Hx Schizophrenia, Hx Bipolar Disorder Denies: Hx Eating Disorder - Cancer History Hx Chemotherapy: No Hx Radiation Therapy: No - Surgical History Surgery Procedure, Year, and Place: TOE AMPUTATION, OVARIAN CYST REMOVED Hx Anesthesia Reactions: No - Immunization History Date of Tetanus Vaccine: Unk Date of Influenza Vaccine: Fall 2014 Infectious Disease History: Yes Infectious Disease History: Denies: Hx Clostridium Difficile, Hx Hepatitis, Hx Human Immunodeficiency Virus (HIV), Hx of Known/Suspected MRSA, Hx Shingles, Hx Tuberculosis, History Other Infectious Disease, Traveled Outside the [place] in Last 30 Days - Family History Known Family History: Negative: Cardiac Disease, Hypertension, Diabetes, Other Family History: No FHx of breast CA - Social History Alcohol Use: None Hx Substance Use: No Substance Use Type: Reports: None Hx Tobacco Use: Yes Smoking Status (MU): Former Smoker Type: Cigarettes Have You Smoked in the Last Year: Yes Review of Systems Constitutional: Negative Negative: Fever Eyes: Negative ENT: Negative Positive: Chest Pain - tightness, Other - POS: chest congestion Positive: Shortness Of Breath - that began today at 09:30, constant Gastrointestinal: Negative Genitourinary: Negative Musculoskeletal: Negative Skin: Negative Neurological: Negative Psychological: Normal All Other Systems Reviewed And Are Negative: Yes Physical Exam - Summary Physical Exam Summary: VITAL SIGNS: Reviewed. GENERAL: ~Patient is a well-developed and nourished female who is lying comfortable in the stretcher. ~Patient is not in any acute respiratory distress. HEAD AND FACE: No signs of trauma. ~No ecchymosis, hematomas or skull depressions. No sinus tenderness. EYES: PERRLA, EOMI x 2, No injected conjunctiva, no nystagmus. EARS: Hearing grossly intact. Ear canals and tympanic membranes are within normal limits. MOUTH: Oropharynx within normal limits. NECK: Supple, trachea is midline, no adenopathy, no JVD, no carotid bruit, no c- spine tenderness, neck with full ROM. CHEST: Symmetric, no tenderness at palpation LUNGS: Clear to auscultation bilaterally. No wheezing or crackles. CVS: Regular rate and rhythm, S1 and S2 present, no murmurs or gallops appreciated. ABDOMEN: Soft, non-tender. No signs of distention. No rebound no guarding, and no masses palpated. Bowel sounds are normal. EXTREMITIES: On her R foot she has 3 toes amputated. FROM in all major joints, no edema, no cyanosis or clubbing. NEURO: Alert and oriented x 3. No acute neurological deficits. Speech is normal and follows commands. SKIN: Dry and warm Triage Information Reviewed: Yes Vital Signs On Initial Exam: Initial Vitals Temp Pulse Resp BP Pulse Ox 98.4 F 72 20 156/87 100 05/11/17 11:52 05/11/17 11:52 05/11/17 11:52 05/11/17 11:52 05/11/17 11:52 Vital Signs Reviewed: Yes - Manny Coma Scale Coma Scale Total: 15 Diagnostics - Vital Signs Vital Signs Temp Pulse Resp BP Pulse Ox 05/11/17 12:00 71 166/77 100 05/11/17 11:55 98.4 F 72 20 156/87 100 05/11/17 11:54 74 100 05/11/17 11:53 156/87 05/11/17 11:52 98.4 F 72 20 156/87 100 - Laboratory Lab Results: Lab Results 05/11/17 05/11/17 05/11/17 Range/Units 13:50 13:50 13:50 WBC 6.6 (3.5-10.8) 10^3/ul RBC 3.57 L (4.0-5.4) 10^6/ul Hgb 11.6 L (12.0-16.0) g/dl Hct 36 (35-47) % MCV 100 H (80-97) fL MCH 33 H (27-31) pg MCHC 32 (31-36) g/dl RDW 16 H (10.5-15) % Plt Count 168 (150-450) 10^3/ul MPV 7 L (7.4-10.4) um3 Neut % (Auto) 64.4 (38-83) % Lymph % (Auto) 23.3 L (25-47) % [place] % (Auto) 10.8 H (1-9) % Eos % (Auto) 1.0 (0-6) % Baso % (Auto) 0.5 (0-2) % Absolute Neuts (auto) 4.3 (1.5-7.7) 10^3/ul Absolute Lymphs (auto) 1.5 (1.0-4.8) 10^3/ul Absolute Monos (auto) 0.7 (0-0.8) 10^3/ul Absolute Eos (auto) 0.1 (0-0.6) 10^3/ul Absolute Basos (auto) 0 (0-0.2) 10^3/ul Absolute Nucleated RBC 0.01 10^3/ul Nucleated RBC % 0.1 Sodium 130 L (133-145) mmol/L Potassium TNP Chloride 94 L (101-111) mmol/L Carbon Dioxide 31 (22-32) mmol/L Anion Gap 5 (2-11) mmol/L BUN 20 (6-24) mg/dL Creatinine 3.35 H (0.51-0.95) mg/dL Est GFR ( Amer) 18.1 (>60) Est GFR (Non-Af Amer) 14.1 (>60) BUN/Creatinine Ratio 6.0 L (8-20) Glucose 135 H (70-100) mg/dL Lactic Acid 2.6 H* (0.5-2.0) mmol/L Calcium 8.1 L (8.6-10.3) mg/dL Total Bilirubin 0.20 (0.2-1.0) mg/dL AST TNP ALT 9 (7-52) U/L Alkaline Phosphatase 61 (34-104) U/L Troponin I 0.01 (<0.04) ng/mL B-Natriuretic Peptide ( - 100) pg/mL Total Protein 6.3 L (6.4-8.9) g/dL Albumin 3.2 (3.2-5.2) g/dL Globulin 3.1 (2-4) g/dL Albumin/Globulin Ratio 1.0 (1-3) 07/30/17 Range/Units 13:50 WBC (3.5-10.8) 10^3/ul RBC (4.0-5.4) 10^6/ul Hgb (12.0-16.0) g/dl Hct (35-47) % MCV (80-97) fL MCH (27-31) pg MCHC (31-36) g/dl RDW (10.5-15) % Plt Count (150-450) 10^3/ul MPV (7.4-10.4) um3 Neut % (Auto) (38-83) % Lymph % (Auto) (25-47) % [place] % (Auto) (1-9) % Eos % (Auto) (0-6) % Baso % (Auto) (0-2) % Absolute Neuts (auto) (1.5-7.7) 10^3/ul Absolute Lymphs (auto) (1.0-4.8) 10^3/ul Absolute Monos (auto) (0-0.8) 10^3/ul Absolute Eos (auto) (0-0.6) 10^3/ul Absolute Basos (auto) (0-0.2) 10^3/ul Absolute Nucleated RBC 10^3/ul Nucleated RBC % Sodium (133-145) mmol/L Potassium Chloride (101-111) mmol/L Carbon Dioxide (22-32) mmol/L Anion Gap (2-11) mmol/L BUN (6-24) mg/dL Creatinine (0.51-0.95) mg/dL Est GFR ( Amer) (>60) Est GFR (Non-Af Amer) (>60) BUN/Creatinine Ratio (8-20) Glucose (70-100) mg/dL Lactic Acid (0.5-2.0) mmol/L Calcium (8.6-10.3) mg/dL Total Bilirubin (0.2-1.0) mg/dL AST ALT (7-52) U/L Alkaline Phosphatase (34-104) U/L Troponin I (<0.04) ng/mL B-Natriuretic Peptide 1998 H ( - 100) pg/mL Total Protein (6.4-8.9) g/dL Albumin (3.2-5.2) g/dL Globulin (2-4) g/dL Albumin/Globulin Ratio (1-3) Result Diagrams: 05/11/17 13:50 05/11/17 13:50 Lab Statement: Any lab studies that have been ordered have been reviewed, and results considered in the medical decision making process. - Radiology CXR Xray Interpretation: Positive (See Comments) - IN THE CORRECT CLINICAL SETTING THIS CHEST X-RAY FINDINGS COULD REPRESENT MILD CARDIOGENIC PULMONARY EDEMA POTENTIALLY WITH ATELECTASIS AT THE LEFT LUNG BASE. Radiology Interpretation Completed By: Radiologist - EKG 13:28 Cardiac Rate: NL - 69 bpm EKG Interpretation: A-Fib. No ST elevations. Course/Dx - Course Assessment/Plan: The pt is a 56 y/o F BIBA c/o SOB that began today at 09:30 when she woke up. She also had hemodialysis yesterday. The SOB is constant. She did not use her inhalers or nebulizer at home (she states that I forgot). Nothing alleviates or aggravates her SOB. Pt additionally c/o CP (tightness) and chest congestion. PMHx: DM, CHF, HTN, CAD, [place] (12 years ago), COPD, CRF, on hemodialysis. PSHx: toe amputation, ovarian cyst removed. SHx: former smoker, no alcohol, no drugs. Test results are at her baseline. The patients BNP is 1098 and is consistent with current end-stage renal disease. The patient will have dialysis tomorrow scheduled. The patient was given 1 dose of Duoneb before I saw her, and all symptoms are resolved. The patient is ambulating without SOB. There is not complaints of CP, productive cough, fevers, or chills. Her CXR is consistent with pulmonary congestion and edema. Since the patients SOB is resolved, and she will have dialysis tomorrow the patient will be discharged home with follow-up by her primary care provider. She is alert and oriented and hemodynamically stable. I discussed all the findings and test results with the patient. Patient was instructed to return to the emergency room immediately if any of the symptoms return or worsens. Plan of care was discussed with the patient and understands and agrees. All questions were answered at patient satisfaction. There were no further complaints or concerns. Lung exam before discharge: CTA B/L. Good air exchange. No wheezing or crackles heard. CVS: S1 and S2 present. No murmurs appreciated. Patient is alert and oriented x 3. Patient is hemodynamically stable. Patient will be discharged home with follow up PCP in the next 2-3 days - Diagnoses Differential Diagnosis/HQI/PQRI: Positive: Bronchitis, CHF, Chest Wall Pain, COPD Exacerbation, Pneumonia, Pneumothorax, Unstable Angina Provider Diagnoses: COPD (chronic obstructive pulmonary disease), Dyspnea Discharge - Discharge Plan Condition: Stable Disposition: HOME Patient Education Materials: COPD (Chronic Obstructive Pulmonary Disease) (ED) , Dyspnea (ED) Referrals: Fe Atkins MD [Primary Care Provider] - 3 Days The documentation as recorded by the Celi echavarria Thomas accurately reflects the service I personally performed and the decisions made by Levi estes Walter, MD.
== END 2017-05-11 15:05 | disposition home or self-care (01) ==
LOC: ED 11:38
DX: R06.00 Dyspnea, unspecified (principal); J44.9 Chronic obstructive pulmonary disease, unspecified; I13.0 Hypertensive heart and chronic kidney disease with heart failure and stage 1 through stage 4 chronic kidney disease, or unspecified chronic kidney disease; E11.22 Type 2 diabetes mellitus with diabetic chronic kidney disease; N18.9 Chronic kidney disease, unspecified; I50.9 Heart failure, unspecified; Z99.2 Dependence on renal dialysis; I25.2 Old myocardial infarction; I25.10 Atherosclerotic heart disease of native coronary artery without angina pectoris; Z88.8 Allergy status to other drugs, medicaments and biological substances; Z88.5 Allergy status to narcotic agent; Z87.891 Personal history of nicotine dependence; I48.91 Unspecified atrial fibrillation
CPT/HCPCS: 36415; 71020; 80053; 83605; 83880; 84484; 85025; 93005; 94640; 99285; A9270-GY

== ENCOUNTER 2017-05-24 12:08 | Inpatient (IN) | payer OTHER ==
[2017-05-24] MEDS ORDERED: methylPREDNISolone 125 MG* 2 ML VIAL IV ONE (12:22)
[2017-05-24] MEDS ORDERED: Albuterol/Ipratropium NEB.SOL* Albuterol 2.5 MG/Ipratropium 0.5 MG 3 ML ONE (12:26)
[2017-05-24] MEDS: Albuterol/Ipratropium NEB.SOL* Albuterol 2.5 MG/Ipratropium 0.5 MG 3 ML INH SCH ×3 (12:30→16:29)
[2017-05-24 12:51] LABS: FIO2 6
[2017-05-24 13:01] LABS: PCO2 Arterial 75 mmHg (35-45)
[2017-05-24 13:18] LABS: Hematocrit 35 % (35-47); Hemoglobin 11.7 g/dl (12.0-16.0); Mean Corpuscular HGB Conc 33 g/dl (31-36); Mean Corpuscular Hemoglobin 33 pg (27-31); Mean Corpuscular Volume 99 fL (80-97); Mean Platelet Volume 8 um3 (7.4-10.4); Red Blood Count 3.58 10^6/ul (4.0-5.4); Red Cell Distribution Width 16 % (10.5-15); White Blood Count 10.1 10^3/ul (3.5-10.8)
[2017-05-24 13:41] LABS: ALT 16 U/L (7-52); Alkaline Phosphatase 74 U/L (34-104); BUN/Creatinine Ratio 6.9 (8-20); Blood Urea Nitrogen 21 mg/dL (6-24); CO2 Carbon Dioxide 32 mmol/L (22-32); Chloride 91 mmol/L (101-111); EGFR African American 20.4 (>60); EGFR Non-African American 15.8 (>60); Globulin 4.1 g/dL (2-4); Glucose 140 mg/dL (70-100); Sodium 128 mmol/L (133-145); Total Protein 8.1 g/dL (6.4-8.9); Troponin I 0.02 ng/mL (<0.04)
[2017-05-24 13:56] LABS: Anion Gap 5 mmol/L (2-11)
--- NOTE | 2017-05-24 15:00 | RAD ---
Indication: Shortness of breath. Single frontal view of the chest performed at 1427 hours was reviewed. Comparison is made with previous exam dated May 11, 2017. Cardiomegaly is noted. Lung cedillo appear hyperinflated. No definite pleural fluid, pneumonia or pneumothorax is noted. IMPRESSION: CARDIOMEGALY WITH NO ACTIVE CARDIOPULMONARY DISEASE.
[2017-05-24] MEDS ORDERED: Polyethylene Glycol 3350 BTL* 238 GM BTL PO PRN (15:22)
[2017-05-24] MEDS ORDERED: Nitroglycerin TAB 0.4 MG* 0.4 MG TAB SL PRN (15:22)
[2017-05-24] MEDS ORDERED: Dextrose 50% Syringe 50 ML* 25 GM/50 ML SYRINGE IV PUSH PRN (15:29)
[2017-05-24] MEDS ORDERED: Polyethylene Glycol 3350* 17 GM PACKET PO PRN (17:37)
--- NOTE | 2017-05-24 17:42 | ED ---
Celi Monroe Thomas, scribed for Marcos Sims MD on 05/24/17 at 1220 . Shortness of Breath - HPI Summary HPI Summary: The pt is a 56 y/o F BIBA and c/o SOB that began today at 12:10 during hemodialysis. Prior to arrival, the patient was given Duo-Neb which improved her SOB. At the time of examination, she is on oxygen. Pt additionally c/o CP ( per nursing documentation, but none stated in the examination room). PMHx: COPD , DM, CRF with hemodialysis, A-Fib, CHF, asthma, and CV disease. PSHx: toe amputation, ovarian cyst removal. SHx: smoking, no illicit drugs, no alcohol. She is on 6L of oxygen at home. - History of Current Complaint Chief Complaint: EDShortnessOfBreath Time Seen by Provider: 05/24/17 12:16 Hx Obtained From: Patient, EMS, Other: - nursing documentation Timing: Constant Aggrevating Factors: Nothing Alleviating Factors: EMS Tx - Allergy/Home Medications Allergies/Adverse Reactions: Allergies Allergy/AdvReac Type Severity Reaction Status Date / Time Chlorpromazine Allergy Unknown Verified 05/24/17 12:16 [From Thorazine] Reaction Details Codeine Allergy Unknown Verified 05/24/17 12:16 [From Tylenol with Codeine Reaction #3] Details Lorazepam [From Ativan] Allergy Unknown Verified 05/24/17 12:16 Reaction Details Warfarin [From Coumadin] Allergy Unknown Verified 05/24/17 12:16 Reaction Details PMH/Surg Hx/FS Hx/Imm Hx Previously Healthy: No Endocrine/Hematology History: Reports: Hx Diabetes Cardiovascular History: Reports: Hx Congestive Heart Failure, Hx Coronary Artery Disease, Hx Hypercholesterolemia, Hx Hypertension, Hx Myocardial Infarction - 12 years ago, Hx Peripheral Vascular Disease, Other Cardiovascular Problems/Disorders - HEART FAILURE Denies: Hx Pacemaker/ICD Respiratory History: Reports: Hx Chronic Obstructive Pulmonary Disease (COPD) - on 2L O2 at home (pt reports not always using due to difficulty w/ O2 tank), Hx Seasonal Allergies, Hx Sleep Apnea Denies: Hx Asthma History: Reports: Hx Chronic Renal Failure, Hx Dialysis - has been on dialysis for "over a year" per patient, Hx Renal Disease Musculoskeletal History: Reports: Hx Gout, Other Musculoskeletal History - using cane Sensory History: Reports: Hx Contacts or Glasses - reading Denies: Hx Cataracts, Hx Eye Injury, Hx Eye Prosthesis, Hx Glaucoma, Hx Legally Blind, Hx Macular Degeneration, Hx Vision Problem, Hx Deafness, Hx Hearing Aid, Hx Hearing Problem, Other Sensory Impairments Opthamlomology History: Reports: Hx Contacts or Glasses - reading Denies: Hx Cataracts, Hx Eye Injury, Hx Eye Prosthesis, Hx Glaucoma, Hx Legally Blind, Hx Macular Degeneration, Hx Vision Problem, Other Sensory Impairments Psychiatric History: Reports: Hx Schizophrenia, Hx Bipolar Disorder Denies: Hx Eating Disorder - Cancer History Hx Chemotherapy: No Hx Radiation Therapy: No - Surgical History Surgery Procedure, Year, and Place: TOE AMPUTATION, OVARIAN CYST REMOVED Hx Anesthesia Reactions: No - Immunization History Date of Tetanus Vaccine: Unk Date of Influenza Vaccine: Fall 2014 Infectious Disease History: No Infectious Disease History: Denies: Hx Clostridium Difficile, Hx Hepatitis, Hx Human Immunodeficiency Virus (HIV), Hx of Known/Suspected MRSA, Hx Shingles, Hx Tuberculosis, History Other Infectious Disease, Traveled Outside the [place] in Last 30 Days - Family History Known Family History: Negative: Cardiac Disease, Hypertension, Diabetes, Other Family History: No FHx of breast CA - Social History Alcohol Use: None Hx Substance Use: No Substance Use Type: Reports: None Hx Tobacco Use: Yes Smoking Status (MU): Current Every Day Smoker Type: Cigarettes Have You Smoked in the Last Year: Yes Review of Systems Constitutional: Negative Negative: Fever Positive: Chest Pain - per nursing documentation, but none stated in the examination room Positive: Shortness Of Breath - that began today at 12:10 during hemodialysis All Other Systems Reviewed And Are Negative: Yes Physical Exam - Summary Physical Exam Summary: VITAL SIGNS: Reviewed. GENERAL: Patient is a well-developed and nourished female who is lying comfortable in the stretcher. She is receiving breathing treatment that was started by EMS. Patient is not in any acute respiratory distress. HEAD AND FACE: No signs of trauma. ~No ecchymosis, hematomas or skull depressions. No sinus tenderness. EYES: PERRLA, EOMI x 2, No injected conjunctiva, no nystagmus. EARS: Hearing grossly intact. Ear canals and tympanic membranes are within normal limits. MOUTH: Oropharynx within normal limits. NECK: Supple, trachea is midline, no adenopathy, no JVD, no carotid bruit, no c- spine tenderness, neck with full ROM. CHEST: Symmetric, no tenderness at palpation LUNGS: Decreased breath sounds bilaterally. There are crackles in both bases of her lungs. CVS: Regular rate and rhythm, S1 and S2 present, no murmurs or gallops appreciated. ABDOMEN: Soft, non-tender. No signs of distention. No rebound no guarding, and no masses palpated. Bowel sounds are normal. EXTREMITIES: There is 1+ edema in both lower extremities. The left toes are amputated. FROM in all major joints, no cyanosis or clubbing. NEURO: Alert and oriented x 3. No acute neurological deficits. Speech is normal and follows commands. SKIN: Dry and warm Triage Information Reviewed: Yes Vital Signs On Initial Exam: Initial Vitals Temp Pulse Resp BP Pulse Ox 98.3 F 96 20 158/112 100 05/24/17 12:09 05/24/17 12:09 05/24/17 12:09 05/24/17 12:09 05/24/17 12:09 Vital Signs Reviewed: Yes Diagnostics - Vital Signs Vital Signs Temp Pulse Resp BP Pulse Ox 05/24/17 12:09 98.3 F 96 20 158/112 100 - Laboratory Lab Results: Lab Results 05/24/17 05/24/17 05/24/17 Range/Units 12:40 13:05 13:05 WBC 10.1 (3.5-10.8) 10^3/ul RBC 3.58 L (4.0-5.4) 10^6/ul Hgb 11.7 L (12.0-16.0) g/dl Hct 35 (35-47) % MCV 99 H (80-97) fL MCH 33 H (27-31) pg MCHC 33 (31-36) g/dl RDW 16 H (10.5-15) % Plt Count 284 (150-450) 10^3/ul MPV 8 (7.4-10.4) um3 Neut % (Auto) 73.9 (38-83) % Lymph % (Auto) 13.6 L (25-47) % [place] % (Auto) 10.4 H (1-9) % Eos % (Auto) 1.6 (0-6) % Baso % (Auto) 0.5 (0-2) % Absolute Neuts (auto) 7.5 (1.5-7.7) 10^3/ul Absolute Lymphs (auto) 1.4 (1.0-4.8) 10^3/ul Absolute Monos (auto) 1.0 H (0-0.8) 10^3/ul Absolute Eos (auto) 0.2 (0-0.6) 10^3/ul Absolute Basos (auto) 0 (0-0.2) 10^3/ul Absolute Nucleated RBC 0 10^3/ul Nucleated RBC % 0 APTT 48.3 H (26.0-36.3) seconds Patient Temperature Not Reportable ABG pH 7.33 L (7.35-7.45) ABG pCO2 75 H* (35-45) mmHg ABG pO2 165 H (80-100) mmHg ABG HCO3 33.5 H (19-31) mmol/L ABG O2 Saturation 99.9 H (95-98) % ABG Base Excess 11.2 H (-2.0-2.0) Respiration Rate Not Reportable O2 Delivery Device N/c Ventilator Type Not Reportable Vent Mode Not Reportable FiO2 6 Inspiratory Time Not Reportable PEEP Not Reportable Pressure Support Not Reportable Pressure Control Not Reportable EPAP Not Reportable IPAP Not Reportable BiPAP Not Reportable Sodium (133-145) mmol/L Potassium Chloride (101-111) mmol/L Carbon Dioxide (22-32) mmol/L Anion Gap (2-11) mmol/L BUN (6-24) mg/dL Creatinine (0.51-0.95) mg/dL Est GFR ( Amer) (>60) Est GFR (Non-Af Amer) (>60) BUN/Creatinine Ratio (8-20) Glucose (70-100) mg/dL Lactic Acid (0.5-2.0) mmol/L Calcium (8.6-10.3) mg/dL Total Bilirubin (0.2-1.0) mg/dL AST ALT (7-52) U/L Alkaline Phosphatase (34-104) U/L Troponin I (<0.04) ng/mL C-Reactive Protein (< 5.00) mg/L B-Natriuretic Peptide ( - 100) pg/mL Total Protein (6.4-8.9) g/dL Albumin (3.2-5.2) g/dL Globulin (2-4) g/dL Albumin/Globulin Ratio (1-3) 05/24/17 05/24/17 05/24/17 Range/Units 13:05 13:05 13:05 WBC (3.5-10.8) 10^3/ul RBC (4.0-5.4) 10^6/ul Hgb (12.0-16.0) g/dl Hct (35-47) % MCV (80-97) fL MCH (27-31) pg MCHC (31-36) g/dl RDW (10.5-15) % Plt Count (150-450) 10^3/ul MPV (7.4-10.4) um3 Neut % (Auto) (38-83) % Lymph % (Auto) (25-47) % [place] % (Auto) (1-9) % Eos % (Auto) (0-6) % Baso % (Auto) (0-2) % Absolute Neuts (auto) (1.5-7.7) 10^3/ul Absolute Lymphs (auto) (1.0-4.8) 10^3/ul Absolute Monos (auto) (0-0.8) 10^3/ul Absolute Eos (auto) (0-0.6) 10^3/ul Absolute Basos (auto) (0-0.2) 10^3/ul Absolute Nucleated RBC 10^3/ul Nucleated RBC % APTT (26.0-36.3) seconds Patient Temperature ABG pH (7.35-7.45) ABG pCO2 (35-45) mmHg ABG pO2 (80-100) mmHg ABG HCO3 (19-31) mmol/L ABG O2 Saturation (95-98) % ABG Base Excess (-2.0-2.0) Respiration Rate O2 Delivery Device Ventilator Type Vent Mode FiO2 Inspiratory Time PEEP Pressure Support Pressure Control EPAP IPAP BiPAP Sodium 128 L (133-145) mmol/L Potassium TNP Chloride 91 L (101-111) mmol/L Carbon Dioxide 32 (22-32) mmol/L Anion Gap 5 (2-11) mmol/L BUN 21 (6-24) mg/dL Creatinine 3.03 H (0.51-0.95) mg/dL Est GFR ( Amer) 20.4 (>60) Est GFR (Non-Af Amer) 15.8 (>60) BUN/Creatinine Ratio 6.9 L (8-20) Glucose 140 H (70-100) mg/dL Lactic Acid 0.4 L (0.5-2.0) mmol/L Calcium 9.0 (8.6-10.3) mg/dL Total Bilirubin 0.30 (0.2-1.0) mg/dL AST TNP ALT 16 (7-52) U/L Alkaline Phosphatase 74 (34-104) U/L Troponin I 0.02 (<0.04) ng/mL C-Reactive Protein 65.70 H (< 5.00) mg/L B-Natriuretic Peptide 1331 H ( - 100) pg/mL Total Protein 8.1 (6.4-8.9) g/dL Albumin 4.0 (3.2-5.2) g/dL Globulin 4.1 H (2-4) g/dL Albumin/Globulin Ratio 1.0 (1-3) Result Diagrams: 05/24/17 13:05 05/24/17 13:05 Lab Statement: Any lab studies that have been ordered have been reviewed, and results considered in the medical decision making process. Course/Dx - Course Assessment/Plan: The pt is a 27 y/o M presenting to the ED c/o CP that began today at 05:00. The pain is rated 6/10. The pain is aggravated and alleviated by nothing. Pt additionally c/o numbness and tingling (on his arms, hands, cheeks, and underneath his face), SOB, palpitations (characterized as hard, faster and then slower), and vomiting (04:30). Pt denies cough and fevers. The patient is currently taking Lexapro. PMHx: asthma, depression, anxiety. PSHx: none. SHx: smoking (1 PPD), no alcohol use, marijuana use. FHx: HTN, DM, CHF, LA. He has never experienced chest pain like this before. He denies drinking excessive amounts of coffee, alcohol, or energy drinks recently. He had 2 cups of coffee this AM, which is normal for him. Test results are without any significant abnormalities; Troponin 0.00; CXR is negative for any acute intrathoracic disease. In the ED course the patient was given IV fluids, ASA, and Toradol. After these medications, the patients symptoms improved. The patient was observed in the ED for a couple hours and symptoms did not return. The patient is diagnosed with chest pain. The patient is hemodynamically stable and alert and oriented x3. - Diagnoses Provider Diagnoses: COPD exacerbation, Hypercapnia, ESRD (end stage renal disease) - Physician Notifications Discussed Care of Patient With: Fausto Huffman Time Discussed With Above Provider: 13:52 Instructed by Provider To: Other - Dr. Huffman [place] [facility] [place] Discharge - Discharge Plan Condition: Fair Disposition: ADMITTED TO [facility] documentation as recorded by the Celi echavarria Thomas accurately reflects the service I personally performed and the decisions made by , Marcos Sims MD.
[2017-05-24] MEDS: Sevelamer TAB* 800 MG PO SCH (19:26)
[2017-05-24] MEDS: Atenolol TAB* 50 MG PO SCH (19:26)
[2017-05-24] MEDS ORDERED: methylPREDNISolone 125 MG* 2 ML VIAL IV SCH (21:00)
[2017-05-24] MEDS ORDERED: Insulin LISPRO* 1 UNITS UNIT SUBCUT ONE (21:00)
[2017-05-24] MEDS: Insulin GLARGINE(*) 1 UNITS UNIT SUBCUT SCH (21:04)
[2017-05-24] MEDS: Insulin LISPRO* 1 UNITS UNIT SUBCUT SCH (21:04)
[2017-05-24] MEDS: Acetaminophen TAB* 325 MG PO PRN (21:05)
[2017-05-24] MEDS: Heparin VIAL(*) 5000 UNITS/ML VIAL (FIVE THOUSAND) SUBCUT SCH (21:05)
[2017-05-24] MEDS: Divalproex ER TAB(*) 500 MG PO SCH (21:12)
[2017-05-24] MEDS: DOXYcycline CAP(*) 100 MG PO SCH (21:13)
--- NOTE | 2017-05-24 21:13 | HP ---
CC: Dr. Atkins * [facility] MEDICINE HISTORY AND PHYSICAL: DATE OF ADMISSION: 05/24/17 PRIMARY CARE PHYSICIAN: Dr. Atkins. ATTENDING PHYSICIAN: Dr. Fausto Huffman * (dictation provided by Kandi Field NP ) CHIEF COMPLAINT: Shortness of breath. HISTORY OF PRESENT ILLNESS: Ms. Tomas is a 56-year-old female with past medical history of end-stage renal disease, on hemodialysis; COPD, on 2 L nasal cannula; diastolic CHF; atrial fibrillation; diabetes; bipolar schizoaffective disorder, who presents to the hospital today with concern for shortness of breath. Ms. Tomas states that she has been having increased shortness of breath with cough over the past 1 to 2 weeks. She felt that her breathing was much worse today. I spoke to the dialysis nurse who treated her today and she states that Ms Tomas was short of breath on arrival to the dialysis unit; however, it did not seem to be out of keeping with her history. The patient was able to tolerate about 1 hour of dialysis before she came acutely short of breath. The dialysis nurse states that the patient was hypoxic with this and she was not able to get her O2 saturation greater than 90%. She, therefore, discontinued the dialysis and had her brought to the emergency room. Ms. Tomas denies any fever. She does report a cough that does seem worse to her than usual. She has no chest pain. She has no nausea, vomiting, diarrhea, abdominal pain. She does report lower extremity swelling, which she thinks is perhaps worse than usual. In the emergency room, Ms. Tomas had an ABG, which showed a pH of 7.33, a PCO2 of 75, a PO2 of 165, and a bicarbonate 33.5. Her hypercarbia is near her baseline but she is mildly acidotic with a pH of 7.33. She has no leukocytosis or fever. However her CRP is slghtly elevated to 65.7. Her electrolytes are notable for a sodium of 128. Her potassium was not processed. Her BNP is elevated at 1331, but this is consistent with previous based on her history of CHF and end-stage renal disease. Chest x-ray shows pulmonary interstitial edema. PAST MEDICAL HISTORY: 1. COPD, on 2 L nasal cannula. 2. End-stage renal disease, on hemodialysis. 3. Diastolic congestive heart failure. 4. Atrial fibrillation. 5. Peripheral vascular disease. 6. Hypertension. 7. Type 2 diabetes. 8. Hyperlipidemia. 9. Gout. 10. Schizoaffective disorder, bipolar. MEDICATIONS: 1. Calcium bicarbonate 1000 mg p.o. daily. 2. Diphenhydramine 25 mg p.o. daily. 3. Tylenol 500 mg p.o. q.4 hours p.r.n. 4. Doxazosin 4 mg p.o. daily. 5. Ipratropium 0.5 mg q.6 hours p.r.n. 6. Simvastatin 20 mg p.o. daily. 7. Sodium polystyrene 15 g p.o. daily p.r.n. 8. Allopurinol 100 mg p.o. daily. 9. Aspirin 81 mg p.o. daily. 10. Atenolol 100 mg p.o. q.a.m. and 50 mg p.o. q.p.m. 11. Clopidogrel 75 mg p.o. daily. 12. Divalproex ER 500 mg p.o. t.i.d. 13. Isosorbide mononitrate ER 30 mg p.o. daily. 14. Nitroglycerin tabs p.r.n. 15. MiraLAX daily p.r.n. 16. Risperidone 4 mg p.o. daily. 17. Sevelamer 800 mg p.o. t.i.d. with meals. 18. Amlodipine 5 mg p.o. daily. 19. Basalglar 10 units subc daily. ALLERGIES: To CHLORPROMAZINE, CODEINE, LORAZEPAM, and WARFARIN. FAMILY HISTORY: The patient's father related to coronary artery disease and mom's cause of is unclear. SOCIAL HISTORY: The patient is a continued pack-a-day smoker. She reports cutting back from 2 to 3 packs a day. She drinks alcohol very occasionally, but not recently. No report of drug use. She lives alone. She states that her son, Beny, is her healthcare proxy. REVIEW OF SYSTEMS: A 14-point review of systems was completed with Ms. Tomas and all those not mentioned above were negative. PHYSICAL EXAMINATION GENERAL: Ms. Tomas is lying in the bed. She is mildly short of breath at rest and becomes more winded even with bed mobility. VITAL SIGNS: Temperature 98.3, heart rate 89, respiratory rate 25, O2 saturation 100% on 3 L nasal cannula, blood pressure 170/80. LUNGS: Diminished throughout. Very poor-to-no air movement. HEART: S1, S2. No murmur, rub, or gallop appreciated. ABDOMEN: Soft, nontender with bowel sounds positive x4. EXTREMITIES: No cyanosis. +2 edema bilaterally. NEURO: She is alert. She is oriented x3. She moves all extremities equally. There is no facial asymmetry or focal weakness. Extraocular movements are intact. SKIN: Intact. DIAGNOSTIC STUDIES/LAB DATA: Sodium 128, potassium is not processed, chloride 91, serum bicarbonate 32, BUN 21, creatinine 3.03, glucose 140, lactic acid 0.4. CRP 65.70. Troponin 0.02. BNP 1331. WBC 10.1, hemoglobin 11.7, hematocrit 35, platelet count 284. Chest x-ray per the read from the radiologist shows cardiomegaly only, but I am concerned that there is interstitial pulmonary edema. EKG shows a sinus rhythm with heart rate of 100. No evidence of ischemia, no change from previous. ASSESSMENT AND PLAN: Ms. Tomas is a 56-year-old female with past medical history of end-stage renal disease, on hemodialysis, as well as chronic obstructive pulmonary disease, on 2 L nasal cannula; congestive heart failure; atrial fibrillation; and diabetes, who presents today the hospital with concern for shortness of breath with concern for fluid overload related to CHF and ESRD as well as suspected chronic obstructive pulmonary disease exacerbation. Our plans are for inpatient admission to the intensive care unit for the followin. Shortness of breath with acute mixed hypercarbic and hypoxic respiratory failure. I think the patient shows features of both congestive heart failure and chronic obstructive pulmonary disease exacerbation. Plan to treat with BiPAP, which has been placed in the ED. She will be monitored in the intensive care unit. Her normal dialysis day would not be until Friday but she will need more urgent dialysis. I have spoken with Dr. Henning and he is arranging for dialysis today. Pllan also to treat with Solu-Medrol, doxycycline, and duonebs prn. 2. Type 2 diabetes. Plan to hold basalglar which is non-formulary and provide lantus with lispro SSI coverage for meals. 3. Hypertension. Continue amlodipine and atenolol. 4. Hyperlipidemia. She will continue simvastatin. 5. History of schizoaffective disorder. Continue risperidone and divalproex. 6. Peripheral vascular disease. Continue Plavix. 7. DVT prophylaxis. With heparin subcu. 8. Code status is full code. 9. Disposition to the intensive care unit for rescue BiPAP. TIME SPENT: Approximately 75 minutes was spent on the admission of this patient , more than half the time spent with the patient at the bedside reviewing the events leading up to this hospitalization, performing the physical examination, and reviewing my plan of care. KANDI FIELD NP [id number]/CPS #: [id number] SHERIE
[2017-05-25] MEDS: Heparin VIAL(*) 5000 UNITS/ML VIAL (FIVE THOUSAND) SUBCUT SCH ×3 (05:44→21:11)
[2017-05-25 06:38] LABS: BUN/Creatinine Ratio 6.2 (8-20); Calcium 8.9 mg/dL (8.6-10.3); EGFR Non-African American 17.9 (>60)
[2017-05-25] MEDS ORDERED: guaiFENesin LIQ* 100 MG/5 ML UDC PO PRN (08:13)
--- NOTE | 2017-05-25 08:19 | PN ---
Subjective Date of Service: 05/25/17 Interval History: Patient seen this morning, off of BiPAP on 2L NC. Reports she still feels SOB but much improved from yesterday. Reports cough, occasionally productive, feels like she has congestion in her chest that she cannot bring up. Tolerating PO. Family History: Unchanged from Admission Social History: Unchanged from Admission Past Medical History: Unchanged from Admission Objective Active Medications: Acetaminophen (Tylenol Tab*) 650 mg PO Q6H PRN PRN Reason: PAIN Last Admin: 05/24/17 21:05 Dose: 650 mg Albuterol/Ipratropium (Duoneb (Albuterol 2.5 Mg/Ipratropium 0.5 Mg)) 1 neb INH Q4H PRN PRN Reason: SOB/WHEEZING Allopurinol (Zyloprim Tab*) 100 mg PO DAILY [facility] Amlodipine Besylate (Norvasc Tab*) 5 mg PO DAILY [facility] Aspirin (Aspirin Ec Low Dose*) 81 mg PO DAILY [facility] Atenolol (Tenormin Tab*) 50 mg PO QPM [facility] Last Admin: 05/24/17 19:26 Dose: 50 mg Atenolol (Tenormin Tab*) 100 mg PO QAM [facility] Calcium Carbonate (Tums*) 1,000 mg PO DAILY [facility] Clopidogrel Bisulfate (Plavix Tab*) 75 mg PO DAILY [facility] Dextrose (D50w Syringe 50 Ml*) 12.5 gm IV PUSH .FOR FS < 60 - SS PRN PRN Reason: FS < 60 Diphenhydramine HCl (Benadryl Po*) 25 mg PO DAILY [facility] Divalproex Sodium (Depakote Er Tab(*)) 500 mg PO TID [facility] Last Admin: 05/24/17 21:12 Dose: 500 mg Doxycycline Hyclate (Vibramycin Cap(*)) 100 mg PO BID [facility] Last Admin: 05/24/17 21:13 Dose: 100 mg Guaifenesin (Robitussin*) 5 ml PO Q4H PRN PRN Reason: COUGH Heparin Sodium (Porcine) (Heparin Vial(*)) 5,000 units SUBCUT Q8HR [facility] Last Admin: 05/25/17 05:44 Dose: 5,000 units Insulin Glargine (Lantus(*)) 10 units SUBCUT BEDTIME [facility] Last Admin: 05/24/17 21:04 Dose: 10 unit Insulin Human Lispro (Humalog*) 0 units SUBCUT AC NISA PRN Reason: Protocol Last Admin: 05/24/17 21:04 Dose: 2 units Isosorbide Mononitrate (Imdur Er Tab*) 30 mg PO DAILY [facility] Nitroglycerin (Nitroglycerin Tab 0.4 Mg*) 0.4 mg SL Q5M PRN PRN Reason: PAIN Polyethylene Glycol/Electrolytes (Miralax*) 17 gm PO DAILY PRN PRN Reason: CONSTIPATION Risperidone (Risperdal-M Tab *) 4 mg PO DAILY [facility] Sevelamer Carbonate (Renvela Tab*) 800 mg PO TID WITH MEALS [facility] Last Admin: 05/24/17 19:26 Dose: Not Given Vital Signs 05/24/17 05/24/17 05/24/17 15:00 15:29 15:30 Temperature 99.0 F Pulse Rate 89 88 88 Respiratory 22 22 Rate Blood Pressure 166/92 (mmHg) O2 Sat by Pulse 94 95 95 Oximetry 05/24/17 05/24/17 05/24/17 18:45 19:00 19:15 Temperature Pulse Rate 81 84 83 Respiratory 23 24 22 Rate Blood Pressure 122/72 136/73 145/74 (mmHg) O2 Sat by Pulse 93 92 93 Oximetry 05/25/17 05/25/17 05/25/17 01:15 01:30 01:45 Temperature Pulse Rate Respiratory 21 21 18 Rate Blood Pressure 178/95 165/92 188/89 (mmHg) O2 Sat by Pulse 96 95 94 Oximetry 05/25/17 05/25/17 05/25/17 04:11 05:00 06:00 Temperature Pulse Rate 82 Respiratory 25 23 25 Rate Blood Pressure 173/106 154/104 (mmHg) O2 Sat by Pulse 93 94 97 Oximetry Oxygen Devices in Use Now: Nasal Cannula - 2L Appearance: Middle-aged, AAF, appears older than stated age, laying in bed in NAD Eyes: No Scleral Icterus Ears/Nose/Mouth/Throat: Mucous Membranes Moist Neck: NL Appearance and Movements; NL JVP Respiratory: Symmetrical Chest Expansion and Respiratory Effort, - - Poor air movement, no wheezing Cardiovascular: NL Sounds; No Murmurs; No JVD, RRR Abdominal: - - Obese, soft, NTND, BS+ Lymphatic: No Cervical Adenopathy Extremities: No Edema Skin: No Rash or Ulcers Neurological: Alert and Oriented x 3 Result Diagrams: 05/24/17 13:05 05/25/17 04:05 Microbiology and Other Data: Microbiology 05/24/17 21:28 Nasal Screen MRSA (PCR)(BRANDY) - Final Nasal Mrsa Negative Assess/Plan/Problems-Billing Assessment: Acute on chronic mixed hypercarbic and hypoxic respiratory failure 2/2 acute on chronic diastolic CHF exacerbation and COPD exacerbation in a 56 yo F with hx of COPD on home 2L, current tobacco abuse, ESRD on HD, HTN, DM2, HLD, PVD, AFib , schizoaffective disorder - Patient Problems (1) Acute hypercapnic respiratory failure Current Visit: No Comment: and hypoxic, on chronic. 2/2 CHF and COPD exacerbations. Improving, weaned off of BIPAP, on 2LNC (2) COPD exacerbation Current Visit: Yes Comment: Hypoxia improving, currently on home 2L. Still with poor air movement. Change to PO prednsione 40 mg daily. Spiriva, Dulera, prn nebs. Continue PO Doxycycline. (3) Acute on chronic diastolic (congestive) heart failure Current Visit: Yes Comment: Some edema noted on CXR. Now s/p HD, no rales appreciated on exam. Patient states she makes very little urine. BP control. (4) HTN (hypertension) Current Visit: No Comment: BPs elevated. Monitor on Atenolol and Amlodipine. Restart Doxazosin. (5) Atrial fibrillation Current Visit: No Comment: Currently in NSR. Not on AC after discussion from previous admission. Continue Atenolol and ASA. (6) ESRD (end stage renal disease) Current Visit: No Comment: Completed HD in evening on 05/24. (7) Type 2 diabetes mellitus Current Visit: No Comment: Continue Lantus 10 units qhs and HISS. (8) Schizoaffective disorder Current Visit: No Comment: Continue Divalproex and Risperidone. (9) DVT prophylaxis Current Visit: No Comment: HSQ Status and Disposition: Inpatient, transfer to
[2017-05-25] MEDS ORDERED: Spiriva Inhaler DEVICE* 1 EACH DEVICE ONE (09:00)
[2017-05-25] MEDS: Isosorbide Mononitrate ER TAB* 30 MG PO SCH (09:18)
[2017-05-25] MEDS: amLODIPine TAB* 5 MG PO SCH (09:18)
[2017-05-25] MEDS: Clopidogrel TAB* 75 MG PO SCH (09:18)
[2017-05-25] MEDS: Calcium Carbonate CHEW TAB* 500 MG (TUMS) PO SCH (09:18)
[2017-05-25] MEDS: Allopurinol TAB* 100 MG PO SCH (09:19)
[2017-05-25] MEDS: Aspirin EC Low Dose* 81 MG TAB.EC PO SCH (09:19)
[2017-05-25] MEDS: diPHENhydraMINE PO* 25 MG PO SCH (09:19)
[2017-05-25] MEDS: Atenolol TAB* 50 MG PO SCH ×2 (09:19→16:59)
[2017-05-25] MEDS: Divalproex ER TAB(*) 500 MG PO SCH ×3 (09:19→21:11)
[2017-05-25] MEDS: DOXYcycline CAP(*) 100 MG PO SCH ×2 (09:19→21:11)
[2017-05-25] MEDS: [UNRECOGNIZED DRUG - OTHER] PO SCH (09:20)
[2017-05-25] MEDS: predniSONE TAB* 20 MG PO SCH (09:27)
[2017-05-25] MEDS: Doxazosin TAB* 2 MG PO SCH (09:34)
[2017-05-25] MEDS: Mometasone/Formoter 200/5 MDI INH SCH ×2 (09:37→20:01)
[2017-05-25] MEDS: Tiotropium CAP.INH* CAP.INH/18 MCG INH SCH (09:38)
[2017-05-25] MEDS: Insulin LISPRO* 1 UNITS UNIT SUBCUT SCH ×3 (10:25→16:32)
[2017-05-25] MEDS: Sevelamer TAB* 800 MG PO SCH ×3 (10:25→16:32)
[2017-05-25] MEDS: Albuterol/Ipratropium NEB.SOL* Albuterol 2.5 MG/Ipratropium 0.5 MG 3 ML INH PRN ×3 (11:51→20:04)
[2017-05-25] MEDS ORDERED: Albuterol HFA INHALER* 8 gm MDI INH PRN (16:55)
[2017-05-25] MEDS: Acetaminophen TAB* 325 MG PO PRN (19:31)
[2017-05-25] MEDS: Insulin GLARGINE(*) 1 UNITS UNIT SUBCUT SCH (21:10)
[2017-05-26] MEDS: Albuterol/Ipratropium NEB.SOL* Albuterol 2.5 MG/Ipratropium 0.5 MG 3 ML INH PRN ×3 (04:34→15:51)
[2017-05-26] MEDS ORDERED: Morphine INJ* 2 MG/ML 1 ML SYRINGE IV PRN (04:43)
[2017-05-26] MEDS: Heparin VIAL(*) 5000 UNITS/ML VIAL (FIVE THOUSAND) SUBCUT SCH ×3 (05:30→22:44)
[2017-05-26] MEDS: predniSONE TAB* 20 MG PO SCH (07:22)
[2017-05-26] MEDS: Aspirin EC Low Dose* 81 MG TAB.EC PO SCH (07:22)
[2017-05-26] MEDS: Doxazosin TAB* 2 MG PO SCH (07:22)
[2017-05-26] MEDS: DOXYcycline CAP(*) 100 MG PO SCH ×2 (07:22→22:40)
[2017-05-26] MEDS: Divalproex ER TAB(*) 500 MG PO SCH ×3 (07:22→22:40)
[2017-05-26] MEDS: Clopidogrel TAB* 75 MG PO SCH (07:22)
[2017-05-26] MEDS: Allopurinol TAB* 100 MG PO SCH (07:23)
[2017-05-26] MEDS: Sevelamer TAB* 800 MG PO SCH ×3 (07:23→17:07)
[2017-05-26] MEDS: [UNRECOGNIZED DRUG - OTHER] PO SCH (07:23)
[2017-05-26] MEDS: amLODIPine TAB* 5 MG PO SCH (07:24)
[2017-05-26] MEDS: Calcium Carbonate CHEW TAB* 500 MG (TUMS) PO SCH (07:24)
[2017-05-26] MEDS: Isosorbide Mononitrate ER TAB* 30 MG PO SCH (07:24)
[2017-05-26] MEDS: diPHENhydraMINE PO* 25 MG PO SCH (07:24)
[2017-05-26] MEDS: Atenolol TAB* 50 MG PO SCH ×2 (07:25→17:07)
[2017-05-26] MEDS: Insulin LISPRO* 1 UNITS UNIT SUBCUT SCH ×3 (07:48→17:07)
[2017-05-26] MEDS: Mometasone/Formoter 200/5 MDI INH SCH ×2 (08:29→20:25)
[2017-05-26] MEDS: Tiotropium CAP.INH* CAP.INH/18 MCG INH SCH (08:29)
[2017-05-26 10:01] LABS: Urine Bacteria Absent (Absent); Urine Bilirubin Negative (Negative); Urine Glucose Negative (Negative); Urine Nitrite Negative (Negative)
--- NOTE | 2017-05-26 10:06 | PN ---
Subjective Date of Service: 05/26/17 Interval History: Overnight events noted, patient had 2 episodes of SOB, one with associated hypoxia. Seen this morning, reports feeling better than earlier. Still SOB, some wheezing. Denies chest pain. Mild cough, non-productive. Family History: Unchanged from Admission Social History: Unchanged from Admission Past Medical History: Unchanged from Admission Objective Active Medications: Acetaminophen (Tylenol Tab*) 650 mg PO Q6H PRN Albuterol (Ventolin Hfa Inhaler*) 2 puff INH Q4H PRN Albuterol/Ipratropium (Duoneb (Albuterol 2.5 Mg/Ipratropium 0.5 Mg)) 1 neb INH Q4H PRN Allopurinol (Zyloprim Tab*) 100 mg PO DAILY NISA Amlodipine Besylate (Norvasc Tab*) 5 mg PO DAILY NISA Aspirin (Aspirin Ec Low Dose*) 81 mg PO DAILY NISA Atenolol (Tenormin Tab*) 50 mg PO QPM NISA Atenolol (Tenormin Tab*) 100 mg PO QAM [facility] Calcium Carbonate (Tums*) 1,000 mg PO DAILY [facility] Clopidogrel Bisulfate (Plavix Tab*) 75 mg PO DAILY [facility] Dextrose (D50w Syringe 50 Ml*) 12.5 gm IV PUSH .FOR FS < 60 - SS PRN Diphenhydramine HCl (Benadryl Po*) 25 mg PO DAILY [facility] [place] Divalproex Sodium (Depakote Er Tab(*)) 500 mg PO TID NISA Doxazosin Mesylate (Cardura Tab*) 4 mg PO DAILY [facility] [place] Doxycycline Hyclate (Vibramycin Cap(*)) 100 mg PO BID [facility] [place] Guaifenesin (Robitussin*) 5 ml PO Q4H PRN Heparin Sodium (Porcine) (Heparin Vial(*)) 5,000 units SUBCUT Q8HR NISA Insulin Glargine (Lantus(*)) 10 units SUBCUT BEDTIME NISA Insulin Human Lispro (Humalog*) 0 units SUBCUT AC NISA Isosorbide Mononitrate (Imdur Er Tab*) 30 mg PO DAILY [facility] [place] Mometasone Furoate/Formoterol Fumar (Dulera 200/5 Mdi*) 2 puff INH BID NISA Morphine Sulfate (Morphine Inj (Syringe)*) 2 mg IV Q4H PRN Nitroglycerin (Nitroglycerin Tab 0.4 Mg*) 0.4 mg SL Q5M PRN Polyethylene Glycol/Electrolytes (Miralax*) 17 gm PO DAILY PRN Prednisone (Deltasone Tab*) 40 mg PO DAILY NISA Risperidone (Risperdal-M Tab *) 4 mg PO DAILY NISA Sevelamer Carbonate (Renvela Tab*) 800 mg PO TID WITH MEALS NISA Tiotropium [place] (Spiriva Cap.Inh*) 1 cap INH DAILY NISA Vital Signs 05/25/17 05/25/17 05/25/17 10:46 10:50 11:54 Temperature 98.7 F Pulse Rate 81 78 Respiratory 20 20 16 Rate Blood Pressure 153/77 (mmHg) O2 Sat by Pulse 97 94 Oximetry 05/26/17 05/26/17 05/26/17 06:18 07:09 07:24 Temperature Pulse Rate 77 Respiratory 24 18 22 Rate Blood Pressure 146/80 (mmHg) O2 Sat by Pulse 100 Oximetry Oxygen Devices in Use Now: Nasal Cannula - 4L Appearance: Middle-aged, AAF, laying in bed in NAD Eyes: No Scleral Icterus Ears/Nose/Mouth/Throat: Mucous Membranes Moist Neck: NL Appearance and Movements; NL JVP Respiratory: Symmetrical Chest Expansion and Respiratory Effort, - - Poor air movement, some mild wheezing appreciate in B/L bases Cardiovascular: NL Sounds; No Murmurs; No JVD, RRR Abdominal: NL Sounds; No Tenderness; No Distention Lymphatic: No Cervical Adenopathy Extremities: No Edema, - - LUE fistula Skin: No Rash or Ulcers Neurological: Alert and Oriented x 3 Result Diagrams: 05/24/17 13:05 05/25/17 04:05 Assess/Plan/Problems-Billing Assessment: Acute on chronic mixed hypercarbic and hypoxic respiratory failure 2/2 acute on chronic diastolic CHF exacerbation and COPD exacerbation in a 56 yo F with hx of COPD on home 2L, current tobacco abuse, ESRD on HD, HTN, DM2, HLD, PVD, AFib , schizoaffective disorder - Patient Problems (1) Acute hypercapnic respiratory failure Current Visit: No Comment: and hypoxic, on chronic. 2/2 CHF and COPD exacerbations. Currently on 4L NC, continue to wean with goal SpO2 > 90% (2) COPD exacerbation Current Visit: Yes Comment: Still with poor air movement. Continue PO prednsione 40 mg daily. Spiriva, Dulera, prn nebs. Continue PO Doxycycline. Suspect some of patients dyspnea may be due to anxiety, agree with low-dose morphine for now but would monitor for signs of narcosis with ESRD (3) Acute on chronic diastolic (congestive) heart failure Current Visit: Yes Comment: Some edema noted on CXR. Now s/p HD, no rales appreciated on exam. Patient states she makes very little urine. BP control. (4) HTN (hypertension) Current Visit: No Comment: BPs improved. Continue Atenolol, Amlodipine, Doxazosin and Imdur (5) Atrial fibrillation Current Visit: No Comment: Currently in NSR. Not on AC after discussion from previous admission. Continue Atenolol and ASA. (6) ESRD (end stage renal disease) Current Visit: No Comment: Completed HD in evening on 05/24. Next session planned for 05/27 (7) Type 2 diabetes mellitus Current Visit: No Comment: Continue Lantus 10 units qhs and HISS. (8) Schizoaffective disorder Current Visit: No Comment: Continue Divalproex and Risperidone. (9) DVT prophylaxis Current Visit: No Comment: HSQ Status and Disposition: Inpatient, transfer to
[2017-05-26] MEDS ORDERED: Heparin DIALYSIS ONLY(*) 1,000 UNITS/ML VIAL DIALYSIS ONE (18:00)
[2017-05-26] MEDS: Insulin GLARGINE(*) 1 UNITS UNIT SUBCUT SCH (22:40)
[2017-05-27] MEDS: Heparin VIAL(*) 5000 UNITS/ML VIAL (FIVE THOUSAND) SUBCUT SCH ×2 (05:27→14:09)
[2017-05-27] MEDS: Mometasone/Formoter 200/5 MDI INH SCH (07:40)
[2017-05-27] MEDS: Tiotropium CAP.INH* CAP.INH/18 MCG INH SCH (07:40)
[2017-05-27] MEDS: DOXYcycline CAP(*) 100 MG PO SCH (07:41)
[2017-05-27] MEDS: Divalproex ER TAB(*) 500 MG PO SCH ×2 (07:42→12:50)
[2017-05-27] MEDS: predniSONE TAB* 20 MG PO SCH (07:42)
[2017-05-27] MEDS: amLODIPine TAB* 5 MG PO SCH (07:43)
[2017-05-27] MEDS: diPHENhydraMINE PO* 25 MG PO SCH (07:44)
[2017-05-27] MEDS: Sevelamer TAB* 800 MG PO SCH ×2 (07:45→12:50)
[2017-05-27] MEDS: Isosorbide Mononitrate ER TAB* 30 MG PO SCH (07:45)
[2017-05-27 07:47] LABS: BUN/Creatinine Ratio 7.8 (8-20); Calcium 8.6 mg/dL (8.6-10.3); EGFR African American 21.2 (>60); EGFR Non-African American 16.5 (>60); Potassium 4.1 mmol/L (3.5-5.0)
[2017-05-27] MEDS: Doxazosin TAB* 2 MG PO SCH (07:47)
[2017-05-27] MEDS: Clopidogrel TAB* 75 MG PO SCH (07:47)
[2017-05-27] MEDS: Atenolol TAB* 50 MG PO SCH (07:47)
[2017-05-27] MEDS: Allopurinol TAB* 100 MG PO SCH (07:48)
[2017-05-27] MEDS: Aspirin EC Low Dose* 81 MG TAB.EC PO SCH (07:48)
[2017-05-27] MEDS: [UNRECOGNIZED DRUG - OTHER] PO SCH (07:49)
[2017-05-27] MEDS: Calcium Carbonate CHEW TAB* 500 MG (TUMS) PO SCH (07:50)
[2017-05-27] MEDS: Insulin LISPRO* 1 UNITS UNIT SUBCUT SCH ×2 (07:51→12:49)
[2017-05-27 12:39] VITALS: BP 123/67
--- NOTE | 2017-05-28 03:01 | DS ---
CC: Dr. Atkins; Dr. Henning * DISCHARGE SUMMARY: DATE OF ADMISSION: 05/24/17 DATE OF DISCHARGE: 05/27/17 PRIMARY CARE PROVIDER: Dr. Atkins. PARTNERSHIP DEVELOPMENT MANAGER: Dr. Henning. DISCHARGE DIAGNOSES: 1. Acute hypoxemic/hypercapnic on chronic respiratory failure. 2. Acute diastolic congestive heart failure. 3. Acute chronic obstructive pulmonary disease exacerbation secondary to bronchitis. 4. Paroxysmal atrial fibrillation (the patient is now in normal sinus rhythm). SECONDARY DIAGNOSES: 1. Chronic obstructive pulmonary disease, on home O2. 2. End-stage renal disease, on hemodialysis. 3. Diastolic congestive heart failure. 4. Atrial fibrillation. 5. Peripheral vascular disease. 6. Hypertension. 7. Type 2 diabetes. 8. Hyperlipidemia. 9. Gout. 10. Schizoaffective disorder. MEDICATION LIST: 1. Acetaminophen 500 mg p.o. q.8 hours p.r.n. pain. 2. Albuterol HFA 2 puffs inhaled q.4 hours p.r.n. shortness of breath. 3. Allopurinol 100 mg p.o. daily. 4. Amlodipine 5 mg p.o. daily. 5. Aspirin 81 mg p.o. daily. 6. Atenolol 100 mg p.o. in the morning, 50 mg p.o. in the evening. 7. Calcium carbonate 1000 mg p.o. daily. 8. Clopidogrel 75 mg p.o. daily. 9. Diphenhydramine 25 mg p.o. daily. 10. Depakote ER 500 mg p.o. t.i.d. 11. Doxazosin 4 mg p.o. daily. 12. Doxycycline 100 mg p.o. b.i.d. for 7 days. 13. Guaifenesin 5 mL p.o. q.4 hours p.r.n. cough. 14. Lantus 10 units subcutaneously daily. 15. Ipratropium 0.5 mg nebulized q.6 hours p.r.n. shortness of breath. 16. Imdur 30 mg p.o. daily. 17. Nitroglycerin 0.4 mg sublingual q.5 minutes p.r.n. chest pain. 18. MiraLAX 1 package p.o. daily p.r.n. constipation. 19. Prednisone taper as follows: 40 mg p.o. daily for 3 days, 30 mg for 3 days , 20 mg for 3 days, 10 mg for 3 days, 5 mg for 3 days, then stop. 20. Risperdal 4 mg p.o. daily. 21. Sevelamer 800 mg p.o. t.i.d. with meals. 22. Simvastatin 20 mg p.o. daily. 23. Kayexalate 15 g p.o. daily as indicated by dialysis nurse. HOSPITAL COURSE: Ms. Tomas is a 56-year-old lady with a past medical history as stated above that presented to the emergency room with complaints of increased shortness of breath and cough for the past 1 to 2 weeks. She went to her dialysis on the day of admission and she could tolerate about an hour only and she became acutely short of breath. For more details about her presentation , I refer you to her history and physical. The patient was admitted for further management. Chest x-ray showed cardiomegaly, but no active cardiopulmonary disease. The impression was that the patient likely had a COPD exacerbation secondary to bronchitis that had become worsened in the setting of acute CHF exacerbation. The patient was dialyzed, treated with steroids, doxycycline, bronchodilators, and she had improvement of her symptoms. Today, the patient feels much improved and requests to be discharged home. She has no shortness of breath at rest or exertion, but she still requires 3 L of supplemental oxygen instead of her usual 2 L, but otherwise, she feels back to her baseline. I discussed the case with Dr. Henning and the plan is for the patient to resume her dialysis on 05/29/17 as scheduled. The patient had cultures sent on admission and they yielded no growth. I suspect the patient may have a component of dietary noncompliance playing a role on her symptoms. I took care of her on the prior admission and although the patient vehemently denied being noncompliant with her diet and fluid intake , the patient's family gave collateral information that the patient was drinking a lot of regular soda and eating the foods that she was not allowed. I questioned her again this time, and she insists that she is compliant with diet and fluid intake, but this is something to keep in mind if she returns with shortness of breath. The patient is medically stable to be discharged home today to follow up with her primary care provider, Dr. Atkins, on 06/03/17. PHYSICAL EXAMINATION: Vital Signs: Temperature 96.9, heart rate is 73, respiratory rate is 16, oxygen saturation 95% on 3 L, blood pressure is 123/67. General: The patient is a pleasant lady, sitting up in bed, in no acute distress. CVS: Normal S1, S2. Regular rate and rhythm. Chest: Breath sounds bilaterally with no added sounds. Abdomen: Soft. Bowel sounds are present. Neuro: She is alert, awake, and oriented x3. Able to move all 4 extremities. DIET: Heart-healthy, consistent renal diet. ACTIVITIES: As tolerated. DISPOSITION: To home. STATUS WHILE IN THE HOSPITAL: Inpatient. Please keep in mind, this is a summarized version of this patient's hospital stay. If you need more information, please feel free to call me at [phone] or please obtain the full medical records. TIME SPENT: Approximately 45 minutes was spent to complete the discharge. [id number]/CPS #: [id number] SHERIE
== END 2017-05-27 15:00 | disposition home or self-care (01) | DRG 133 ==
LOC: ED 12:08 → ICU 14:57 → MEDTELE 05-25 08:18
PROVIDERS: ADMIT Internal Medicine; ATTEND Internal Medicine
PROC: 5A1D60Z (ICD-10-PCS; principal; 2017-05-24)
DX: J96.22 Acute and chronic respiratory failure with hypercapnia (principal); I50.31 Acute diastolic (congestive) heart failure; N18.6 End stage renal disease; E11.22 Type 2 diabetes mellitus with diabetic chronic kidney disease; J44.0 Chronic obstructive pulmonary disease with (acute) lower respiratory infection; I48.0 Paroxysmal atrial fibrillation; I13.2 Hypertensive heart and chronic kidney disease with heart failure and with stage 5 chronic kidney disease, or end stage renal disease; J44.1 Chronic obstructive pulmonary disease with (acute) exacerbation; Z99.81 Dependence on supplemental oxygen; J96.21 Acute and chronic respiratory failure with hypoxia; Z99.2 Dependence on renal dialysis; J20.9 Acute bronchitis, unspecified; E11.51 Type 2 diabetes mellitus with diabetic peripheral angiopathy without gangrene; E78.5 Hyperlipidemia, unspecified; M10.9 Gout, unspecified; F25.0 Schizoaffective disorder, bipolar type; Z79.1 Long term (current) use of non-steroidal anti-inflammatories (NSAID); Z79.82 Long term (current) use of aspirin; Z79.84 Long term (current) use of oral hypoglycemic drugs; Z79.899 Other long term (current) drug therapy; Z88.5 Allergy status to narcotic agent; Z88.8 Allergy status to other drugs, medicaments and biological substances; Z82.49 Family history of ischemic heart disease and other diseases of the circulatory system; F17.210 Nicotine dependence, cigarettes, uncomplicated
CPT/HCPCS: 36415; 36600; 71010; 80048; 80053; 81003; 81015; 82803; 83605; 83880; 84484; 85025; 85730; 86140; 87040; 87086; 87641; 90935; 93005; 94640; 94660; 94760; 99406; A9270-GY; G0257; J1644; J2270; J2930; J7512

== ENCOUNTER 2017-06-08 14:30 | Inpatient (IN) | payer OTHER ==
[2017-06-08 15:35] LABS: Hematocrit 33 % (35-47); Mean Corpuscular HGB Conc 34 g/dl (31-36); Mean Corpuscular Hemoglobin 32 pg (27-31); Mean Corpuscular Volume 96 fL (80-97); Mean Platelet Volume 8 um3 (7.4-10.4); Red Blood Count 3.43 10^6/ul (4.0-5.4); Red Cell Distribution Width 15 % (10.5-15); White Blood Count 12.4 10^3/ul (3.5-10.8)
[2017-06-08 15:49] LABS: Albumin 3.4 g/dL (3.2-5.2); BUN/Creatinine Ratio 7.1 (8-20); Calcium 8.5 mg/dL (8.6-10.3); EGFR African American 22.2 (>60); EGFR Non-African American 17.3 (>60); Potassium 3.4 mmol/L (3.5-5.0); Total Bilirubin 0.3 mg/dL (0.2-1.0); Total Protein 6.4 g/dL (6.4-8.9)
[2017-06-08 15:51] LABS: Troponin I 0.03 ng/mL (<0.04)
[2017-06-08] MEDS ORDERED: Albuterol/Ipratropium NEB.SOL* Albuterol 2.5 MG/Ipratropium 0.5 MG 3 ML INH ONE (15:54)
[2017-06-08] MEDS ORDERED: Nitroglycerin TAB 0.4 MG* 0.4 MG TAB SL ONE (15:56)
[2017-06-08] MEDS ORDERED: Nitroglycerin 2% OINT* 1 GM PAK TOPICAL ONE (15:56)
--- NOTE | 2017-06-08 16:02 | RAD ---
HISTORY: Shortness of breath COMPARISONS: May 24, 2017 VIEWS:1: Single frontal portable view of the chest at 3:40 PM FINDINGS: LINES AND TUBES: None. CARDIOMEDIASTINAL SILHOUETTE: The cardiac silhouette is enlarged. The cardiomediastinal silhouette is otherwise normal for portable technique. PLEURA: The costophrenic angles are sharp. No pleural abnormalities are noted. LUNG PARENCHYMA: There is prominence of the central pulmonary vasculature. ABDOMEN: The upper abdomen is clear. There is no subphrenic gas. BONES AND SOFT TISSUES: No bone or soft tissue abnormalities are noted. IMPRESSION: CARDIOMEGALY. PULMONARY VASCULAR CONGESTION
[2017-06-08] MEDS: methylPREDNISolone 125 MG* 2 ML VIAL IV ONE ×2 (16:12→18:00)
[2017-06-08] MEDS ORDERED: Acetaminophen TAB* 325 MG PO PRN (17:26)
[2017-06-08] MEDS ORDERED: Dextrose 50% Syringe 50 ML* 25 GM/50 ML SYRINGE IV PUSH PRN (17:26)
[2017-06-08] MEDS ORDERED: Ondansetron INJ* 2 MG/ML VIAL IV PRN (17:26)
[2017-06-08] MEDS ORDERED: Albuterol HFA INHALER* 8 gm MDI INH PRN (17:39)
[2017-06-08] MEDS ORDERED: guaiFENesin LIQ* 100 MG/5 ML UDC PO PRN (17:39)
[2017-06-08] MEDS ORDERED: Albuterol 2.5 MG/3 ML NEB.SOL* (0.083%) INH PRN (17:43)
[2017-06-08] MEDS ORDERED: Nitroglycerin 2% OINT* 1 GM PAK TOPICAL SCH (18:00)
[2017-06-08 18:28] LABS: TSH (Thyroid Stimulating Horm) 1.42 mcIU/mL (0.34-5.60)
[2017-06-08 18:33] LABS: Urine Bacteria Absent (Absent); Urine Bilirubin Negative (Negative); Urine Glucose Negative (Negative); Urine Nitrite Negative (Negative)
[2017-06-08] MEDS ORDERED: nitroGLYCERIN DRIP* 250 ML ONE (20:14)
[2017-06-08] MEDS: Morphine INJ* 2 MG/ML 1 ML SYRINGE ONE ×4 (20:18→22:20)
[2017-06-08] MEDS ORDERED: Furosemide IV* 10 MG/ML 10 ML VIAL (100 MG) IV ONE (20:45)
[2017-06-08] MEDS ORDERED: Morphine INJ* 2 MG/ML 1 ML SYRINGE IV ONE (20:47)
[2017-06-08] MEDS ORDERED: Furosemide IV* 10 MG/ML 10 ML VIAL (100 MG) ONE (21:00)
[2017-06-08] MEDS ORDERED: nitroGLYCERIN DRIP* 25,000 MCG in PREMIX* 0 ML IV SCH (21:00)
[2017-06-08] MEDS ORDERED: Succinylcholine* 20 MG/ML 10 ML VIAL ONE (21:17)
--- NOTE | 2017-06-08 21:19 | RAD ---
HISTORY: Shortness of breath COMPARISONS: June 08, 2017 at 2:27 PM VIEWS:1: Single frontal portable view of the chest at 9:00 PM FINDINGS: LINES AND TUBES: None. CARDIOMEDIASTINAL SILHOUETTE: The cardiac silhouette is enlarged. The cardiomediastinal silhouette is otherwise normal for portable technique. PLEURA: The costophrenic angles are sharp. No pleural abnormalities are noted. LUNG PARENCHYMA: There is prominence of the central pulmonary vasculature ABDOMEN: The upper abdomen is clear. There is no subphrenic gas. BONES AND SOFT TISSUES: No bone or soft tissue abnormalities are noted. IMPRESSION: STABLE CARDIOMEGALY WITH PULMONARY VASCULAR CONGESTION.
[2017-06-08] MEDS ORDERED: Heparin DIALYSIS ONLY(*) 1,000 UNITS/ML VIAL DIALYSIS ONE (22:00)
[2017-06-08] MEDS: Nicotine Patch Removal NOTE FOLLOW UP SCH (22:12)
[2017-06-08] MEDS: Divalproex ER TAB(*) 500 MG PO SCH (22:15)
[2017-06-08 22:28] LABS: BUN/Creatinine Ratio 8.1 (8-20); Calcium 8.2 mg/dL (8.6-10.3); EGFR African American 19.1 (>60); EGFR Non-African American 14.8 (>60); Potassium 4.2 mmol/L (3.5-5.0)
[2017-06-08 22:31] LABS: Troponin I 0.05 ng/mL (<0.04)
[2017-06-09] MEDS: Atenolol TAB* 50 MG PO SCH ×3 (01:38→17:45)
[2017-06-09] MEDS: Heparin VIAL(*) 5000 UNITS/ML VIAL (FIVE THOUSAND) SUBCUT SCH ×4 (01:39→21:09)
[2017-06-09 01:49] LABS: BUN/Creatinine Ratio 7.4 (8-20); Calcium 8.1 mg/dL (8.6-10.3); EGFR African American 23.1 (>60); Potassium 3.7 mmol/L (3.5-5.0)
--- NOTE | 2017-06-09 04:13 | HP ---
CC: Dr. Atkins; Dr. Henning * HISTORY AND PHYSICAL: DATE OF ADMISSION: 06/08/17 PRIMARY CARE PROVIDER: Dr. Atkins. PRIMARY HAND CLIPPER: Dr. Henning. ATTENDING PHYSICIAN: Dr. Corea * (DICTATED BY RAINA TORRES NP) CHIEF COMPLAINT: Shortness of breath. HISTORY OF PRESENT ILLNESS: Ms. Tomas is a 56-year-old female patient. She has a history of COPD and on chronic oxygen. She has history of end-stage renal disease. She also has a history of CHF, AFib, peripheral vascular disease , hypertension, hyperlipidemia, diabetes. She has a history of gout, schizoaffective disorder, bipolar disorder, and a history of an FL. She comes into the ER today stating that today she was at a [employer] group, she was walking out of the group and she noticed that she was becoming shortness of breath. She noticed that last few days she notes she has not been doing well. She has been eating and drinking copious amounts of water. She has not really been following her restrictions. She states she has been drinking at least a gallon of water a day in addition to other drinks. She states that she does notice some swelling. She has noticed that she can lie flat because she feels too short of breath and she has noticed that she has just been again progressively worsening shortness of breath. She came into the ER today because while she was walking at [employer] she got shortness of breath again, she fell, landed on her knees, is not having any pain now, did not hit her head and she decided to be evaluated because of her breathing. Ultimately, she denied having any chest pain. She denied having any abdominal pain. There bhatia been no nausea or vomiting. No dysuria. She was noted to have a significantly low sodium and because of these findings we are asked to evaluate for admission. PAST MEDICAL HISTORY: Significant for: 1. COPD. 2. End-stage renal disease. 3. CHF. 4. AFib. 5. PVD. 6. Hypertension. 7. Diabetes. 8. Hyperlipidemia. 9. Gout. 10. Schizoaffective disorder. 11. Bipolar. 12. History of FL. PAST SURGICAL HISTORY: 1. She has had ectopic . 2. She has had an AV fistula placed in her left arm. FAMILY HISTORY: Her mother had a history of end-stage renal disease. Father had a history of CAD. SOCIAL HISTORY: She is a pack a day smoker for about 46 years. She rarely drinks alcohol. She occasionally smokes marijuana. Surrogate decision maker is her it software developer. ALLERGIES TO MEDICATIONS: Include THORAZINE, CODEINE, ATIVAN, and WARFARIN. HOME MEDICATIONS: According to the previous discharge include: 1. Aspirin 81 mg daily. 2. Allopurinol 100 mg daily. 3. Albuterol 2 puffs inhale every 4 hours as needed. 4. Tylenol 500 mg every 8 hours as needed. 5. Benadryl 25 mg daily. 6. Plavix 75 mg p.o. daily. 7. Calcium 1000 mg daily. 8. Atenolol 50 mg at night, 100 mg at morning. 9. Zocor 20 mg daily. 10. Renvela 800 mg p.o. t.i.d. with meals. 11. Risperidone 4 mg p.o. daily. 12. MiraLAX 1 spoonful p.o. daily as needed. 13. Nitro 0.4 mg under the tongue every 5 minutes as needed for chest pain x3. 14. Imdur 30 mg daily. 15. Atrovent half a mg inhaler every 6 hours as needed. 16. Lantus 10 units subcu daily. 17. Doxazosin 4 mg daily. 18. Depakote 500 mg p.o. t.i.d. 19. Prednisone 5 mg daily for 3 more days. 20. Robitussin 5 cc p.o. every 4 hours as needed. 21. Kayexalate 15 g p.o. daily as needed. 22. Amlodipine 5 mg p.o. daily. REVIEW OF SYSTEMS: There is no documented fevers. She denied having any significant weight change. She denies having any double vision. There is no ear discharge. She denies having any rhinorrhea, no sore throat, no thyroid enlargement. Denied having any chest pain. There was no orthopnea. There is orthopnea. There is no nocturnal dyspnea. There was no abdominal pain. No nausea. No vomiting. No dysuria. No frequency. No loss of consciousness. No pruritus. No skin ulceration. Review of 14 systems was completed, all others negative. PHYSICAL EXAMINATION GENERAL: At this time, Ms. Tomas is a 56-year-old female patient. She appears to be well nourished, well developed, sitting in the ER stretcher. VITAL SIGNS: Blood pressure 108/91, pulse of 96, respirations 18, O2 saturation 96%, temperature 98.0. HEENT: Head is atraumatic and normocephalic. Eyes: EOMs are intact. Sclerae are anicteric and not pale. Throat: Oral mucosa appears to be moist. No oropharyngeal erythema. NECK: Supple. HEART: Sounds S1, S2. Regular rate and rhythm. No murmur, rubs, or gallops. LUNGS: Diminished in the bases. She had some crackles bilaterally. Equal diaphragmatic expansion. ABDOMEN: Soft. It was flat, nontender. Bowel sounds present. EXTREMITIES: She did have +3 pitting edema bilaterally from the feet up to her pretibial area. She had 5/5 strength. NEUROLOGIC: She is awake, alert, and oriented x3. She does have flight of ideas. She is tired focus on one subject. SKIN: Grossly intact. LABORATORY DATA/DIAGNOSTIC STUDIES: The labs today revealed WBC of 12.4, RBC of 3.43, hemoglobin 11.0, hematocrit 33, platelet count 189. Sodium is 116, potassium 3.4, chloride of 81, bicarbonate 30, BUN 20, creatinine 2.81, glucose of 118, lactate 0.6, calcium 8.5, total bilirubin 0.3, AST 22, ALT 20, alkaline phosphatase 58. Troponin 0.03. BNP at 2624. Albumin 3.4. She had a chest x-ray obtained today, the chest x-ray showed cardiomegaly with pulmonary vascular congestion. EKG obtained today showed a normal sinus rhythm with rate of 90. No ST elevations or T wave inversions were noted. Old medical records were reviewed. ASSESSMENT AND PLAN: Ms. Tomas is a 56-year-old female patient coming into the ER today with complaints of shortness of breath. On evaluation was found to be fluid overloaded and hyponatremic. She will be admitted under inpatient status for: 1. Hyponatremia, I suspect etiology of this is probably from polydipsia, it is going to be hard to send off urine studies, as the patient does state that she does urinate. but it is very infrequent. I will try to get urinalysis. I will try to get urine random sodium and urine osmol, we will add on a serum osmol, TSH, and cortisol. The plan will be to fluid restrict her. Dr. Henning will be evaluating her tomorrow, I think also a compound of this is probably being fluid overloaded from her dietary indiscretion and again we will try for dialysis tomorrow. She is neurologically intact at this point. So, we can continue to follow. 2. COPD, continue medications as described and p.r.n. albuterol. 3. End-stage renal disease, again Dr. Henning will be following. Plan is for dialysis tomorrow. 4. Congestive heart failure. She does appear to be in somewhat failure. She is orthopneic. She has swelling. Again, we are going to get dialysis on board and for the time being nitrates have been started by the ED, we will continue with these. She appears to be comfortable now. 5. Atrial fibrillation. She appears to be in a sinus rhythm. We will continue her current medicines, we will follow. 6. PVD, continue with her statin and antiplatelet therapy. 7. Hypertension, it appears that she is in the 180s, but again she is fluid overloaded, which is not helping, again she does have nitrites ordered, we will with these and we will continue to follow. 8. Diabetes, we will put her on lispro sliding scale and continue Lantus. 9. Hyperlipidemia, continue statin therapy. 10. Gout, continue allopurinol. 11. Schizophrenic disorder, we will continue her medications as described. 12. History of bipolar disorder. The patient does appear to be somewhat manic at this point. She is having flight of ideas. She is not suicidal but I would like to get a psychiatric evaluation to make sure that does not have anything to do with her medications. I am checking a Depakote level. 13. History of FL, continue with her statin, beta nicholas, and aspirin. 14. DVT prophylaxis. She is at high risk. She will be placed on heparin subcutaneously. 15. Code status, full code. 16. Fluids and nutrition. She can have a regular diet and she is fluid restricted to a liter a day. TIME SPENT: Time spent on the admission was approximately 50 minutes; greater than half the time spent [id number] with the patient, obtaining my history and physical, the other half time was spent going over the plan of care with the patient and implementing the plan of care. I did discuss the plan of care with my attending, Dr. Corea; she is in agreement. RAINA TORRES, BREAKER MACHINE OPERATOR [id number]/[facility] #: [id number] SHERIE
[2017-06-09 05:12] LABS: Hematocrit 32 % (35-47); Hemoglobin 10.8 g/dl (12.0-16.0); Mean Corpuscular HGB Conc 34 g/dl (31-36); Mean Corpuscular Hemoglobin 32 pg (27-31); Mean Corpuscular Volume 95 fL (80-97); Mean Platelet Volume 9 um3 (7.4-10.4); Red Blood Count 3.32 10^6/ul (4.0-5.4); Red Cell Distribution Width 15 % (10.5-15); White Blood Count 11.7 10^3/ul (3.5-10.8)
[2017-06-09 05:24] LABS: BUN/Creatinine Ratio 7.7 (8-20); Calcium 8.5 mg/dL (8.6-10.3); EGFR African American 21.9 (>60)
[2017-06-09 05:28] LABS: Troponin I 0.07 ng/mL (<0.04)
--- NOTE | 2017-06-09 08:10 | PN ---
Subjective Date of Service: 06/09/17 Interval History: Patient feeling better - less SOB. Objective Active Medications: Acetaminophen (Tylenol Tab*) 650 mg PO Q4H PRN PRN Reason: FEVER/PAIN Albuterol (Ventolin Hfa Inhaler*) 2 puff INH Q4H PRN PRN Reason: SOB/WHEEZING Albuterol (Ventolin 2.5 Mg/3 Ml Neb.May*) 2.5 mg INH Q2H PRN PRN Reason: SOB/WHEEZING Allopurinol (Zyloprim Tab*) 100 mg PO DAILY [facility] Amlodipine Besylate (Norvasc Tab*) 5 mg PO DAILY [facility] Aspirin (Aspirin Ec Low Dose*) 81 mg PO DAILY [facility] Atenolol (Tenormin Tab*) 100 mg PO QAM [facility] Atenolol (Tenormin Tab*) 50 mg PO QPM [facility] Last Admin: 06/09/17 01:38 Dose: Not Given Atorvastatin Calcium (Lipitor*) 10 mg PO 1700 [facility] Calcium Carbonate (Tums*) 1,000 mg PO DAILY [facility] Clopidogrel Bisulfate (Plavix Tab*) 75 mg PO DAILY [facility] Dextrose (D50w Syringe 50 Ml*) 12.5 gm IV PUSH .FOR FS < 60 - SS PRN PRN Reason: FS < 60 Diphenhydramine HCl (Benadryl Po*) 25 mg PO DAILY [facility] Divalproex Sodium (Depakote Er Tab(*)) 500 mg PO TID [facility] Last Admin: 06/08/17 22:15 Dose: Not Given Doxazosin Mesylate (Cardura Tab*) 4 mg PO DAILY [facility] Guaifenesin (Robitussin*) 5 ml PO Q4H PRN PRN Reason: COUGH Heparin Sodium (Porcine) (Heparin Vial(*)) 5,000 units SUBCUT Q8HR [facility] Last Admin: 06/09/17 05:57 Dose: 5,000 units Nitroglycerin/Dextrose 25,000 (mcg/ IV Solution) 250 mls @ 0 mls/hr IV .( Initial Rate) [facility]; 0 MCG/MIN PRN Reason: Protocol Insulin Glargine (Lantus(*)) 10 units SUBCUT DAILY [facility] Insulin Human Lispro (Humalog*) 0 units SUBCUT AC [facility] PRN Reason: Protocol Isosorbide Mononitrate (Imdur Er Tab*) 30 mg PO DAILY [facility] Nicotine (Nicotine Patch 21 Mg/24 Hr*) 1 patch TRANSDERM DAILY@0800 [facility] Ondansetron HCl (Zofran Inj*) 4 mg IV Q6H PRN PRN Reason: NAUSEA Pharmacy Profile Note (Nicotine Patch Removal Note*) 1 note FOLLOW UP 2100 [facility] Last Admin: 06/08/17 22:12 Dose: 1 note Prednisone (Deltasone Tab*) 5 mg PO DAILY [facility] Stop: 06/10/17 09:00 Risperidone (Risperdal*) 4 mg PO DAILY [facility] Sevelamer Carbonate (Renvela Tab*) 800 mg PO TID WITH MEALS [facility] Vital Signs 06/08/17 06/08/17 06/08/17 17:30 18:00 18:03 Temperature Pulse Rate 89 90 Respiratory Rate Blood Pressure 162/90 115/69 (mmHg) O2 Sat by Pulse 99 88 Oximetry 06/08/17 06/08/17 06/08/17 18:25 18:27 18:30 Temperature Pulse Rate 88 84 84 Respiratory 25 20 20 Rate Blood Pressure 176/105 171/97 167/95 (mmHg) O2 Sat by Pulse 100 100 100 Oximetry 06/08/17 06/08/17 06/08/17 18:45 18:59 19:00 Temperature 97.4 F Pulse Rate 80 80 88 Respiratory 19 20 21 Rate Blood Pressure 142/74 170/86 156/79 (mmHg) O2 Sat by Pulse 100 96 100 Oximetry 06/08/17 06/08/17 06/08/17 19:15 19:28 19:30 Temperature Pulse Rate 81 81 79 Respiratory 20 18 18 Rate Blood Pressure 137/72 137/72 140/76 (mmHg) O2 Sat by Pulse 98 98 97 Oximetry 06/08/17 06/08/17 06/08/17 19:42 19:45 20:00 Temperature 97.8 F Pulse Rate 104 106 107 Respiratory 29 31 28 Rate Blood Pressure 202/118 193/114 (mmHg) O2 Sat by Pulse 93 92 94 Oximetry 06/08/17 06/08/17 06/08/17 20:01 20:16 20:18 Temperature Pulse Rate 117 104 Respiratory 29 30 31 Rate Blood Pressure 194/131 201/108 (mmHg) O2 Sat by Pulse 92 97 Oximetry 06/08/17 06/08/17 06/08/17 20:30 20:36 20:40 Temperature Pulse Rate 122 123 123 Respiratory 40 30 22 Rate Blood Pressure 228/124 204/149 215/114 (mmHg) O2 Sat by Pulse 96 93 93 Oximetry 06/08/17 06/08/17 06/08/17 20:45 20:50 20:56 Temperature Pulse Rate 124 121 118 Respiratory 28 24 25 Rate Blood Pressure 190/117 191/144 186/129 (mmHg) O2 Sat by Pulse 94 95 93 Oximetry 06/08/17 06/08/17 06/08/17 21:00 21:05 21:15 Temperature Pulse Rate 119 118 113 Respiratory 28 25 25 Rate Blood Pressure 172/119 178/104 (mmHg) O2 Sat by Pulse 93 95 90 Oximetry 06/08/17 06/08/17 06/08/17 21:16 21:30 21:45 Temperature Pulse Rate 113 109 98 Respiratory 29 27 25 Rate Blood Pressure 175/108 176/103 163/94 (mmHg) O2 Sat by Pulse 91 96 95 Oximetry 06/08/17 06/08/17 06/08/17 21:50 22:00 22:10 Temperature Pulse Rate 94 99 96 Respiratory 24 26 25 Rate Blood Pressure 166/90 164/98 155/87 (mmHg) O2 Sat by Pulse 97 94 95 Oximetry 06/08/17 06/08/17 06/08/17 22:17 22:20 22:25 Temperature Pulse Rate 95 93 96 Respiratory 17 25 28 Rate Blood Pressure 155/81 160/83 162/92 (mmHg) O2 Sat by Pulse 89 97 94 Oximetry 06/08/17 06/08/17 06/08/17 22:30 22:35 22:41 Temperature Pulse Rate 94 88 89 Respiratory 27 22 25 Rate Blood Pressure 156/84 152/79 159/88 (mmHg) O2 Sat by Pulse 96 97 97 Oximetry 06/08/17 06/08/17 06/08/17 22:45 22:50 22:55 Temperature Pulse Rate 89 87 85 Respiratory 23 23 26 Rate Blood Pressure 134/72 123/84 126/73 (mmHg) O2 Sat by Pulse 93 95 95 Oximetry 06/08/17 06/08/17 06/08/17 23:00 23:01 23:05 Temperature Pulse Rate 87 84 80 Respiratory 15 22 14 Rate Blood Pressure 142/78 109/73 (mmHg) O2 Sat by Pulse 95 96 97 Oximetry 06/08/17 06/08/17 06/08/17 23:10 23:15 23:20 Temperature Pulse Rate 80 78 74 Respiratory 20 21 16 Rate Blood Pressure 127/88 134/80 121/79 (mmHg) O2 Sat by Pulse 98 97 97 Oximetry 06/08/17 06/08/17 06/08/17 23:26 23:30 23:34 Temperature Pulse Rate 77 78 77 Respiratory 15 17 17 Rate Blood Pressure 116/68 107/59 (mmHg) O2 Sat by Pulse 95 96 97 Oximetry 06/08/17 06/08/17 06/08/17 23:35 23:36 23:40 Temperature 96.8 F 96.8 F Pulse Rate 75 Respiratory 17 Rate Blood Pressure 112/59 (mmHg) O2 Sat by Pulse 97 Oximetry 06/08/17 06/08/17 06/08/17 23:45 23:50 23:55 Temperature Pulse Rate 75 76 71 Respiratory 19 17 19 Rate Blood Pressure 96/62 105/53 94/58 (mmHg) O2 Sat by Pulse 97 97 96 Oximetry 06/09/17 06/09/17 06/09/17 00:00 00:12 00:13 Temperature Pulse Rate 75 73 78 Respiratory 16 16 16 Rate Blood Pressure 95/56 (mmHg) O2 Sat by Pulse 94 98 98 Oximetry 06/09/17 06/09/17 06/09/17 00:15 00:30 00:45 Temperature Pulse Rate 74 77 75 Respiratory 16 15 15 Rate Blood Pressure 113/58 118/58 118/62 (mmHg) O2 Sat by Pulse 98 99 98 Oximetry 06/09/17 06/09/17 06/09/17 01:00 01:15 01:30 Temperature Pulse Rate 74 74 72 Respiratory 15 14 18 Rate Blood Pressure 108/59 117/61 121/71 (mmHg) O2 Sat by Pulse 98 98 98 Oximetry 06/09/17 06/09/17 06/09/17 01:45 02:00 02:15 Temperature Pulse Rate 74 77 74 Respiratory 14 14 14 Rate Blood Pressure 136/74 121/68 124/72 (mmHg) O2 Sat by Pulse 100 98 97 Oximetry 06/09/17 06/09/17 06/09/17 02:30 02:45 03:00 Temperature Pulse Rate 75 76 74 Respiratory 15 13 14 Rate Blood Pressure 135/71 137/72 132/75 (mmHg) O2 Sat by Pulse 98 98 97 Oximetry 06/09/17 06/09/17 06/09/17 03:15 03:30 04:00 Temperature 97.3 F Pulse Rate 72 74 76 Respiratory 14 16 15 Rate Blood Pressure 145/80 137/77 149/75 (mmHg) O2 Sat by Pulse 98 97 98 Oximetry 06/09/17 06/09/17 06/09/17 04:31 05:00 05:30 Temperature Pulse Rate 83 80 86 Respiratory 19 17 21 Rate Blood Pressure 162/89 154/87 160/89 (mmHg) O2 Sat by Pulse 99 98 95 Oximetry 06/09/17 06/09/17 06/09/17 06:00 06:30 07:00 Temperature Pulse Rate 80 82 81 Respiratory 17 20 21 Rate Blood Pressure 158/97 158/91 158/87 (mmHg) O2 Sat by Pulse 98 97 97 Oximetry Oxygen Devices in Use Now: High Flow Nasal Cannula Appearance: Middle aged woman lying in bed in NAD Eyes: No Scleral Icterus Ears/Nose/Mouth/Throat: Mucous Membranes Moist, - - large tongue Neck: No Thyroid Enlargement, Masses Respiratory: - - Diminished BS Cardiovascular: - - S1S2 celina Abdominal: No Hepatosplenomegaly, - Lymphatic: No Axillary Adenopathy Extremities: No Clubbing, Cyanosis Skin: - - No rashes Neurological: Alert and Oriented x 3 Result Diagrams: 06/09/17 04:30 06/09/17 04:30 Additional Lab and Data: Lab Results 06/08/17 06/08/17 06/08/17 Range/Units 15:25 15:25 15:25 WBC 12.4 H (3.5-10.8) 10^3/ul RBC 3.43 L (4.0-5.4) 10^6/ul Hgb 11.0 L (12.0-16.0) g/dl Hct 33 L (35-47) % MCV 96 (80-97) fL MCH 32 H (27-31) pg MCHC 34 (31-36) g/dl RDW 15 (10.5-15) % Plt Count 189 (150-450) 10^3/ul MPV 8 (7.4-10.4) um3 Neut % (Auto) 79.1 (38-83) % Lymph % (Auto) 13.6 L (25-47) % Carson % (Auto) 6.6 (1-9) % Eos % (Auto) 0.3 (0-6) % Baso % (Auto) 0.4 (0-2) % Absolute Neuts (auto) 9.8 H (1.5-7.7) 10^3/ul Absolute Lymphs (auto) 1.7 (1.0-4.8) 10^3/ul Absolute Monos (auto) 0.8 (0-0.8) 10^3/ul Absolute Eos (auto) 0 (0-0.6) 10^3/ul Absolute Basos (auto) 0.1 (0-0.2) 10^3/ul Absolute Nucleated RBC 0.01 10^3/ul Nucleated RBC % 0.1 Sodium Pending Potassium 3.4 L (3.5-5.0) mmol/L Chloride 81 L (101-111) mmol/L Carbon Dioxide 30 (22-32) mmol/L Anion Gap Pending BUN 20 (6-24) mg/dL Creatinine 2.81 H (0.51-0.95) mg/dL Est GFR ( Amer) 22.2 (>60) Est GFR (Non-Af Amer) 17.3 (>60) BUN/Creatinine Ratio 7.1 L (8-20) Glucose 118 H (70-100) mg/dL Lactic Acid 0.6 (0.5-2.0) mmol/L Calcium 8.5 L (8.6-10.3) mg/dL Total Bilirubin 0.30 (0.2-1.0) mg/dL AST 22 (13-39) U/L ALT 20 (7-52) U/L Alkaline Phosphatase 58 (34-104) U/L Troponin I 0.03 (<0.04) ng/mL Total Protein 6.4 (6.4-8.9) g/dL Albumin 3.4 (3.2-5.2) g/dL Globulin 3.0 (2-4) g/dL Albumin/Globulin Ratio 1.1 (1-3) Microbiology and Other Data: Microbiology 06/08/17 19:50 Nasal Screen MRSA (PCR)(BRANDY) - Final Nasal Mrsa Negative Assess/Plan/Problems-Billing Assessment: 57 year old woman admitted with SOB and found to be fluid overload as she went home after dialysis and drank too much water and coke. - Patient Problems (1) CHF (congestive heart failure) Current Visit: Yes Status: Acute Code(s): I50.9 - HEART FAILURE, UNSPECIFIED SNOMED Code(s): 25059924 Comment: Likely secondary to significant volume overload after drinking too many fluids after dialysis. Much improved after getting emergent dialysis last night. Check CXR. Try to wean off vapotherm. (2) Hyponatremia syndrome Current Visit: Yes Status: Acute Code(s): E87.1 - HYPO-OSMOLALITY AND HYPONATREMIA SNOMED Code(s): 0349040 Comment: Again likely dilutional after volume overload with significant improvement after dialysis. (3) COPD (chronic obstructive pulmonary disease) Current Visit: No Status: Chronic Code(s): J44.9 - CHRONIC OBSTRUCTIVE PULMONARY DISEASE, UNSPECIFIED SNOMED Code(s): 78110754 Comment: Stable. Continue cuurent regimen. Not cause of her SOB right now. (4) ESRD (end stage renal disease) Current Visit: No Status: Chronic Code(s): N18.6 - END STAGE RENAL DISEASE SNOMED Code(s): 50349799 Comment: Completed HD in evening on 05/24. Next session planned for 05/27 (5) HTN (hypertension) Current Visit: No Status: Chronic Code(s): I10 - ESSENTIAL (PRIMARY) HYPERTENSION SNOMED Code(s): 38747668 Comment: BPs running high. Continue current regimen and consider adjustment if no improvement. (6) Type 2 diabetes mellitus Current Visit: No Status: Chronic Comment: Better control this morning. Continue Lantus and SSI. (7) DVT prophylaxis Current Visit: No Status: Acute Code(s): ECE5895 - SNOMED Code(s): 828166838 Comment: HSQ (8) Full code status Current Visit: No Status: Acute Code(s): Z78.9 - OTHER SPECIFIED HEALTH STATUS SNOMED Code(s): 905516073
--- NOTE | 2017-06-09 08:35 | RAD ---
INDICATION: Hyponatremia and congestive heart failure COMPARISON: Previous chest x-ray dated June 08, 2017 TECHNIQUE: Single AP portable view of the chest was obtained. FINDINGS: Image quality is compromised due to the relative inferiority of a portable chest x-ray. Similar the prior chest x-ray there is mild cardiomegaly. A longitudinally oriented line at the medial upper right lung is most consistent with an azygos fissure. The pulmonary vasculature is mildly engorged and indistinct but overall aeration of the lungs appears improved from the most recent chest x-ray. Visualized bones are normal for the patient's age. IMPRESSION: Again seen are mild signs of congestive heart failure but with slightly improved aeration from the previous day's chest x-ray.
[2017-06-09] MEDS: Insulin LISPRO* 1 UNITS UNIT SUBCUT SCH ×3 (08:57→17:33)
[2017-06-09] MEDS: Nicotine PATCH 21 MG/24 HR* PATCH TRANSDERM SCH (08:57)
[2017-06-09] MEDS: amLODIPine TAB* 5 MG PO SCH (08:59)
[2017-06-09] MEDS: Allopurinol TAB* 100 MG PO SCH (08:59)
[2017-06-09] MEDS: Sevelamer TAB* 800 MG PO SCH ×3 (08:59→17:45)
[2017-06-09] MEDS: Clopidogrel TAB* 75 MG PO SCH (09:00)
[2017-06-09] MEDS: Aspirin EC Low Dose* 81 MG TAB.EC PO SCH (09:00)
[2017-06-09] MEDS: predniSONE TAB* 5 MG PO SCH (09:00)
[2017-06-09] MEDS: Isosorbide Mononitrate ER TAB* 30 MG PO SCH (09:01)
[2017-06-09] MEDS: Insulin GLARGINE(*) 1 UNITS UNIT SUBCUT SCH (09:01)
[2017-06-09] MEDS: Calcium Carbonate CHEW TAB* 500 MG (TUMS) PO SCH (09:01)
[2017-06-09] MEDS: diPHENhydraMINE PO* 25 MG PO SCH (09:01)
[2017-06-09] MEDS: risperiDONE TAB* 2 MG PO SCH (09:33)
[2017-06-09] MEDS: Divalproex ER TAB(*) 500 MG PO SCH ×3 (09:33→21:10)
[2017-06-09] MEDS: Doxazosin TAB* 2 MG PO SCH (09:34)
[2017-06-09 11:07] LABS: BUN/Creatinine Ratio 8.1 (8-20); Calcium 8.3 mg/dL (8.6-10.3); EGFR Non-African American 14.8 (>60); Potassium 3.9 mmol/L (3.5-5.0)
[2017-06-09] MEDS ORDERED: Heparin DIALYSIS ONLY(*) 1,000 UNITS/ML VIAL DIALYSIS ONE (15:00)
[2017-06-09] MEDS: Atorvastatin* 10 MG TAB PO SCH (17:45)
[2017-06-09] MEDS: Nicotine Patch Removal NOTE FOLLOW UP SCH (21:10)
[2017-06-10] MEDS: Heparin VIAL(*) 5000 UNITS/ML VIAL (FIVE THOUSAND) SUBCUT SCH ×2 (05:25→14:09)
[2017-06-10] MEDS: Insulin LISPRO* 1 UNITS UNIT SUBCUT SCH ×3 (08:30→16:52)
[2017-06-10] MEDS: Nicotine PATCH 21 MG/24 HR* PATCH TRANSDERM SCH (08:58)
[2017-06-10] MEDS: amLODIPine TAB* 5 MG PO SCH (09:02)
[2017-06-10] MEDS: Atenolol TAB* 50 MG PO SCH ×2 (09:03→16:57)
[2017-06-10] MEDS: Calcium Carbonate CHEW TAB* 500 MG (TUMS) PO SCH (09:03)
[2017-06-10] MEDS: Isosorbide Mononitrate ER TAB* 30 MG PO SCH (09:03)
[2017-06-10] MEDS: Divalproex ER TAB(*) 500 MG PO SCH ×2 (09:05→14:07)
[2017-06-10] MEDS: Sevelamer TAB* 800 MG PO SCH ×3 (09:05→16:57)
[2017-06-10] MEDS: risperiDONE TAB* 2 MG PO SCH (09:05)
[2017-06-10] MEDS: Clopidogrel TAB* 75 MG PO SCH (09:05)
[2017-06-10] MEDS: Doxazosin TAB* 2 MG PO SCH (09:05)
[2017-06-10] MEDS: Allopurinol TAB* 100 MG PO SCH (09:06)
[2017-06-10] MEDS: diPHENhydraMINE PO* 25 MG PO SCH (09:06)
[2017-06-10] MEDS: predniSONE TAB* 5 MG PO SCH (09:06)
[2017-06-10] MEDS: Aspirin EC Low Dose* 81 MG TAB.EC PO SCH (09:06)
[2017-06-10] MEDS: Insulin GLARGINE(*) 1 UNITS UNIT SUBCUT SCH (09:07)
[2017-06-10 09:14] LABS: BUN/Creatinine Ratio 5.6 (8-20); Calcium 8.2 mg/dL (8.6-10.3); EGFR African American 17.8 (>60); EGFR Non-African American 13.9 (>60); Potassium 3.6 mmol/L (3.5-5.0)
[2017-06-10 14:32] LABS: Troponin I 0.05 ng/mL (<0.04)
[2017-06-10 15:31] VITALS: BP 117/47
[2017-06-10] MEDS: Atorvastatin* 10 MG TAB PO SCH (16:57)
--- NOTE | 2017-06-11 02:28 | DS ---
CC: Dr. Atkins; Dr. Henning * DISCHARGE SUMMARY: DATE OF ADMISSION: 06/08/17 DATE OF DISCHARGE: 06/10/17 PRIMARY CARE PROVIDER: Dr. Atkins. LEATHER CURRIER: Dr. Henning. PRIMARY DIAGNOSES: 1. Acute on chronic decompensated diastolic heart failure exacerbation. 2. Chronic hypoxic respiratory failure. SECONDARY DIAGNOSES: Include: 1. Chronic obstructive pulmonary disease, on home 2 to 3 L of oxygen. 2. End-stage renal disease, on hemodialysis, Friday, , Friday. 3. Atrial fibrillation. 4. Peripheral vascular disease. 5. Hypertension. 6. Type 2 diabetes. 7. Hyperlipidemia. 8. Gout. 9. Schizoaffective disorder. 10. Bipolar disorder. 11. History of coronary artery disease with myocardial infarction. MEDICATIONS ON DISCHARGE: Unchanged from admission, include: 1. Amlodipine 5 mg daily. 2. Aspirin 81 mg daily. 3. Allopurinol 100 mg daily. 4. Albuterol HFA 2 puffs every 4 hours as needed for shortness of breath or wheezing. 5. Acetaminophen 500 mg 3 times a day as needed for pain. 6. Benadryl 25 mg daily. 7. Clopidogrel 75 mg daily. 8. Tums Ultra 1000 mg daily. 9. Atenolol 100 mg in the morning and 50 mg in the evening. 10. Simvastatin 20 mg in the evening. 11. Renvela 800 mg 3 times a day with meals. 12. Risperidone 4 mg daily. 13. MiraLAX 1 pack daily as needed for constipation. 14. Nitroglycerin sublingual tab 0.4 mg every 5 minutes up to 3 times as needed for chest pain. 15. Imdur 30 mg daily. 16. Ipratropium nebulizer 0.5 mg inhaled every 6 hours as needed for shortness of breath or wheezing. 17. Glargine 10 units subcutaneously daily. 18. Doxazosin 4 mg daily. 19. Depakote ER 500 mg 3 times a day. 20. Guaifenesin 5 mL 3 times a day. 21. Sodium polystyrene 15 mg daily as needed as directed by dialysis. PERTINENT LABORATORY DATA: Sodium on presentation 116, on discharge 132. PROCEDURE PERFORMED DURING HOSPITAL STAY: Dialysis twice. HISTORY OF PRESENT ILLNESS AND HOSPITAL COURSE: A 57-year-old female with the past medical history as outlined in the history of present illness on the date of admission including history of diastolic heart failure; minimally depressed systolic function; end-stage renal disease on dialysis Friday, , and Friday; diabetes; as well as bipolar disorder who had reported drinking copious amounts of water including at least 1 gallon of water in addition to other free water, presented to the hospital short of breath, found fluid overloaded, requiring urgent dialysis. Additionally, she was found to have hyponatremia as indicated above, which improved with 2 consecutive dialysis sessions. On the day of discharge, the patient was ambulating back to her baseline oxygen requirement of 2 to 3 L nasal cannula. She felt asymptomatic. I confirmed with [facility] when her next dialysis is, 2 days from now on at 10:30 in the morning. There are no complications at the patient's hospital stay. She was advised at length about decreasing her fluid consumption at home. She should continue 1500 cc free water restriction. At followup, please; 1. Evaluate for continued adherence to volume restriction. 2. Adjust dialysis as necessary for fluid status. 3. Prednisone 5 mg discontinued, restart as deemed necessary. 4. Consider BMP to evaluate for continued stability of sodium, was 132 on the day of discharge. 5. No other specific labs or vitals that need followup. Reasons to return to the hospital include but not limited to recurrent or worsening symptoms including chest pain or shortness of breath, lightheadedness , loss of consciousness, near loss of consciousness, inability to obtain or tolerate medications discussed with the patient. She acknowledged understanding. TIME SPENT: Greater than 40 minutes was spent on the discharge of this patient , greater than half was spent [id number] with the patient. [id number]/[facility] #: [id number] SHERIE
== END 2017-06-10 17:45 | disposition home or self-care (01) | DRG 194 ==
LOC: ED 14:30 → ICU 17:24 → MED 06-09 13:55
PROVIDERS: ADMIT Internal Medicine; ATTEND Internal Medicine
PROC: 5A1D60Z (ICD-10-PCS; principal; 2017-06-08)
DX: I13.2 Hypertensive heart and chronic kidney disease with heart failure and with stage 5 chronic kidney disease, or end stage renal disease (principal); I50.33 Acute on chronic diastolic (congestive) heart failure; J96.11 Chronic respiratory failure with hypoxia; N18.6 End stage renal disease; E11.22 Type 2 diabetes mellitus with diabetic chronic kidney disease; E87.1 Hypo-osmolality and hyponatremia; I25.10 Atherosclerotic heart disease of native coronary artery without angina pectoris; J44.9 Chronic obstructive pulmonary disease, unspecified; I48.91 Unspecified atrial fibrillation; E11.51 Type 2 diabetes mellitus with diabetic peripheral angiopathy without gangrene; E78.5 Hyperlipidemia, unspecified; M10.9 Gout, unspecified; F31.9 Bipolar disorder, unspecified; F25.9 Schizoaffective disorder, unspecified; F17.210 Nicotine dependence, cigarettes, uncomplicated; Z99.81 Dependence on supplemental oxygen; Z99.2 Dependence on renal dialysis; I25.2 Old myocardial infarction; Z84.1 Family history of disorders of kidney and ureter; Z82.49 Family history of ischemic heart disease and other diseases of the circulatory system; Z88.5 Allergy status to narcotic agent; Z88.8 Allergy status to other drugs, medicaments and biological substances; Z79.1 Long term (current) use of non-steroidal anti-inflammatories (NSAID); Z79.02 Long term (current) use of antithrombotics/antiplatelets; Z79.82 Long term (current) use of aspirin; Z79.4 Long term (current) use of insulin; Z79.52 Long term (current) use of systemic steroids; Z79.899 Other long term (current) drug therapy
CPT/HCPCS: 36415; 71010; 80048; 80053; 80164; 81003; 81015; 82533; 83605; 83880; 83930; 83935; 84300; 84443; 84484; 85025; 85610; 87040; 87086; 87641; 90935; 93005; 94640; 94760; A9270-GY; G0257; J0330; J1644; J1940; J2270; J2930; J7512

== ENCOUNTER 2017-06-21 06:48 | Emergency (ER) | payer OTHER ==
[2017-06-21 07:37] VITALS: BP 131/76
--- NOTE | 2017-06-21 08:07 | ED ---
Dedrick Monroe Nikita, scribed for yAaan Richard MD on 06/21/17 at 0739 . Throat Pain/Nasal Congestion - HPI Summary HPI Summary: This patient is a 57 year old F BIBA presenting to ED with a chief complaint of epistaxis since 0530 this morning. Pt is continuously patting at her nose with a towel. The CC is described as continuous on the R nares. The patient rates the pain 0/10 in severity. Symptoms aggravated by nothing. Symptoms alleviated by nothing. Pt reports she is on Plavix. Pt reports the heater was not on in the house when she awoke. - History of Current Complaint Chief Complaint: EDEpistaxis Time Seen by Provider: 06/21/17 07:21 Hx Obtained From: Patient Onset/Duration: Sudden Onset - 1530 this morning at R nares, Lasting Hours, Still Present - Allergies/Home Medications Allergies/Adverse Reactions: Allergies Allergy/AdvReac Type Severity Reaction Status Date / Time Chlorpromazine Allergy Unknown Verified 06/21/17 07:11 [From Thorazine] Reaction Details Codeine Allergy Unknown Verified 06/21/17 07:11 [From Tylenol with Codeine Reaction #3] Details Lorazepam [From Ativan] Allergy Unknown Verified 06/21/17 07:11 Reaction Details Warfarin [From Coumadin] Allergy Unknown Verified 06/21/17 07:11 Reaction Details PMH/Surg Hx/FS Hx/Imm Hx Endocrine/Hematology History: Reports: Hx Diabetes Cardiovascular History: Reports: Hx Congestive Heart Failure, Hx Coronary Artery Disease, Hx Hypercholesterolemia, Hx Hypertension, Hx Myocardial Infarction - 12 years ago, Hx Peripheral Vascular Disease, Other Cardiovascular Problems/Disorders - HEART FAILURE Denies: Hx Pacemaker/ICD Respiratory History: Reports: Hx Chronic Obstructive Pulmonary Disease (COPD) - on 2L O2 at home (pt reports not always using due to difficulty w/ O2 tank), Hx Seasonal Allergies, Hx Sleep Apnea Denies: Hx Asthma History: Reports: Hx Chronic Renal Failure, Hx Dialysis - has been on dialysis for "over a year" per patient, Hx Renal Disease Musculoskeletal History: Reports: Hx Gout, Other Musculoskeletal History - using cane Sensory History: Reports: Hx Contacts or Glasses - reading Denies: Hx Cataracts, Hx Eye Injury, Hx Eye Prosthesis, Hx Glaucoma, Hx Legally Blind, Hx Macular Degeneration, Hx Vision Problem, Hx Deafness, Hx Hearing Aid, Hx Hearing Problem, Other Sensory Impairments Opthamlomology History: Reports: Hx Contacts or Glasses - reading Denies: Hx Cataracts, Hx Eye Injury, Hx Eye Prosthesis, Hx Glaucoma, Hx Legally Blind, Hx Macular Degeneration, Hx Vision Problem, Other Sensory Impairments Psychiatric History: Reports: Hx Schizophrenia, Hx Bipolar Disorder Denies: Hx Eating Disorder - Cancer History Hx Chemotherapy: No Hx Radiation Therapy: No - Surgical History Surgery Procedure, Year, and Place: TOE AMPUTATION, OVARIAN CYST REMOVED Hx Anesthesia Reactions: No - Immunization History Date of Tetanus Vaccine: Unk Date of Influenza Vaccine: Fall 2014 Infectious Disease History: No Infectious Disease History: Denies: Hx Clostridium Difficile, Hx Hepatitis, Hx Human Immunodeficiency Virus (HIV), Hx of Known/Suspected MRSA, Hx Shingles, Hx Tuberculosis, History Other Infectious Disease, Traveled Outside the [place] in Last 30 Days - Family History Known Family History: Positive: Other - No FHx of breast CA Negative: Cardiac Disease, Hypertension, Diabetes Family History: No FHx of breast CA - Social History Alcohol Use: Rare Hx Substance Use: No Substance Use Type: Reports: None Hx Tobacco Use: Yes Smoking Status (MU): Current Some Day Smoker Type: Cigarettes Have You Smoked in the Last Year: Yes Review of Systems Negative: Fever Positive: Epistaxis - R nares All Other Systems Reviewed And Are Negative: Yes Physical Exam Triage Information Reviewed: Yes Vital Signs On Initial Exam: Initial Vitals Temp Pulse Resp BP Pulse Ox 97.7 F 76 16 153/69 98 06/21/17 07:08 06/21/17 07:08 06/21/17 07:08 06/21/17 07:08 06/21/17 07:08 Vital Signs Reviewed: Yes Appearance: Positive: Well-Appearing, No Pain Distress Skin: Positive: Warm, Skin Color Reflects Adequate Perfusion, Dry Head/Face: Positive: Normal Head/Face Inspection Eyes: Positive: Normal Neck: Positive: Supple, Nontender Respiratory/Lung Sounds: Positive: Clear to Auscultation, Breath Sounds Present Cardiovascular: Positive: RRR Abdomen Description: Positive: Nontender, Soft Bowel Sounds: Positive: Present Musculoskeletal: Positive: Normal Neurological: Positive: Normal, Sensory/Motor Intact, Alert, Oriented to Person Place, Time, CN Intact II-III Psychiatric: Positive: Affect/Mood Appropriate - Manny Coma Scale Coma Scale Total: 15 Diagnostics - Vital Signs Vital Signs Temp Pulse Resp BP Pulse Ox 06/21/17 07:14 77 131/76 100 06/21/17 07:11 80 134/56 100 06/21/17 07:08 97.7 F 76 16 153/69 98 - Laboratory Lab Statement: Any lab studies that have been ordered have been reviewed, and results considered in the medical decision making process. EENT Course/Dx - Course Course Of Treatment: Ms. Tomas presented with a minor nosebleed that started during the night. She is on xarelto. I tried to apply a'tongue depressor clip' but it would not stay on and she was continuously worrying at her nose. I then suggested I use suction and take a look for the source but the sight of the epistaxis tray equipment seemed to frighten her and she insisted on going home. I tried to convince her to stay and have this taken care of definitively but she would not. - Diagnoses Provider Diagnoses: Epistaxis Discharge - Discharge Plan Condition: Stable Disposition: HOME Patient Education Materials: Nosebleed (ED) Referrals: Fe Atkins MD [Primary Care Provider] - 3 Days The documentation as recorded by the Dedrick echavarria Nikita accurately reflects the service I personally performed and the decisions made by me, Ayaan Richard MD.
== END 2017-06-21 08:06 | disposition home or self-care (01) ==
LOC: ED 06:48
DX: R04.0 Epistaxis (principal); E11.9 Type 2 diabetes mellitus without complications; I50.9 Heart failure, unspecified; I25.10 Atherosclerotic heart disease of native coronary artery without angina pectoris; E78.00 Pure hypercholesterolemia, unspecified; I73.9 Peripheral vascular disease, unspecified; I12.9 Hypertensive chronic kidney disease with stage 1 through stage 4 chronic kidney disease, or unspecified chronic kidney disease; E11.22 Type 2 diabetes mellitus with diabetic chronic kidney disease; N18.9 Chronic kidney disease, unspecified; Z99.2 Dependence on renal dialysis; F20.9 Schizophrenia, unspecified; F31.9 Bipolar disorder, unspecified; F17.210 Nicotine dependence, cigarettes, uncomplicated; Z79.02 Long term (current) use of antithrombotics/antiplatelets; Z53.29 Procedure and treatment not carried out because of patient's decision for other reasons
CPT/HCPCS: 99281

== ENCOUNTER 2017-06-21 09:50 | Emergency (ER) | payer OTHER ==
[2017-06-21 10:07] VITALS: BP 161/69
[2017-06-21] MEDS ORDERED: Phenylephrine 0.5% NASAL* BTL ONE (10:46)
[2017-06-21] MEDS ORDERED: Lidocaine 4% TOPICAL* 50 ML TOP.SOLN ONE (10:46)
[2017-06-21] MEDS ORDERED: Lidocaine 2% JELLY* 6 ML JELLY TOPICAL ONE (11:51)
--- NOTE | 2017-06-21 14:07 | ED ---
Dedrick Monroe Nikita, scribed for Ayaan Richard MD on 06/21/17 at 1101 . Throat Pain/Nasal Congestion - HPI Summary HPI Summary: This patient is a 57 year old F presenting to ED with a chief complaint of epistaxis since 0530 this morning. The CC is described as in the R nares. The patient rates the pain 0/10 in severity. Symptoms aggravated by nothing. Symptoms alleviated by nothing. Pt was in the ED earlier today who left AMA refusing care then was sent back to the ED by dialysis. - History of Current Complaint Chief Complaint: EDEpistaxis Time Seen by Provider: 06/21/17 10:14 Hx Obtained From: Patient Onset/Duration: Sudden Onset, Lasting Hours - since 05, Still Present - Allergies/Home Medications Allergies/Adverse Reactions: Allergies Allergy/AdvReac Type Severity Reaction Status Date / Time Chlorpromazine Allergy Unknown Verified 06/21/17 07:11 [From Thorazine] Reaction Details Codeine Allergy Unknown Verified 06/21/17 07:11 [From Tylenol with Codeine Reaction #3] Details Lorazepam [From Ativan] Allergy Unknown Verified 06/21/17 07:11 Reaction Details Warfarin [From Coumadin] Allergy Unknown Verified 06/21/17 07:11 Reaction Details PMH/Surg Hx/FS Hx/Imm Hx Endocrine/Hematology History: Reports: Hx Diabetes Cardiovascular History: Reports: Hx Congestive Heart Failure, Hx Coronary Artery Disease, Hx Hypercholesterolemia, Hx Hypertension, Hx Myocardial Infarction - 12 years ago, Hx Peripheral Vascular Disease, Other Cardiovascular Problems/Disorders - HEART FAILURE Denies: Hx Pacemaker/ICD Respiratory History: Reports: Hx Chronic Obstructive Pulmonary Disease (COPD) - on 2L O2 at home (pt reports not always using due to difficulty w/ O2 tank), Hx Seasonal Allergies, Hx Sleep Apnea Denies: Hx Asthma History: Reports: Hx Chronic Renal Failure, Hx Dialysis - has been on dialysis for "over a year" per patient, Hx Renal Disease Musculoskeletal History: Reports: Hx Gout, Other Musculoskeletal History - using cane Sensory History: Reports: Hx Contacts or Glasses - reading Denies: Hx Cataracts, Hx Eye Injury, Hx Eye Prosthesis, Hx Glaucoma, Hx Legally Blind, Hx Macular Degeneration, Hx Vision Problem, Hx Deafness, Hx Hearing Aid, Hx Hearing Problem, Other Sensory Impairments Opthamlomology History: Reports: Hx Contacts or Glasses - reading Denies: Hx Cataracts, Hx Eye Injury, Hx Eye Prosthesis, Hx Glaucoma, Hx Legally Blind, Hx Macular Degeneration, Hx Vision Problem, Other Sensory Impairments Psychiatric History: Reports: Hx Schizophrenia, Hx Bipolar Disorder Denies: Hx Eating Disorder - Cancer History Hx Chemotherapy: No Hx Radiation Therapy: No - Surgical History Surgery Procedure, Year, and Place: TOE AMPUTATION, OVARIAN CYST REMOVED Hx Anesthesia Reactions: No - Immunization History Date of Tetanus Vaccine: Unk Date of Influenza Vaccine: Fall 2014 Infectious Disease History: No Infectious Disease History: Denies: Hx Clostridium Difficile, Hx Hepatitis, Hx Human Immunodeficiency Virus (HIV), Hx of Known/Suspected MRSA, Hx Shingles, Hx Tuberculosis, History Other Infectious Disease, Traveled Outside the [place] in Last 30 Days - Family History Known Family History: Positive: None, Other - No FHx of breast CA Negative: Cardiac Disease, Hypertension, Diabetes Family History: No FHx of breast CA - Social History Alcohol Use: Rare Hx Substance Use: No Substance Use Type: Reports: None Hx Tobacco Use: Yes Smoking Status (MU): Current Some Day Smoker Type: Cigarettes Have You Smoked in the Last Year: Yes Review of Systems Negative: Fever Positive: Epistaxis - R nares All Other Systems Reviewed And Are Negative: Yes Physical Exam Triage Information Reviewed: Yes Vital Signs On Initial Exam: Initial Vitals Temp Pulse Resp BP Pulse Ox 98.1 F 76 18 161/69 93 06/21/17 10:02 06/21/17 10:02 06/21/17 10:02 06/21/17 10:02 06/21/17 10:02 Vital Signs Reviewed: Yes Appearance: Positive: Well-Appearing, No Pain Distress Skin: Positive: Warm, Skin Color Reflects Adequate Perfusion, Dry Head/Face: Positive: Normal Head/Face Inspection Eyes: Positive: Normal ENT: Positive: Other - active bleeding in the R septum Neck: Positive: Supple, Nontender Respiratory/Lung Sounds: Positive: Clear to Auscultation, Breath Sounds Present Cardiovascular: Positive: RRR Abdomen Description: Positive: Nontender, Soft Bowel Sounds: Positive: Present Musculoskeletal: Positive: Normal Neurological: Positive: Normal, Sensory/Motor Intact, Alert, Oriented to Person Place, Time, CN Intact II-III Psychiatric: Positive: Affect/Mood Appropriate Diagnostics - Vital Signs Vital Signs Temp Pulse Resp BP Pulse Ox 06/21/17 10:02 98.1 F 76 18 161/69 93 - Laboratory Lab Statement: Any lab studies that have been ordered have been reviewed, and results considered in the medical decision making process. EENT Course/Dx - Course Course Of Treatment: Ms. Tomas was able to tolerate me loosely packing her nose with cotton soaked with 4% lidocaine and neosynephrine. This failed to stop the bleeding however and I had to place a nasal tampon. She tolerated this surprisingly well and it worked. She was given a script for keflex and F/ U with ENT. - Diagnoses Provider Diagnoses: Anterior epistaxis Discharge - Discharge Plan Condition: Stable Disposition: HOME Prescriptions: Cephalexin CAP* [Keflex CAP*] 500 mg PO TID #20 cap Patient Education Materials: Nosebleed (ED) Referrals: Emir Booker MD [Medical Doctor] - (Follow up with Dr. Booker in 2-3 days.) The documentation as recorded by the Dedrick echavarria Nikita accurately reflects the service I personally performed and the decisions made by me, Ayaan Richard MD.
== END 2017-06-21 12:37 | disposition home or self-care (01) ==
LOC: ED 09:50
DX: R04.0 Epistaxis (principal); Z72.0 Tobacco use
CPT/HCPCS: 30901; 99282; A9270-GY

== ENCOUNTER 2017-07-05 02:55 | Emergency (ER) | payer OTHER ==
[2017-07-05] MEDS ORDERED: predniSONE TAB* 20 MG PO ONE (03:14)
[2017-07-05 03:28] VITALS: BP 151/49
[2017-07-05] MEDS ORDERED: Albuterol/Ipratropium NEB.SOL* Albuterol 2.5 MG/Ipratropium 0.5 MG 3 ML ONE (03:29)
[2017-07-05] MEDS: Albuterol/Ipratropium NEB.SOL* Albuterol 2.5 MG/Ipratropium 0.5 MG 3 ML INH SCH ×2 (03:33→03:35)
--- NOTE | 2017-07-05 11:11 | RAD ---
Indication: Shortness of breath. Heart failure. Chronic obstructive pulmonary disease. Comparison: June 01, 2017 Technique: Upright AP 0325 hours Report: Cardiomegaly, prominent ill-defined central pulmonary vasculature and perihilar opacities as well as diffuse prominence of the interstitial markings and small bilateral pleural effusions. Accessory azygos fissure in the medial RIGHT upper lung zone. Negative for pneumothorax. IMPRESSION: Pulmonary edema.
--- NOTE | 2017-07-05 23:57 | ED ---
Homa Monroe Rebecca, scribed for French Pino on 07/05/17 at 0354 . Shortness of Breath - HPI Summary HPI Summary: Pt is a 57 y/o F BIBA who presents to ED c/o worsening SOB characterized as dyspnea at rest. 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 Sx aggravated and alleviated by nothing. Denies cough and fever. Pt is currently on dialysis and reports she does not elevated her legs as often as she should, stating chronic edema as a result. - History of Current Complaint Chief Complaint: EDShortnessOfBreath Time Seen by Provider: 07/05/17 02:57 Hx Obtained From: Patient Onset/Duration: Still Present, Worse Since - 220 Dyspnea At: Rest Aggrevating Factors: Nothing Alleviating Factors: Nothing Associated Signs & Symptoms: Negative - Allergy/Home Medications Allergies/Adverse Reactions: Allergies Allergy/AdvReac Type Severity Reaction Status Date / Time Chlorpromazine Allergy Unknown Verified 06/21/17 07:11 [From Thorazine] Reaction Details Codeine Allergy Unknown Verified 06/21/17 07:11 [From Tylenol with Codeine Reaction #3] Details Lorazepam [From Ativan] Allergy Unknown Verified 06/21/17 07:11 Reaction Details Warfarin [From Coumadin] Allergy Unknown Verified 06/21/17 07:11 Reaction Details PMH/Surg Hx/FS Hx/Imm Hx Endocrine/Hematology History: Reports: Hx Diabetes Cardiovascular History: Reports: Hx Congestive Heart Failure, Hx Coronary Artery Disease, Hx Hypercholesterolemia, Hx Hypertension, Hx Myocardial Infarction - 12 years ago, Hx Peripheral Vascular Disease, Other Cardiovascular Problems/Disorders - HEART FAILURE Denies: Hx Pacemaker/ICD Respiratory History: Reports: Hx Chronic Obstructive Pulmonary Disease (COPD) - on 2L O2 at home (pt reports not always using due to difficulty w/ O2 tank), Hx Seasonal Allergies, Hx Sleep Apnea Denies: Hx Asthma History: Reports: Hx Chronic Renal Failure, Hx Dialysis - has been on dialysis for "over a year" per patient, Hx Renal Disease Musculoskeletal History: Reports: Hx Gout, Other Musculoskeletal History - using cane Sensory History: Reports: Hx Contacts or Glasses - reading Denies: Hx Cataracts, Hx Eye Injury, Hx Eye Prosthesis, Hx Glaucoma, Hx Legally Blind, Hx Macular Degeneration, Hx Vision Problem, Hx Deafness, Hx Hearing Aid, Hx Hearing Problem, Other Sensory Impairments Opthamlomology History: Reports: Hx Contacts or Glasses - reading Denies: Hx Cataracts, Hx Eye Injury, Hx Eye Prosthesis, Hx Glaucoma, Hx Legally Blind, Hx Macular Degeneration, Hx Vision Problem, Other Sensory Impairments Psychiatric History: Reports: Hx Schizophrenia, Hx Bipolar Disorder Denies: Hx Eating Disorder - Cancer History Hx Chemotherapy: No Hx Radiation Therapy: No - Surgical History Surgery Procedure, Year, and Place: TOE AMPUTATION, OVARIAN CYST REMOVED Hx Anesthesia Reactions: No - Immunization History Date of Tetanus Vaccine: Unk Date of Influenza Vaccine: Fall 2014 Infectious Disease History: No Infectious Disease History: Denies: Hx Clostridium Difficile, Hx Hepatitis, Hx Human Immunodeficiency Virus (HIV), Hx of Known/Suspected MRSA, Hx Shingles, Hx Tuberculosis, History Other Infectious Disease, Traveled Outside the [place] in Last 30 Days - Family History Known Family History: Positive: Other - No FHx of breast CA Negative: Cardiac Disease, Hypertension, Diabetes Family History: No FHx of breast CA - Social History Alcohol Use: Rare Hx Substance Use: No Substance Use Type: Reports: None Hx Tobacco Use: Yes Smoking Status (MU): Current Some Day Smoker Type: Cigarettes Have You Smoked in the Last Year: Yes Review of Systems Negative: Fever Positive: Shortness Of Breath. Negative: Cough Positive: Edema All Other Systems Reviewed And Are Negative: Yes Physical Exam - Summary Physical Exam Summary: Appearance: Well appearing, no pain distress Skin: warm, dry, reflects adequate perfusion Head/face: normal Eyes: EOMI, PAULA ENT: normal Neck: supple, nontender Respiratory: breath sounds present, poor air entry, occasional wheeze Cardiovascular: RRR, pulses symmetrical Abdomen: nontender, soft Bowel: present Musculoskeletal: strength/ROM intact, bilateral pedal edema Neuro: normal, sensory motor intact, A&Ox3 Triage Information Reviewed: Yes Vital Signs On Initial Exam: Initial Vitals Temp Pulse Resp BP Pulse Ox 98.0 F 90 14 151/49 100 07/05/17 02:55 07/05/17 02:55 07/05/17 02:55 07/05/17 02:55 07/05/17 02:55 Vital Signs Reviewed: Yes - [place] Coma Scale Coma Scale Total: 15 Diagnostics - Vital Signs Vital Signs Temp Pulse Resp BP Pulse Ox 07/05/17 03:38 18 99 07/05/17 02:55 98.0 F 90 14 151/49 100 - Laboratory Lab Statement: Any lab studies that have been ordered have been reviewed, and results considered in the medical decision making process. - Radiology CXR Xray Interpretation: Positive (See Comments) - Pleural effusion Radiology Interpretation Completed By: ED Physician Course/Dx - Course Assessment/Plan: Pt is a 57 y/o F BIBA who presents to ED c/o worsening SOB characterized as dyspnea at rest. 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 Sx aggravated and alleviated by nothing. Denies cough and fever. Pt is currently on dialysis and reports she does not elevated her legs as often as she should, stating chronic edema as a result. CXR, as read by ED physician, reveals pleural effusion. In the ED course, pt received Prednisone and Duoneb Tx. She has decided to sign out AMA. Risks were explained to the pt and understanding of the risks was verbalized. She understands and agrees. Elevated BP noted and advised to f/u with PCP. - Diagnoses Provider Diagnoses: End stage renal disease, CHF (congestive heart failure), COPD exacerbation Discharge - Discharge Plan Condition: Stable Disposition: AGAINST MEDICAL ADVICE The documentation as recorded by the Homa echavarria Rebecca accurately reflects the service I personally performed and the decisions made by , French Pino.
== END 2017-07-05 04:26 | disposition left against medical advice (07) ==
LOC: ED 02:55
DX: E11.22 Type 2 diabetes mellitus with diabetic chronic kidney disease (principal); I12.0 Hypertensive chronic kidney disease with stage 5 chronic kidney disease or end stage renal disease; N18.6 End stage renal disease; Z99.2 Dependence on renal dialysis; I50.9 Heart failure, unspecified; J44.1 Chronic obstructive pulmonary disease with (acute) exacerbation; E78.00 Pure hypercholesterolemia, unspecified; Z88.5 Allergy status to narcotic agent; Z88.8 Allergy status to other drugs, medicaments and biological substances; Z89.429 Acquired absence of other toe(s), unspecified side; Z72.0 Tobacco use
CPT/HCPCS: 71010; 94640; 99283; A9270-GY

== ENCOUNTER 2017-07-06 23:00 | Inpatient (IN) | payer OTHER ==
[2017-07-06] MEDS ORDERED: Albuterol/Ipratropium NEB.SOL* Albuterol 2.5 MG/Ipratropium 0.5 MG 3 ML INH ONE (23:18)
[2017-07-06 23:30] LABS: Add Diff/Slide Review? Slide Review Added; Comments Flag Yes; Hematocrit 23 % (35-47); Hemoglobin 7.5 g/dl (12.0-16.0); Mean Corpuscular HGB Conc 33 g/dl (31-36); Mean Corpuscular Hemoglobin 32 pg (27-31); Mean Corpuscular Volume 98 fL (80-97); Mean Platelet Volume 7 um3 (7.4-10.4); Red Blood Count 2.35 10^6/ul (4.0-5.4); Red Cell Distribution Width 16 % (10.5-15); White Blood Count 14.6 10^3/ul (3.5-10.8)
[2017-07-06 23:42] LABS: Albumin 3.2 g/dL (3.2-5.2); Calcium 8.4 mg/dL (8.6-10.3); EGFR African American 16.5 (>60); EGFR Non-African American 12.8 (>60); Magnesium 3.2 mg/dL (1.9-2.7); Potassium 4.7 mmol/L (3.5-5.0); Total Bilirubin 0.2 mg/dL (0.2-1.0); Total Protein 6.2 g/dL (6.4-8.9); Troponin I 0.03 ng/mL (<0.04)
[2017-07-07 00:18] LABS: EPAP 8; FIO2 100; IPAP 14
[2017-07-07 00:21] LABS: PCO2 Arterial 81 mmHg (35-45)
[2017-07-07] MEDS ORDERED: cefTRIAXone(*) 1 GM in NS 0.9% 50 ML* 50 ML IVPB ONE (00:36)
[2017-07-07] MEDS ORDERED: Azithromycin IV(*) 500 MG in NS 0.9% 250 ML* 250 ML IVPB ONE (00:37)
[2017-07-07] MEDS ORDERED: Furosemide IV* 10 MG/ML 2 ML VIAL (20 MG) IV SLOW PU ONE (00:44)
[2017-07-07] MEDS ORDERED: Furosemide IV* 10 MG/ML 10 ML VIAL (100 MG) IV ONE (00:44)
[2017-07-07] MEDS ORDERED: Morphine INJ* 4 MG/ML 1 ML CARPUJECT IV PRN (00:44)
[2017-07-07] MEDS ORDERED: Albuterol 2.5 MG/3 ML NEB.SOL* (0.083%) INH PRN (00:58)
--- NOTE | 2017-07-07 00:58 | ED ---
Cecilio Monroe Angela, scribed for French Pino on 07/06/17 at 2320 . Shortness of Breath - HPI Summary HPI Summary: This pt is a 57 y/o female BIBA presenting to [facility] c/o shortness of breath since today. Pt is on CPAP. En route, pt was given 2 duonebs, 10 mg of dexamethasone, and 2 mg of mag drip. She states her last dialysis was 5 days ago , on Friday. - History of Current Complaint Chief Complaint: EDShortnessOfBreath Hx Obtained From: Patient Onset/Duration: Lasting Hours Associated Signs & Symptoms: Wheezing - Allergy/Home Medications Allergies/Adverse Reactions: Allergies Allergy/AdvReac Type Severity Reaction Status Date / Time Chlorpromazine Allergy Unknown Verified 06/21/17 07:11 [From Thorazine] Reaction Details Codeine Allergy Unknown Verified 06/21/17 07:11 [From Tylenol with Codeine Reaction #3] Details Lorazepam [From Ativan] Allergy Unknown Verified 06/21/17 07:11 Reaction Details Warfarin [From Coumadin] Allergy Unknown Verified 06/21/17 07:11 Reaction Details PMH/Surg Hx/FS Hx/Imm Hx Endocrine/Hematology History: Reports: Hx Diabetes Cardiovascular History: Reports: Hx Congestive Heart Failure, Hx Coronary Artery Disease, Hx Hypercholesterolemia, Hx Hypertension, Hx Myocardial Infarction - 12 years ago, Hx Peripheral Vascular Disease, Other Cardiovascular Problems/Disorders - HEART FAILURE Denies: Hx Pacemaker/ICD Respiratory History: Reports: Hx Chronic Obstructive Pulmonary Disease (COPD) - on 2L O2 at home (pt reports not always using due to difficulty w/ O2 tank), Hx Seasonal Allergies, Hx Sleep Apnea Denies: Hx Asthma History: Reports: Hx Chronic Renal Failure, Hx Dialysis - has been on dialysis for "over a year" per patient, Hx Renal Disease Musculoskeletal History: Reports: Hx Gout, Other Musculoskeletal History - using cane Sensory History: Reports: Hx Contacts or Glasses - reading Denies: Hx Cataracts, Hx Eye Injury, Hx Eye Prosthesis, Hx Glaucoma, Hx Legally Blind, Hx Macular Degeneration, Hx Vision Problem, Hx Deafness, Hx Hearing Aid, Hx Hearing Problem, Other Sensory Impairments Opthamlomology History: Reports: Hx Contacts or Glasses - reading Denies: Hx Cataracts, Hx Eye Injury, Hx Eye Prosthesis, Hx Glaucoma, Hx Legally Blind, Hx Macular Degeneration, Hx Vision Problem, Other Sensory Impairments Psychiatric History: Reports: Hx Schizophrenia, Hx Bipolar Disorder Denies: Hx Eating Disorder - Cancer History Hx Chemotherapy: No Hx Radiation Therapy: No - Surgical History Surgery Procedure, Year, and Place: TOE AMPUTATION, OVARIAN CYST REMOVED Hx Anesthesia Reactions: No - Immunization History Date of Tetanus Vaccine: Unk Date of Influenza Vaccine: Fall 2014 Infectious Disease History: Unable to Obtain/Confirm Infectious Disease History: Denies: Hx Clostridium Difficile, Hx Hepatitis, Hx Human Immunodeficiency Virus (HIV), Hx of Known/Suspected MRSA, Hx Shingles, Hx Tuberculosis, History Other Infectious Disease, Traveled Outside the [place] in Last 30 Days - Family History Known Family History: Positive: Other - No FHx of breast [place] Negative: Cardiac Disease, Hypertension, Diabetes Family History: No FHx of breast CA - Social History Alcohol Use: Rare Hx Substance Use: No Substance Use Type: Reports: None Hx Tobacco Use: Yes Smoking Status (MU): Current Some Day Smoker Type: Cigarettes Have You Smoked in the Last Year: Yes Review of Systems Negative: Fever, Chills Negative: Chest Pain Positive: Shortness Of Breath Negative: Abdominal Pain, Vomiting, Diarrhea Genitourinary: Negative All Other Systems Reviewed And Are Negative: Yes Physical Exam Triage Information Reviewed: Yes Vital Signs On Initial Exam: Initial Vitals Temp Pulse Resp BP Pulse Ox 96.6 F 104 32 133/106 100 07/06/17 23:03 07/06/17 23:03 07/06/17 23:03 07/06/17 23:03 07/06/17 23:03 Vital Signs Reviewed: Yes Appearance: Positive: No Pain Distress, Ill-Appearing Skin: Positive: Warm, Skin Color Reflects Adequate Perfusion, Dry Head/Face: Positive: Normal Head/Face Inspection Eyes: Positive: EOMI, PAULA ENT: Positive: Normal ENT inspection Neck: Positive: Supple, Nontender, Other: - JVD Respiratory/Lung Sounds: Positive: Breath Sounds Present, Wheezes - bilateral wheezing, Other - poor airway Cardiovascular: Positive: RRR, Pulses are Symmetrical in both Upper and Lower Extremities Abdomen Description: Positive: Nontender, Soft Bowel Sounds: Positive: Present Musculoskeletal: Positive: Strength/ROM Intact, Edema Left, Edema Right, Other - bilateral pedal edema Neurological: Positive: Normal, Sensory/Motor Intact, Alert, Oriented to Person Place, Time Diagnostics - Vital Signs Vital Signs Temp Pulse Resp BP Pulse Ox 07/06/17 23:03 96.6 F 104 32 133/106 100 - Laboratory Result Diagrams: 07/06/17 23:07 07/06/17 23:07 Lab Statement: Any lab studies that have been ordered have been reviewed, and results considered in the medical decision making process. - Radiology Chest XR Xray Interpretation: Positive (See Comments) - XR shows pneumonia and CHF. Radiology Interpretation Completed By: ED Physician - EKG 2305 Cardiac Rate: NL EKG Rhythm: Sinus Rhythm EKG Interpretation: No acute changes. Course/Dx - Course Assessment/Plan: Pt is a 57 y/o female BIBA presenting to [facility] c/o shortness of breath since today. Bloodwork, EKG, and chest XR were obtained. Chest XR shows pneumonia and CHF. I discussed the pt's case with Dr. Kate, who has accepted to admit the pt. - Diagnoses Provider Diagnoses: COPD exacerbation, CHF (congestive heart failure), Renal failure, Pneumonia, Anemia - Physician Notifications Discussed Care of Patient With: Hussein Kate Instructed by Provider To: Other - I discussed the pt's case with Dr. Kate, who has accepted the pt for admission. - Critical Care Time Critical Care Time: 30-74 min - 30 minutes Discharge - Discharge Plan Condition: Stable Disposition: ADMITTED TO [facility] Referrals: Fe Atkins MD [Primary Care Provider] - The documentation as recorded by the Cecilio echavarria Angela accurately reflects the service I personally performed and the decisions made by , French Pino.
--- NOTE | 2017-07-07 01:07 | HP ---
H&P (Free Text) History and Physical: PCP: Alexandria Atkins MD Date/Time: 07/07/2017 0020 CC: SOB HPI: Mrs Tomas is a 57YO female HX ESRD-HD last dialyzed Friday who also has a history of fluid restriction non-adherence. She reports SOB starting this AM and gradually worsening throughout the day until she decided to call EMS. She did have some diaphoresis while on the phone with 911, but denies chest pain , N/V, F/C, cough, congestion, palpitations, light-headedness, or other issues. She denies excessive drinking, but when asked what she did drink today replies, "I don't know." She was last admitted for non-adherence ~1 month ago, very narrowly avoiding intubation prior to emergent dialysis being initiated. PMedHx ESRD-HD TueThuSat COPD CHF PAOD AFIB HTN DM2 HLD gout schizoaffective disorder bipolar 1 disorder CAD/GA Ambulatory Orders Allopurinol TAB* [Zyloprim 100 MG TAB*] 100 mg PO DAILY 11/07/15 Aspirin EC Low Dose* [Ecotrin EC Low Dose 81 MG*] 81 mg PO DAILY 11/07/15 amLODIPine TAB* [Norvasc 5 mg TAB*] 5 mg PO DAILY 11/07/15 Acetaminophen 500 mg PO Q8HR PRN 03/03/17 Clopidogrel TAB* [Plavix TAB*] 75 mg PO DAILY 03/03/17 Divalproex ER TAB(*) [Depakote ER TAB(*)] 500 mg PO TID 03/03/17 Doxazosin Mesylate [Doxazosin] 4 mg PO DAILY 03/03/17 Ipratropium 0.5MG/2.5ML NEB* [Atrovent 0.5 MG NEB.LUZ*] 0.5 mg INH Q6H PRN 03/03 Isosorbide Mononitrate ER TAB* [Imdur ER TAB*] 30 mg PO DAILY 03/03/17 Nitroglycerin TAB 0.4 MG* 0.4 mg SL Q5M PRN 03/03/17 Polyethylene Glycol 3350 BTL* [Miralax] 1 pow PO DAILY PRN 03/03/17 Risperidone [Risperdal M-Tab-] 4 mg PO DAILY 03/03/17 Sevelamer TAB* [Renvela TAB*] 800 mg PO TID WITH MEALS 03/03/17 Atenolol TAB* [Tenormin TAB* 50 MG] 50 mg PO QPM tab 03/08/17 Atenolol TAB* [Tenormin TAB* 50 MG] 100 mg PO QAM #60 tab 03/08/17 Calcium Carbonate (Antacid) [Tums Ultra 1000] 1,000 mg PO DAILY 05/24/17 Diphenhydramine HCl 25 mg PO DAILY 05/24/17 Insulin Glargine [Basaglar Kwikpen] 10 units SUBCUT DAILY 05/24/17 Simvastatin [Zocor 5 MG-] 20 mg PO 1700 05/24/17 Albuterol HFA INHALER* [Ventolin HFA Inhaler*] 2 puff INH Q4H PRN #1 ea Sodium Polystyrene Sulfonate [Sodium Polystyrene Sulfon] 15 gm PO DAILY PRN #0 05/27/17 guaiFENesin LIQ* [Robitussin*] 5 ml PO Q4H PRN #1 udc 05/27/17 Cephalexin CAP* [Keflex CAP*] 500 mg PO TID #20 cap 06/21/17 Allergies Chlorpromazine [From Thorazine] Allergy (Verified 06/21/17 07:11) Unknown Reaction Details Codeine [From Tylenol with Codeine #3] Allergy (Verified 06/21/17 07:11) Unknown Reaction Details Lorazepam [From Ativan] Allergy (Verified 06/21/17 07:11) Unknown Reaction Details Warfarin [From Coumadin] Allergy (Verified 06/21/17 07:11) Unknown Reaction Details PSurgHx ectopic excision LUE AV fistula SocHx: 1PPD cigarettes w/ >30PYHX, rare alcohol, occasional marijuana but denies other recreational drugs; FamHx: Mother: ESRD; Father: CAD ROS: as above, otherwise reviewed and all were negative vitals: Vital Signs Temp 35.9 C 07/06/17 23:03 Pulse 85 07/07/17 00:11 Resp 24 07/07/17 00:11 BP 134/72 07/06/17 23:19 Pulse Ox 100 07/07/17 00:11 Intake & Output 09/24/17 09/24/17 09/25/17 11:59 23:59 11:59 Weight 77.111 kg Constitutional: NAD, normally developed, obese black female HEENM: atraumatic; sclera/conjunctiva: non-icteric/clear; hearing: clinically intact; oropharynx: clear, mucosa moist Neck: soft tissue: non-tender; thyroid: normal Pulmonary: BiPap in place; fine cellophane crackles B bases w/ scant scattered crackles, fair aeration, no accessory muscle use CV: RR/RR, normal S1S2, no carotid bruit, moderate jugular venous distention, 2 + B DP/PT, 3+ BLE edema Abdominal: soft, non-distended, non-tender, no rebound/guarding/rigidity, normoactive bowel sounds, no hepatosplenomegaly or masses, no costovertebral angle tenderness Musculoskeletal: general: grossly intact; gait: stable Integumental: normal appearance and texture of exposed skin Psychiatric orientation: AA&O to PPS affect: calm mood: cooperative eye contact: fair content: unreliable responses: timely insight: poor Testing: Lab Results 07/06/17 07/06/17 07/06/17 Range/Units 23:07 23:07 23:07 WBC 14.6 H (3.5-10.8) 10^3/ul RBC 2.35 L (4.0-5.4) 10^6/ul Hgb 7.5 L (12.0-16.0) g/dl Hct 23 L (35-47) % MCV 98 H (80-97) fL MCH 32 H (27-31) pg MCHC 33 (31-36) g/dl RDW 16 H (10.5-15) % Plt Count 252 (150-450) 10^3/ul MPV 7 L (7.4-10.4) um3 Neut % (Auto) 69.1 (38-83) % Lymph % (Auto) 15.7 L (25-47) % Sanders % (Auto) 13.8 H (1-9) % Eos % (Auto) 0.8 (0-6) % Baso % (Auto) 0.6 (0-2) % Absolute Neuts (auto) 10.1 H (1.5-7.7) 10^3/ul Absolute Lymphs (auto) 2.3 (1.0-4.8) 10^3/ul Absolute Monos (auto) 2.0 H (0-0.8) 10^3/ul Absolute Eos (auto) 0.1 (0-0.6) 10^3/ul Absolute Basos (auto) 0.1 (0-0.2) 10^3/ul Absolute Nucleated RBC 0.02 10^3/ul Nucleated RBC % 0.1 INR (Anticoag Therapy) 0.84 L (0.89-1.11) APTT 32.2 (26.0-36.3) seconds Patient Temperature ABG pH (7.35-7.45) ABG pH (Temp Correct) ABG pCO2 (35-45) mmHg ABG pCO2 (Temp Corrct ABG pO2 (80-100) mmHg ABG pO2 (Temp Correct ABG HCO3 (19-31) mmol/L ABG O2 Saturation (95-98) % ABG Base Excess (-2.0-2.0) Respiration Rate O2 Delivery Device Ventilator Type Vent Mode FiO2 Inspiratory Time PEEP Pressure Support Pressure Control EPAP IPAP BiPAP Sodium (133-145) mmol/L Potassium (3.5-5.0) mmol/L Chloride (101-111) mmol/L Carbon Dioxide (22-32) mmol/L Anion Gap (2-11) mmol/L BUN (6-24) mg/dL Creatinine (0.51-0.95) mg/dL Est GFR ( Amer) (>60) Est GFR (Non-Af Amer) (>60) BUN/Creatinine Ratio (8-20) Glucose (70-100) mg/dL Lactic Acid (0.5-2.0) mmol/L Calcium (8.6-10.3) mg/dL Magnesium (1.9-2.7) mg/dL Total Bilirubin (0.2-1.0) mg/dL AST (13-39) U/L ALT (7-52) U/L Alkaline Phosphatase (34-104) U/L Troponin I (<0.04) ng/mL B-Natriuretic Peptide 3316 H ( - 100) pg/mL Total Protein (6.4-8.9) g/dL Albumin (3.2-5.2) g/dL Globulin (2-4) g/dL Albumin/Globulin Ratio (1-3) 07/06/17 07/06/17 07/07/17 Range/Units 23:07 23:07 00:10 WBC (3.5-10.8) 10^3/ul RBC (4.0-5.4) 10^6/ul Hgb (12.0-16.0) g/dl Hct (35-47) % MCV (80-97) fL MCH (27-31) pg MCHC (31-36) g/dl RDW (10.5-15) % Plt Count (150-450) 10^3/ul MPV (7.4-10.4) um3 Neut % (Auto) (38-83) % Lymph % (Auto) (25-47) % Sanders % (Auto) (1-9) % Eos % (Auto) (0-6) % Baso % (Auto) (0-2) % Absolute Neuts (auto) (1.5-7.7) 10^3/ul Absolute Lymphs (auto) (1.0-4.8) 10^3/ul Absolute Monos (auto) (0-0.8) 10^3/ul Absolute Eos (auto) (0-0.6) 10^3/ul Absolute Basos (auto) (0-0.2) 10^3/ul Absolute Nucleated RBC 10^3/ul Nucleated RBC % INR (Anticoag Therapy) (0.89-1.11) APTT (26.0-36.3) seconds Patient Temperature Not Reportable ABG pH 7.26 L (7.35-7.45) ABG pH (Temp Correct) Not Reportable ABG pCO2 81 H* (35-45) mmHg ABG pCO2 (Temp Corrct Not Reportable ABG pO2 372 H (80-100) mmHg ABG pO2 (Temp Correct Not Reportable ABG HCO3 31.2 H (19-31) mmol/L ABG O2 Saturation 99.9 H (95-98) % ABG Base Excess 8.0 H (-2.0-2.0) Respiration Rate Not Reportable O2 Delivery Device bipap Ventilator Type Not Reportable Vent Mode s/t FiO2 100 Inspiratory Time Not Reportable PEEP Not Reportable Pressure Support Not Reportable Pressure Control Not Reportable EPAP 8 IPAP 14 BiPAP s/t Sodium 130 L (133-145) mmol/L Potassium 4.7 (3.5-5.0) mmol/L Chloride 94 L (101-111) mmol/L Carbon Dioxide 33 H (22-32) mmol/L Anion Gap 3 (2-11) mmol/L BUN 18 (6-24) mg/dL Creatinine 3.63 H (0.51-0.95) mg/dL Est GFR ( Amer) 16.5 (>60) Est GFR (Non-Af Amer) 12.8 (>60) BUN/Creatinine Ratio 5.0 L (8-20) Glucose 182 H (70-100) mg/dL Lactic Acid 0.8 (0.5-2.0) mmol/L Calcium 8.4 L (8.6-10.3) mg/dL Magnesium 3.2 H (1.9-2.7) mg/dL Total Bilirubin 0.20 (0.2-1.0) mg/dL AST 20 (13-39) U/L ALT 17 (7-52) U/L Alkaline Phosphatase 60 (34-104) U/L Troponin I 0.03 (<0.04) ng/mL B-Natriuretic Peptide ( - 100) pg/mL Total Protein 6.2 L (6.4-8.9) g/dL Albumin 3.2 (3.2-5.2) g/dL Globulin 3.0 (2-4) g/dL Albumin/Globulin Ratio 1.1 (1-3) ECG, personally reviewed: NSR rate 97, no ischemia CXR, personally reviewed: pulmonary vascular congestion Impression: 57F HX DM2, ESRD-HD presents volume overloaded 2nd suspected fluid restriction non-adherence DIAGNOSIS & PLAN Primary volume overloaded 2nd suspected fluid restriction non-adherence : ESRD-HD last attended Friday : nitroGTT titrated to systolic of 100 : morphine IV PRN : 120mg furosemide IV x1 : BiPap : consult Yana Henning MD in AM to consider urgent dialysis : ICU monitoring : supportive care acute hypoxic hypercarbic respiratory failure 2nd above : NIPPV protocol : NPO Secondary COPD : smoking cessation counselled & advised, low motivation : albuterol nebs : mometasone/formoterol : tiotropium : incentive spirometry : supplemental oxygen PRN HX CHF : daily weights : strict I&Os : review meds once reconciled PAOD/HLD : heart healthy diet once taking PO : review meds once reconciled AFIB : review meds once reconciled HTN : review meds once reconciled DM2 : update A1c : review meds once reconciled : basal/correctional insulin : consistent carb diet once taking PO gout : review meds once reconciled schizoaffective disorder : review meds once reconciled bipolar 1 disorder : review meds once reconciled CAD/GA : review meds once reconciled Admission Rational: inpatient for critically-ill patient who potentially could require intubation should she further decompensate or fail to improve on NIPPV protocol; inappropriate for outpatient setting DVTp: SCDs & heparin SQ Code Status: full
[2017-07-07] MEDS ORDERED: nitroGLYCERIN DRIP* 250 ML ONE (01:19)
[2017-07-07] MEDS: Albuterol 2.5 MG/3 ML NEB.SOL* (0.083%) INH SCH ×2 (01:27→07:35)
[2017-07-07] MEDS: nitroGLYCERIN DRIP* 250 ML IV SCH ×2 (01:42→07:14)
[2017-07-07] MEDS: Insulin LISPRO* 1 UNITS UNIT SUBCUT SCH ×6 (02:16→21:24)
[2017-07-07 02:37] LABS: EPAP 8; FIO2 35; IPAP 18
[2017-07-07 02:43] LABS: PCO2 Arterial 59 mmHg (35-45)
--- NOTE | 2017-07-07 07:45 | RAD ---
Indication: Shortness of breath. Single frontal view of the chest performed at 2322 hours was reviewed. Comparison is made with previous exam dated July 05, 2017. No mediastinal shift is noted. Cardiomegaly is noted. Interstitial edema consistent with CHF is noted. There is increasing right pleural effusion and underlying infiltrate in the right base cannot be excluded. IMPRESSION: PULMONARY EDEMA WITH RIGHT PLEURAL EFFUSION. UNDERLYING RIGHT BASILAR INFILTRATE IS NOT EXCLUDED.
[2017-07-07] MEDS: Mometasone/Formoter 200/5 MDI INH SCH ×2 (08:15→19:45)
[2017-07-07] MEDS: Tiotropium CAP.INH* CAP.INH/18 MCG (USE ORDER SET !) INH SCH (08:15)
--- NOTE | 2017-07-07 08:51 | PN ---
Subjective Date of Service: 07/07/17 Interval History: HOSPITALIST PROGRESS NOTE Patient seen and examined at bedside. She feels better this AM. Still has some dyspnea, but less intense than last night. She gets upset because everyone is telling her she is drinking too much. She denies it, but when asked to give a number, states she drinks 10-15 glasses of water a day, and sometimes the same amount of mana anson cans, although she admits she has cut down on the soda. States she's compliant with her diet and dyalisis schedule. Family History: Unchanged from Admission Social History: Unchanged from Admission Past Medical History: Unchanged from Admission Objective Active Medications: Albuterol (Ventolin 2.5 Mg/3 Ml Neb.May*) 2.5 mg INH Q2H PRN PRN Reason: SOB/WHEEZING Device (Tiotropium Inhaler Device*) 1 each INH ONCE ONE Stop: 07/07/17 09:01 Nitroglycerin/Dextrose (Nitroglycerin Drip*) 250 mls @ 30 mls/hr IV .(Initial Rate) NISA PRN Reason: 50 MCG/MIN Last Admin: 07/07/17 07:14 Dose: 80 mls/hr Insulin Glargine (Lantus(*)) 10 units SUBCUT 2100 [facility] Insulin Human Lispro (Humalog*) 0 units SUBCUT Q4H NISA PRN Reason: Protocol Last Admin: 07/07/17 07:06 Dose: 3 units Mometasone Furoate/Formoterol Fumar (Dulera 200/5 Mdi*) 2 puff INH BID [facility] Last Admin: 07/07/17 08:15 Dose: 2 puff Morphine Sulfate (Morphine Inj (Syringe)*) 2 mg IV Q2H PRN PRN Reason: SOB/WHEEZING Tiotropium Hawley (Spiriva Cap.Inh*) 1 cap INH DAILY [facility] Last Admin: 07/07/17 08:15 Dose: 1 cap Vital Signs 07/07/17 07/07/17 07/07/17 04:00 04:01 04:15 Temperature 98.2 F Pulse Rate 77 75 75 Respiratory 15 17 17 Rate Blood Pressure 142/73 142/70 (mmHg) O2 Sat by Pulse 99 98 99 Oximetry 07/07/17 07/07/17 07/07/17 07:30 07:31 07:37 Temperature Pulse Rate 76 74 74 Respiratory 17 15 17 Rate Blood Pressure 157/68 (mmHg) O2 Sat by Pulse 100 100 99 Oximetry Oxygen Devices in Use Now: CPAP/BiPAP Appearance: Middle aged lady lying in bed in NAD. Eyes: No Scleral Icterus Ears/Nose/Mouth/Throat: Mucous Membranes Moist Neck: Trachea Midline Respiratory: Symmetrical Chest Expansion and Respiratory Effort, - - BS+ bilaterally with bibasilar crackles Cardiovascular: RRR - Normal S1 and S2 Abdominal: NL Sounds; No Tenderness; No Distention Extremities: - - Bilateral moderate to severe pitting edema to LE Neurological: Alert and Oriented x 3, NL Muscle Strength and Tone Lines/Tubes/Other Access: Clean, Dry and Intact Peripheral IV Nutrition: Taking PO's Result Diagrams: 07/06/17 23:07 07/06/17 23:07 Assess/Plan/Problems-Billing Assessment: Mrs. Tomas is a 57yo F with PMH of ESRD on HD, COPD, diastolic CHF, PAD, PAF, HTN, type 2 DM, HLD, gout, CAD, schizoaffective disorder, bipolar disorder, who presented to ED with c/o dyspnea, found to have another episode of fluid overload. - Patient Problems (1) Acute hypercapnic respiratory failure Comment: - She responded well to BiPAP - her CO2 went down and pH is back to normal. - Will release from BiPAP for now and continue to monitor. (2) Fluid overload Comment: - Secondary to non compliance with fluid restriction. She continues to drink large amounts of fluid at home, despite being educated about it. - Unclear if her psychiatric diagnosis playing a role on her polydypsia. Will request MHU evaluation. - She'll be dyalised today. (3) COPD (chronic obstructive pulmonary disease) Comment: - Stable at this time. - Continue bronchodilators. (4) Type 2 diabetes mellitus Comment: - Continue Lantus and Lispro SS. (5) DVT prophylaxis Comment: - SQ heparin. (6) Full code status Status and Disposition: Inpatient for fluid overload and respiratory failure requiring >48h for stabilization.
[2017-07-07] MEDS ORDERED: Spiriva Inhaler DEVICE* 1 EACH DEVICE INH ONE (09:00)
[2017-07-07] MEDS ORDERED: Heparin DIALYSIS ONLY(*) 1,000 UNITS/ML VIAL DIALYSIS ONE (11:00)
[2017-07-07] MEDS: Insulin GLARGINE(*) 1 UNITS UNIT SUBCUT SCH (21:25)
--- NOTE | 2017-07-07 21:40 | CONS ---
Amended report to enter date of consultation. PSYCHIATRIC CONSULTATION: DATE OF CONSULT: 07/07/2017. ATTENDING PHYSICIAN: Dr. Loraine Velazquez. CONSULTING PHYSICIAN: Dr. George Mendez. REASON FOR CONSULT: Psychogenic polydipsia. SUBJECTIVE HISTORY: The patient is a 57-year-old, single, female with a history of end-stage renal disease and bipolar disorder, who is admitted to the hospital secondary to nonadherence with her fluid restriction program resulting in fluid overload, shortness of breath, and diaphoresis. Apparently, I spoke with Dr. Velazquez, who is the primary provider, and I am told that the patient has a history of bipolar disorder. This is her fourth admission since April of 2017 in the same setting of nonadherence with fluid restriction. According to her family, she has cans of mana anson, which are empty and lined up in her apartment. She admitted to the primary team that she averages between 10 and 15 glasses of water per day with about 5 cans of mana anson. She has had a 9-pound weight gain since her last admission 2 weeks ago and she has had 2 emergency room visits in between. It is suspected that the weight gain is secondary to fluid consumption. Currently, the patient lives alone, the primary team tried referring her to assisted living in February, but she would not accept referral to detention and therefore ended up back in her apartment where she has limited social support. The primary team is concerned that it might be psychogenic polydipsia, which is leading to this presentation. When I meet with the patient, she is lying down in her ICU room, having just completed dialysis. She is calm and cooperative, but seems to have impaired insight into the issue. She seems surprised when I bring up the topic of her over consumption of fluids telling me that she was unaware that this is an issue. This would seem to contradict the primary care's well-documented assertion that they have had multiple discussions with her. At one point, she does ask why a psychiatrist is seeing her and she asked me if I am attempting to have her admitted to the psych roman against her will, which I denied. She seems genuinely surprised, however, to learn that her behaviors with respect to fluid consumption are problematic in this way. PAST PSYCHIATRIC HISTORY: The patient has a history of schizoaffective bipolar disorder. She sees Dr. Stas Gaytan at the [facility]. Currently, she is on a combination of Depakote 500 mg t.i.d. and Risperdal 4 mg nightly. She denies any history of past psychiatric hospitalizations and denies any history of suicidal or homicidal ideation. PAST MEDICAL HISTORY: Significant for end-stage renal disease, she does receive hemodialysis on Tuesdays, , and Saturdays. She has COPD; CHF; atrial fibrillation; hypertension; diabetes, type 2; gout; coronary artery disease with history of myocardial infarction. MEDICATIONS: Currently, she takes: 1. Allopurinol 100 mg daily. 2. Aspirin 81 mg daily. 3. Amlodipine 5 mg daily. 4. Tylenol as needed for pain. 5. Plavix 75 mg daily. 6. Depakote 500 mg t.i.d. 7. Doxazosin 4 mg p.o. daily. 8. Ipratropium 0.5 nebulized inhaled q.6 hours as a p.r.n. for wheezing. 9. Imdur ER 30 mg daily. 10. Nitroglycerin 0.4 mg up to 3 times in succession q.5 minutes as a p.r.n. for chest pain. 11. MiraLAX 1 packet p.o. daily as a p.r.n. for constipation. 12. Risperdal 4 mg daily. 13. Renvela 800 mg t.i.d. 14. Atenolol 50 mg p.m. and 100 mg a.m. 15. TUMS as needed for heartburn. 16. Benadryl 25 mg p.o. daily. 17. Insulin glargine 10 units subcutaneously daily. 18. Zocor 20 mg daily. 19. Ventolin inhaler 2 puffs inhaled q.4 hours for wheezing. 20. Sodium polystyrene sulfonate 15 g p.o. daily as a p.r.n. 21. Robitussin 5 mL p.o. q.4h. p.r.n. for cough. 22. Keflex 500 mg p.o. t.i.d. ALLERGIES: Include Thorazine, Tylenol with Codeine, Ativan, and Coumadin. SOCIAL HISTORY: The patient lives in a small apartment. She has a 30-year- pack history of cigarettes, occasional cannabis, but denies other illicit drugs , and only rarely drinks alcohol. She has never been . She does have 1 son, who resides in [facility]. The patient is from the [place], [place] area, but she lives alone. She did have a niece and nephew, who were close with her and visiting, but they apparently had a recent falling out and she cannot rely on them for social support. Currently, she does have some support in the community from a [employer] that she attends here in [place]. MENTAL STATUS EXAM: The patient is a middle-aged, female in a patient gown, sitting up in bed, appearing to be somewhat older than her stated age. Her eyes showed some yellowing. She is calm, comfortable, fairly easy to establish a rapport with, and she is cooperative. Speech is slow, but fluent. Mood appears to be euthymic with full affect. Though process is linear. Thought content is significant for her interest in being discharged from the hospital. She is denying suicidal or homicidal ideations. She denies auditory or visual hallucinations. Insight and judgment appear to be poor given the fact that she keeps drinking despite the medical sequelae being caused by her fluid overload. Cognitively, she is awake and alert with what would appear to be a low average intellect by virtue of her limited vocabulary. DIAGNOSES: Erie I: Schizoaffective disorder, bipolar type. Erie II: Deferred. ASSESSMENT: The patient is a 57-year-old, single, female with history of schizoaffective bipolar disorder, who is admitted to the hospital due to noncompliance with her fluid restriction resulting in fluid overload and pulmonary distress. 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 Looking at her medications, I cannot see any that would be associated with increased fluid intake. I am thinking that fpc placement would be beneficial under these circumstances given the fact that she does not seem to understand the risks of returning to the community and continuing to drink. Psychiatry does not believe that she currently has medical capacity to decline this intervention. RECOMMENDATIONS: The patient is not homicidal nor suicidal nor does she require inpatient psychiatric stabilization. My recommendation is that she be referred to detention facility where they will restrict her fluid intake. At this time, I do not believe that the patient has capacity to decline this given her limited insight and judgment and given the fact that she does not seem to understand the incredible risks associated with her recent behaviors. Psychiatry will continue to follow the patient. Please do not hesitate to contact us with any further questions. Thank you for the interesting consult. [id number] #: [id number] SHERIE
[2017-07-08] MEDS: Tiotropium CAP.INH* CAP.INH/18 MCG (USE ORDER SET !) INH SCH (07:35)
[2017-07-08] MEDS: Mometasone/Formoter 200/5 MDI INH SCH ×2 (07:35→19:41)
[2017-07-08] MEDS ORDERED: Albuterol HFA INHALER* 8 gm MDI INH PRN (08:12)
[2017-07-08] MEDS ORDERED: guaiFENesin LIQ* 100 MG/5 ML UDC PO PRN (08:12)
[2017-07-08] MEDS ORDERED: Polyethylene Glycol 3350* 17 GM PACKET PO PRN (08:12)
[2017-07-08] MEDS ORDERED: Nitroglycerin TAB 0.4 MG* 0.4 MG TAB SL PRN (08:12)
[2017-07-08] MEDS ORDERED: Ipratropium 0.5MG/2.5ML NEB* 0.5 MG/2.5 ML NEB.SOLN INH PRN (08:12)
[2017-07-08] MEDS ORDERED: diPHENhydraMINE PO* 25 MG PO SCH (09:00)
[2017-07-08] MEDS ORDERED: Clopidogrel TAB* 75 MG PO SCH (09:00)
[2017-07-08] MEDS: Insulin LISPRO* 1 UNITS UNIT SUBCUT SCH ×4 (09:09→20:44)
[2017-07-08 09:24] LABS: Hematocrit 22 % (35-47); Hemoglobin 7.4 g/dl (12.0-16.0); Mean Corpuscular HGB Conc 33 g/dl (31-36); Mean Corpuscular Hemoglobin 33 pg (27-31); Mean Corpuscular Volume 97 fL (80-97); Mean Platelet Volume 7 um3 (7.4-10.4); Red Blood Count 2.28 10^6/ul (4.0-5.4); Red Cell Distribution Width 16 % (10.5-15)
[2017-07-08] MEDS: Aspirin EC Low Dose* 81 MG TAB.EC PO SCH (10:35)
[2017-07-08] MEDS: Allopurinol TAB* 100 MG PO SCH (10:35)
[2017-07-08] MEDS: amLODIPine TAB* 5 MG PO SCH (10:35)
[2017-07-08] MEDS: Atenolol TAB* 50 MG PO SCH ×2 (10:36→17:57)
[2017-07-08] MEDS: Calcium Carbonate CHEW TAB* 500 MG (TUMS) PO SCH (10:36)
[2017-07-08] MEDS: Divalproex ER TAB(*) 500 MG PO SCH ×3 (10:37→20:34)
[2017-07-08] MEDS: Doxazosin TAB* 2 MG PO SCH (10:37)
[2017-07-08] MEDS: risperiDONE-M * 1 MG TAB.ORADIS PO SCH (10:38)
[2017-07-08] MEDS: Isosorbide Mononitrate ER TAB* 30 MG PO SCH (10:38)
--- NOTE | 2017-07-08 12:31 | PN ---
Subjective Date of Service: 07/08/17 Interval History: HOSPITALIST PROGRESS NOTE Patient seen and examined at bedside. She feels much better today. Still has some dyspnea with exertion, but feels comfortable. Denies chest pain or palpitations. Very open to conversation today : states she's "addicted to drinking fluids", even with when she's not thirsty. Agreeable with SNF placement. Family History: Unchanged from Admission Social History: Unchanged from Admission Past Medical History: Unchanged from Admission Objective Active Medications: Albuterol (Ventolin 2.5 Mg/3 Ml Neb.Mya*) 2.5 mg INH Q2H PRN PRN Reason: SOB/WHEEZING Albuterol (Ventolin Hfa Inhaler*) 2 puff INH Q4H PRN PRN Reason: SOB/WHEEZING Allopurinol (Zyloprim Tab*) 100 mg PO DAILY [facility] Last Admin: 07/08/17 10:35 Dose: 100 mg Amlodipine Besylate (Norvasc Tab*) 5 mg PO DAILY [facility] Last Admin: 07/08/17 10:35 Dose: 5 mg Aspirin (Aspirin Ec Low Dose*) 81 mg PO DAILY [facility] Last Admin: 07/08/17 10:35 Dose: 81 mg Atenolol (Tenormin Tab*) 100 mg PO QAM [facility] Last Admin: 07/08/17 10:36 Dose: 100 mg Atenolol (Tenormin Tab*) 50 mg PO QPM [facility] Atorvastatin Calcium (Lipitor*) 10 mg PO 1700 [facility] Calcium Carbonate (Tums*) 1,000 mg PO DAILY [facility] Last Admin: 07/08/17 10:36 Dose: 1,000 mg Divalproex Sodium (Depakote Er Tab(*)) 500 mg PO TID [facility] Last Admin: 07/08/17 10:37 Dose: 500 mg Doxazosin Mesylate (Cardura Tab*) 4 mg PO DAILY [facility] Last Admin: 07/08/17 10:37 Dose: 4 mg Guaifenesin (Robitussin*) 5 ml PO Q4H PRN PRN Reason: COUGH Insulin Glargine (Lantus(*)) 10 units SUBCUT 2100 [facility] Last Admin: 07/07/17 21:25 Dose: 10 unit Insulin Human Lispro (Humalog*) 0 units SUBCUT ACHS [facility] PRN Reason: Protocol Last Admin: 07/08/17 09:09 Dose: Not Given Ipratropium [place] (Atrovent 0.5 Mg Neb.May*) 0.5 mg INH Q6H PRN PRN Reason: SOB/WHEEZING Isosorbide Mononitrate (Imdur Er Tab*) 30 mg PO DAILY [facility] Last Admin: 07/08/17 10:38 Dose: 30 mg Mometasone Furoate/Formoterol Fumar (Dulera 200/5 Mdi*) 2 puff INH BID [facility] Last Admin: 07/08/17 07:35 Dose: 2 puff Morphine Sulfate (Morphine Inj (Syringe)*) 2 mg IV Q2H PRN PRN Reason: SOB/WHEEZING Nitroglycerin (Nitroglycerin Tab 0.4 Mg*) 0.4 mg SL Q5M PRN PRN Reason: Chest Pain Polyethylene Glycol/Electrolytes (Miralax*) 17 gm PO DAILY PRN PRN Reason: CONSTIPATION Risperidone (Risperdal-M Tab *) 4 mg PO DAILY [facility] Last Admin: 07/08/17 10:38 Dose: 4 mg Sevelamer Carbonate (Renvela Tab*) 800 mg PO TID WITH MEALS [facility] Tiotropium [place] (Spiriva Cap.Inh*) 1 cap INH DAILY [facility] Last Admin: 07/08/17 07:35 Dose: 1 cap Vital Signs 07/08/17 07/08/17 11:00 12:00 Temperature 98.4 F Pulse Rate 73 Respiratory 16 Rate Blood Pressure 144/86 (mmHg) O2 Sat by Pulse 100 Oximetry Oxygen Devices in Use Now: Nasal Cannula Appearance: Pleasant lady sittin up in recliner in [facility]. Eyes: No Scleral Icterus Ears/Nose/Mouth/Throat: Mucous Membranes Moist Neck: Trachea Midline Respiratory: Symmetrical Chest Expansion and Respiratory Effort, - - BS+ bilaterally with bibasilar crackles Cardiovascular: RRR - Normal S1 and S2 Abdominal: NL Sounds; No Tenderness; No Distention Extremities: - - Mild to moderate bilateral LE pitting edema Neurological: Alert and Oriented x 3, NL Muscle Strength and Tone Lines/Tubes/Other Access: Clean, Dry and Intact Peripheral IV Nutrition: Taking PO's Result Diagrams: 07/08/17 09:04 07/06/17 23:07 Assess/Plan/Problems-Billing Assessment: Mrs. Tomas is a 57yo F with PMH of ESRD on HD, COPD, diastolic CHF, PAD, PAF, HTN, type 2 DM, HLD, gout, CAD, schizoaffective disorder, bipolar disorder, who presented to ED with c/o dyspnea, found to have another episode of fluid overload. - Patient Problems (1) Acute hypercapnic respiratory failure Comment: - She responded well to BiPAP - her CO2 went down and pH is back to normal. - Much improved. - Continue supplemental O2. (2) Fluid overload Comment: - Secondary to non compliance with fluid restriction. She continues to drink large amounts of fluid at home, despite being educated about it. - Responded well to dyalisis yesterday. Will continue MWF schedule while in the hospital. (3) Psychogenic polydipsia Comment: - Patient acknowledges it as a problem now. - Psych input much appreciated - recommended SNF placement as they'd be able to restrict her fluid intake. [place] patient does not have capacity due to her limited insight and judgment. (4) COPD (chronic obstructive pulmonary disease) Comment: - Stable at this time. - Continue bronchodilators. (5) Type 2 diabetes mellitus Comment: - Continue Lantus and Lispro SS. (6) DVT prophylaxis Comment: - SQ heparin. (7) Full code status Status and Disposition: Inpatient for fluid overload and respiratory failure requiring >48h for stabilization. Will transfer to medical floor.
[2017-07-08] MEDS: Sevelamer TAB* 800 MG PO SCH ×2 (15:23→17:57)
[2017-07-08] MEDS: Atorvastatin* 10 MG TAB PO SCH (17:57)
[2017-07-08] MEDS: Insulin GLARGINE(*) 1 UNITS UNIT SUBCUT SCH (20:46)
[2017-07-09] MEDS ORDERED: Nitroglycerin 2% OINT* 1 GM PAK TOPICAL ONE (06:13)
[2017-07-09] MEDS ORDERED: Nitroglycerin 2% OINT* 1 GM PAK ONE (06:19)
[2017-07-09] MEDS ORDERED: Nitroglycerin 2% OINT* 1 GM PAK TOPICAL SCH (07:00)
[2017-07-09] MEDS: Mometasone/Formoter 200/5 MDI INH SCH ×2 (07:50→20:05)
[2017-07-09] MEDS: Tiotropium CAP.INH* CAP.INH/18 MCG (USE ORDER SET !) INH SCH (07:50)
[2017-07-09] MEDS: Insulin LISPRO* 1 UNITS UNIT SUBCUT SCH ×4 (08:08→20:35)
[2017-07-09 09:38] LABS: Hematocrit 22 % (35-47); Hemoglobin 7.3 g/dl (12.0-16.0); Mean Corpuscular HGB Conc 33 g/dl (31-36); Mean Corpuscular Hemoglobin 32 pg (27-31); Mean Corpuscular Volume 96 fL (80-97); Mean Platelet Volume 7 um3 (7.4-10.4); Red Cell Distribution Width 15 % (10.5-15); White Blood Count 8.8 10^3/ul (3.5-10.8)
[2017-07-09] MEDS: Divalproex ER TAB(*) 500 MG PO SCH ×3 (09:54→20:57)
[2017-07-09] MEDS: Sevelamer TAB* 800 MG PO SCH ×3 (09:54→17:40)
[2017-07-09 09:55] LABS: Calcium 8.3 mg/dL (8.6-10.3); EGFR African American 18.6 (>60); EGFR Non-African American 14.5 (>60); Potassium 4.4 mmol/L (3.5-5.0)
[2017-07-09] MEDS ORDERED: Heparin DIALYSIS ONLY(*) 1,000 UNITS/ML VIAL DIALYSIS ONE (10:00)
[2017-07-09 10:39] LABS: Globulin 2.9 g/dL (2-4); Total Bilirubin 0.2 mg/dL (0.2-1.0); Total Protein 5.9 g/dL (6.4-8.9)
[2017-07-09] MEDS: Allopurinol TAB* 100 MG PO SCH (12:47)
[2017-07-09] MEDS: risperiDONE-M * 1 MG TAB.ORADIS PO SCH (12:48)
[2017-07-09] MEDS: Calcium Carbonate CHEW TAB* 500 MG (TUMS) PO SCH (12:48)
[2017-07-09] MEDS: Atenolol TAB* 50 MG PO SCH ×2 (12:48→17:40)
[2017-07-09] MEDS: Doxazosin TAB* 2 MG PO SCH (12:48)
[2017-07-09] MEDS: Isosorbide Mononitrate ER TAB* 30 MG PO SCH (12:48)
[2017-07-09] MEDS: Aspirin EC Low Dose* 81 MG TAB.EC PO SCH (12:48)
[2017-07-09] MEDS: amLODIPine TAB* 5 MG PO SCH (13:25)
[2017-07-09 14:20] LABS: Folate 13.56 ng/mL (>3.99)
--- NOTE | 2017-07-09 15:03 | DS ---
CC: Dr. Atkins; Dr. Henning; [facility].* DISCHARGE SUMMARY: DATE OF ADMISSION: 07/07/17 DATE OF DISCHARGE: 07/09/17 PRIMARY CARE PHYSICIAN: Dr. Fe Atkins. DISCHARGE DIAGNOSIS: Acute respiratory failure due to fluid overload that happened as a consequence of psychogenic polydipsia in a patient with end-stage renal disease. SECONDARY DIAGNOSES: 1. End-stage renal disease, on dialysis Tuesdays, , and Saturdays. 2. Chronic obstructive pulmonary disease, oxygen dependent at 2 L. 3. History of congestive heart failure. 4. History of peripheral arterial disease. 5. History of atrial fibrillation. 6. Hypertension. 7. Diabetes type 2. 8. Dyslipidemia. 9. Gout. 10. History of schizoaffective disorder. 11. History of bipolar type 1 disorder. 12. History of coronary artery disease. MEDICATIONS AT DISCHARGE: Unchanged from the patient's home medications and include: 1. Oxygen at 2 L continuously. 2. Albuterol inhaler on a p.r.n. basis. 3. Allopurinol 100 mg daily. 4. Aspirin 81 mg daily. 5. Atenolol 100 mg daily and 50 q.p.m. 6. Tums 1000 mg daily. 7. Plavix 75 mg daily. 8. Benadryl 25 mg daily p.r.n. 9. Depakote 500 mg 3 times a day. 10. Doxazosin 4 mg daily. 11. Insulin glargine 10 units daily. 12. Atrovent nebulizer every 6 hours p.r.n. 13. Imdur ER 30 mg daily. 14. Nitroglycerin sublingually for chest pain. 15. MiraLAX 1 packet daily. 16. Risperdal 4 mg daily. 17. Renvela 800 mg 3 times a day. 18. Zocor 20 mg daily. 19. Kayexalate 15 mg as needed for hyperkalemia as instructed by the dialysis nurse. 20. Norvasc 5 mg daily. 21. Robitussin 5 mL on a p.r.n. basis. At discharge, the patient recommended to have fluid restrictions at 1500 mL in a total of 24 hours. She is also on diabetic and renal diet. LABORATORY DATA: Studies performed during the hospital stay included: On 07/09/17, sodium of 131, potassium of 4.4, chloride 96, carbon dioxide 30, BUN 43, creatinine 3.27. Liver function tests were unremarkable. CBC: White blood cell count of 8.8, hemoglobin of 7.3, hematocrit of 22, and platelets of 231. Her ABG obtained on 07/07/17 showed pH of 7.26, pCO2 of 81, pO2 of 372. Laboratory data pending during the hospital stay included erythropoietin level, ferritin, folate, iron, and iron binding capacity levels as well as vitamin B12 level. The patient's stool occult blood was negative on 07/07/17. CONSULTATIONS DURING THE HOSPITAL STAY: Included Dr. Mendez from Psychiatry. HOSPITALIZATION COURSE: Ms. Tomas is a 57-year-old female with a history of schizophrenia and bipolar disease, who is also an end-stage renal disease patient on dialysis and presented complaining of shortness of breath on . The patient was diagnosed with psychogenic polydipsia. She was placed on fluid restriction and dialyzed, and by the time of discharge, she is back to her baseline. Psychiatrist Dr. Mendez saw the patient in consultation and recommended assisted placement as the best way to monitor the patient's intake and fluid restriction. The patient is going to be discharged to [facility] on 07/09/17. PHYSICAL EXAM: At the time of discharge, blood pressure of 120/54, heart rate of 76 and regular, respiratory rate 16, oxygen saturation 100% on 2 L of oxygen via nasal cannula, and temperature 98.6. General: The patient is a pleasant 57 -year- old female who is in no acute distress. Alert, awake, and oriented x3. HEENT: Head, atraumatic and normocephalic. Eyes, pupils are equal and reactive to light and accommodation. Oropharynx clear. Mucosa moist. Neck: Supple. No JVD. No bruits bilaterally. Cardiovascular: Regular rate and rhythm. No murmurs. Respiratory: Clear to auscultation bilaterally. Abdomen: Soft, nontender. Bowel sounds present in all 4 quadrants. Extremities: There is +1 pitting pedal edema bilaterally. Pulses +2 bilaterally. There is no clubbing or cyanosis. Neuro Evaluation: Speech clear. Cranial nerves II through XII grossly intact. Motor strength is 5/5 bilaterally. ASSESSMENT/PLAN: Please note that the patient was noted to be significantly anemic, but the anemia was normocytic. As above mentioned, the patient's iron studies are pending at the time of dictation, but the patient had stools that was guaiac negative and she had no evidence of acute bleeding. I believe the patient has worsening anemia of chronic disease and end-stage renal disease and she may require Epogen injections, which can be done with the patient's dialysis treatment. The patient was dialyzed on the day of discharge and I suspect that the best idea will be for the patient to be dialyzed once again on 07/10/17. Please note this is a short summary of the patient's hospitalization. Please refer to further medical records for details. TIME SPENT: Approximately 40 minutes were spent on the patient's discharge. [id number]/[facility] #: [id number] [place]ER[place]
[2017-07-09 17:38] LABS: Ferritin 631.2 ng/mL (11-307)
[2017-07-09] MEDS: Atorvastatin* 10 MG TAB PO SCH (17:40)
[2017-07-09] MEDS: Insulin GLARGINE(*) 1 UNITS UNIT SUBCUT SCH (20:35)
[2017-07-09] MEDS ORDERED: Docusate CAP* 100 MG PO SCH (21:00)
[2017-07-10] MEDS: Insulin LISPRO* 1 UNITS UNIT SUBCUT SCH (07:33)
[2017-07-10 08:39] VITALS: BP 132/63
[2017-07-10] MEDS: Tiotropium CAP.INH* CAP.INH/18 MCG (USE ORDER SET !) INH SCH (08:53)
[2017-07-10] MEDS: Mometasone/Formoter 200/5 MDI INH SCH (08:54)
[2017-07-10] MEDS: Sevelamer TAB* 800 MG PO SCH (09:04)
[2017-07-10] MEDS: Divalproex ER TAB(*) 500 MG PO SCH (09:04)
== END 2017-07-10 10:10 | DRG 133 ==
LOC: ED 23:00 → ICU 07-07 00:09 → MED 07-08 08:34
PROVIDERS: ADMIT Hospitalist; ATTEND Internal Medicine
PROC: 5A1D60Z (ICD-10-PCS; principal; 2017-07-07)
DX: J96.02 Acute respiratory failure with hypercapnia (principal); I13.2 Hypertensive heart and chronic kidney disease with heart failure and with stage 5 chronic kidney disease, or end stage renal disease; E11.22 Type 2 diabetes mellitus with diabetic chronic kidney disease; N18.6 End stage renal disease; Z99.81 Dependence on supplemental oxygen; I48.0 Paroxysmal atrial fibrillation; J96.01 Acute respiratory failure with hypoxia; R63.1 Polydipsia; I50.9 Heart failure, unspecified; Z99.2 Dependence on renal dialysis; J44.9 Chronic obstructive pulmonary disease, unspecified; I73.9 Peripheral vascular disease, unspecified; E78.5 Hyperlipidemia, unspecified; M10.9 Gout, unspecified; I25.10 Atherosclerotic heart disease of native coronary artery without angina pectoris; F17.210 Nicotine dependence, cigarettes, uncomplicated; D63.1 Anemia in chronic kidney disease; F25.0 Schizoaffective disorder, bipolar type; E87.70 Fluid overload, unspecified; I25.2 Old myocardial infarction; Z79.1 Long term (current) use of non-steroidal anti-inflammatories (NSAID); Z79.82 Long term (current) use of aspirin; Z79.4 Long term (current) use of insulin; Z79.899 Other long term (current) drug therapy; Z88.5 Allergy status to narcotic agent; Z88.8 Allergy status to other drugs, medicaments and biological substances; Z84.1 Family history of disorders of kidney and ureter; Z82.49 Family history of ischemic heart disease and other diseases of the circulatory system; Z91.11 Patient's noncompliance with dietary regimen; Z79.01 Long term (current) use of anticoagulants
CPT/HCPCS: 36415; 36600; 71010; 80053; 82270; 82607; 82668; 82728; 82746; 82803; 83036; 83540; 83550; 83605; 83735; 83880; 84484; 85025; 85610; 85730; 87040; 87641; 90935; 93005; 94640; 94660; 94760; 99406; A9270-GY; G0257; J0456; J0696; J1644; J1940; J2270